=== PATIENT | female | born 1965 | race Caucasian/White ===

== ENCOUNTER 2019-04-06 12:01 | Emergency (ER) | payer MEDICARE ==
[2019-04-06] MEDS ORDERED: ASPIRIN 81 MG TABLET, CHEWABLE PO ONE (12:25)
--- NOTE | 2019-04-06 12:27 | ER Document Report ---
ED Medical Screen (RME) - General Chief Complaint: Shortness Of Breath Stated Complaint: CHEST PAIN Time Seen by Provider: 04/06/19 12:21 Mode of Arrival: Ambulatory Information source: Patient Notes: This 54-year-old female with history of COPD pneumonia Crohn's gastric bypass presents emergency department with shortness of breath for the past 2 weeks. Reports worsening in the last couple days. Reports she starting to talk in her sleep which is what happened when she was very low on oxygen in the past. Reports she has been intubated last year due to pneumonia. Reports she is also been revised by EMS due to to the lack of oxygen. O2 sat 90%. Patient does not use home oxygen. Also complains of chest tightness. I have greeted and performed a rapid initial assessment of this patient. A comprehensive ED assessment and evaluation of the patient, analysis of test results and completion of the medical decision making process will be conducted by additional ED providers. Dictation of this chart was performed using voice recognition software; therefore, there may be some unintended grammatical errors. - Related Data Allergies/Adverse Reactions: Penicillins Allergy (Verified 04/06/19 12:22) Physical Exam - Vital signs Vitals: Temp Pulse Resp BP Pulse Ox 98.1 F 86 20 126/87 H 90 L 04/06/19 12:18 04/06/19 12:18 04/06/19 12:18 04/06/19 12:18 04/06/19 12:18 Course - Vital Signs Vital signs: Temp Pulse Resp BP Pulse Ox 98.1 F 86 20 126/87 H 90 L 04/06/19 12:18 04/06/19 12:18 04/06/19 12:18 04/06/19 12:18 04/06/19 12:18
--- NOTE | 2019-04-06 13:03 | RADIOLOGY REPORT (SQ) ---
EXAM DESCRIPTION: CHEST 2 VIEWS COMPLETED DATE/TIME: 04/06/2019 12:53 pm REASON FOR STUDY: HX COPD SOB HX PNEUMONIA COMPARISON: None. EXAM PARAMETERS: NUMBER OF VIEWS: two views TECHNIQUE: Digital Frontal and Lateral radiographic views of the chest acquired. RADIATION DOSE: NA LIMITATIONS: none FINDINGS: LUNGS AND PLEURA: Emphysematous change with hyperinflation and flattening of the hemidiaph ragm. No focal consolidation, pleural effusion or pneumothorax. MEDIASTINUM AND HILAR STRUCTURES: No masses or contour abnormalities. HEART AND VASCULAR STRUCTURES: Normal heart size. Aortic atherosclerosis. BONES: No acute findings. HARDWARE: Prior cholecystectomy. Cervical fusion hardware. OTHER: No other significant finding. IMPRESSION: Emphysematous change without focal consolidation or other evidence of acute cardiopulmon jairo process. TECHNICAL DOCUMENTATION: JOB ID: [id number] [employer]- All Rights Reserved Reading location - IP/workstation name: [email or web address]
[2019-04-06 14:31] LABS: ABSOLUTE BASOPHILS # (AUTO) 0.1 10^3/uL (0.0-0.2); ABSOLUTE EOSINOPHILS # (AUTO) 0.1 10^3/uL (0.0-0.6); ABSOLUTE LYMPHOCYTES (AUTO) 2.8 10^3/uL (0.5-4.7); ABSOLUTE MONOCYTES (AUTO) 0.8 10^3/uL (0.1-1.4); BASOPHILS % (AUTO) 0.6 % (0-2); EOSINOPHILS % (AUTO) 1.3 % (0-6); HEMATOCRIT 46.8 % (36.0-47.0); HEMOGLOBIN 15.8 g/dL (12.0-15.5); LYMPHOCYTES % (AUTO) 29.1 % (13-45); MEAN CORPUSCULAR HEMOGLOBIN 30.7 pg (27.0-33.4); MEAN CORPUSCULAR HGB CONC 33.9 g/dL (32.0-36.0); MEAN CORPUSCULAR VOLUME 91 fl (80-97); MONOCYTES % (AUTO) 7.9 % (3-13); PLATELET COUNT 195 10^3/uL (150-450); RED BLOOD COUNT 5.16 10^6/uL (3.72-5.28); RED CELL DISTRIBUTION WIDTH 14.1 % (11.5-14.0); SEGMENTED NEUTROPHILS % (AUTO) 61.1 % (42-78); TOTAL CELLS COUNTED % (AUTO) 100 %; WHITE BLOOD COUNT 9.8 10^3/uL (4.0-10.5)
[2019-04-06 14:43] LABS: ARTERIAL BLOOD BASE EXCESS 1.5 mmol/L; ARTERIAL BLOOD H2CO3 1.22 mmol/L (1.05-1.35); ARTERIAL BLOOD HCO3 25.9 mmol/L (20-24); ARTERIAL BLOOD O2 SATURATION 91.3 % (94-98); ARTERIAL BLOOD PCO2 40.4 mmHg (35-45); ARTERIAL BLOOD PH 7.43 (7.35-7.45); ARTERIAL BLOOD PO2 59.3 mmHg (80-100); ARTERIAL BLOOD TOTAL CO2 27.2 mmol/L (21-25)
[2019-04-06 14:45] LABS: ARTERIAL BLOOD FIO2 ROOM AIR
--- NOTE | 2019-04-06 14:58 | ER Document Report ---
ED General - General Chief Complaint: Shortness Of Breath Stated Complaint: CHEST PAIN Time Seen by Provider: 04/06/19 12:21 Primary Care Provider: EILEEN NICK MD [ACTIVE STAFF] - Follow up in 3-5 days Mode of Arrival: Ambulatory Information source: Patient - HPI Notes: Patient presents with multiple complaints. She states she has been short of breath. It is worse with exertion and better with rest. She states that she is also had a dry cough. But no fever. She states that her roommate told her that she was talking to people that were not there. She states that when she moves around she also has an exacerbation of her chronic abdominal pain. Patient states that she is a former smoker. There is no radiation of her symptoms. They have been moderate. She states she has a history of COPD. She also states she has a history of Crohn's disease. - Related Data Allergies/Adverse Reactions: Penicillins Allergy (Verified 04/06/19 12:22) Past Medical History - General Information source: Patient - Social History Smoking Status: Current Every Day Smoker Frequency of alcohol use: None Drug Abuse: None Family History: Reviewed & Not Pertinent Patient has suicidal ideation: No Patient has homicidal ideation: No Pulmonary Medical History: Reports: Hx COPD, Hx Pneumonia Past Surgical History: Reports: Hx Abdominal Surgery - gastric by-pass Review of Systems - Review of Systems Constitutional: Malaise, Weakness Cardiovascular: Chest pain, Palpitations Respiratory: Cough, Short of breath Gastrointestinal: Abdominal pain, Nausea -: Yes All other systems reviewed and negative Physical Exam - Vital signs Vitals: Temp Pulse Resp BP Pulse Ox 98.1 F 86 20 126/87 H 90 L 04/06/19 12:18 04/06/19 12:18 04/06/19 12:18 04/06/19 12:18 04/06/19 12:18 Interpretation: Normal, Other - Although patient's oxygen saturation in triage w as 90% on room air I have not seen her the hypoxic yet. The patient has been on room air here for over an hour and is 97 to 98%. - General General appearance: Appears well, Alert - HEENT Head: Normocephalic, Atraumatic Eyes: Normal Pupils: PERRL - Respiratory Respiratory status: No respiratory distress Chest status: Nontender Breath sounds: Decreased air movement Chest palpation: Normal - Cardiovascular Rhythm: Regular Heart sounds: Normal auscultation Murmur: No - Abdominal Inspection: Normal Distension: No distension Bowel sounds: Normal Tenderness: Nontender Organomegaly: No organomegaly - Back Back: Normal, Nontender - Extremities General upper extremity: Normal inspection, Nontender, Normal color, Normal ROM, Normal temperature General lower extremity: Normal inspection, Nontender, Normal color, Normal ROM, Normal temperature, Normal weight bearing. No: Tyron's sign - Neurological Neuro grossly intact: Yes Cognition: Normal Orientation: AAOx4 Geraldine Coma Scale Eye Opening: Spontaneous Geraldine Coma Scale Verbal: Oriented Geraldine Coma Scale Motor: Obeys Commands [place] Coma Scale Total: 15 Speech: Normal Motor strength normal: LUE, RUE, LLE, RLE Sensory: Normal - Psychological Associated symptoms: Normal affect, Normal mood - Skin Skin Temperature: Warm Skin Moisture: Dry Skin Color: Normal Course - Re-evaluation Re-evalutation: 04/06/19 15:18 Patient reassessed just now. She has no significant complaints. Vital signs are unremarkable. She is saturating 96% on room air. She is in no respiratory distress. Work-up is essentially unremarkable. - Vital Signs Vital signs: Temp Pulse Resp BP Pulse Ox 98.1 F 86 20 126/87 H 97 04/06/19 12:18 04/06/19 12:18 04/06/19 12:18 04/06/19 12:18 04/06/19 12:25 - Laboratory Result Diagrams: 04/06/19 14:18 04/06/19 14:18 Laboratory results interpreted by me: 04/06/19 04/06/19 04/06/19 14:18 14:18 14:34 Hgb 15.8 H RDW 14.1 H ABG pO2 59.3 L ABG HCO3 25.9 H ABG Total CO2 27.2 H ABG O2 Saturation 91.3 L Creatinine 0.45 L - Diagnostic Test Radiology reviewed: Image reviewed, Reports reviewed - EKG Interpretation by Me EKG shows normal: Sinus rhythm Rate: Normal - 67 Rhythm: NSR [place]/QRS: No: Right axis deviation, Left axis deviation Discharge - Discharge Clinical Impression: COPD exacerbation Condition: Stable Disposition: HOME, SELF-CARE Instructions: Chronic Obstructive Lung Disease ([facility]) Additional Instructions: Please call your primary care doctor as soon as possible to arrange follow-up Prescriptions: Cefdinir 300 mg PO BID 7 Days #14 capsule Referrals: EILEEN NICK MD [ACTIVE STAFF] - Follow up in 3-5 days
[2019-04-06 15:04] LABS: CREATINE KINASE MB 0.69 ng/mL (<4.55)
[2019-04-06 15:05] LABS: TROPONIN I < 0.012 ng/mL
[2019-04-06 15:17] LABS: ALBUMIN 4.2 g/dL (3.5-5.0); ALKALINE PHOSPHATASE 61 U/L (38-126); ANION GAP 8 (5-19); ASPARTATE AMINO TRANSFERASE 33 U/L (14-36); BILIRUBIN,DIRECT 0.2 mg/dL (0.0-0.4); BILIRUBIN,TOTAL 0.5 mg/dL (0.2-1.3); BLOOD UREA NITROGEN 10 mg/dL (7-20); CALCIUM 9.6 mg/dL (8.4-10.2); CARBON DIOXIDE 27 mmol/L (22-30); CHLORIDE 103 mmol/L (98-107); CREATINE KINASE 40 U/L (30-135); GLUCOSE 94 mg/dL (75-110); TOTAL PROTEIN 7.2 g/dL (6.3-8.2)
[2019-04-06 16:35] VITALS: BP 110/75
--- NOTE | 2019-04-07 09:06 | EKG REPORT ---
SEVERITY:- BORDERLINE ECG - SINUS RHYTHM BORDERLINE T ABNORMALITIES, ANT-LAT LEADS : Confirmed by: Tim Coburn 07-Apr-2019 09:05:42
== END 2019-04-06 14:00 | disposition home or self-care (01) ==
LOC: EDBD → ER 12:01
DX: J44.1 Chronic obstructive pulmonary disease with (acute) exacerbation (principal); R06.02 Shortness of breath; R07.9 Chest pain, unspecified; R05 Cough; R10.9 Unspecified abdominal pain; G89.29 Other chronic pain; K50.90 Crohn's disease, unspecified, without complications; F17.200 Nicotine dependence, unspecified, uncomplicated
CPT/HCPCS: 36415; 71046; 80053; 82550; 82553; 82803; 84484; 85025; 93005; 93010; 99285

== ENCOUNTER 2019-04-16 16:22 | Inpatient (IN) | payer MEDICARE ==
--- NOTE | 2019-04-16 16:44 | ER Document Report ---
ED Medical Screen (RME) - General Chief Complaint: Altered Mental Status Stated Complaint: ALTERED MENTAL STATUS Time Seen by Provider: 04/16/19 16:39 Mode of Arrival: Wheelchair Information source: Patient Notes: 54-year-old female presents to ED for complaint of altered mental status with a okay set of 84- has 85 when she first walked in.. She COPD when she she also has Crohn's disease GI COPD. Her ex- who lives with her is with her and states she has done this multiple times in the past and when she gets oxygen on she clears up. She had very slurred speech and was not making complete sense we put her on 2 L of oxygen her O2 sat has come up to 95 and she is speaking more clearly. She states she feels much better now that she is on the O2. She is not on O2 at home. She has a history of Crohn's has a botched bypass and with minimal intestines but no colostomy bag. She states she had a colonoscopy last week and the week before and they were not able to get the call colonoscopy camera through either time. She states she has endoscopy scheduled for Thursday. I have greeted and performed a rapid initial assessment of this patient. A comprehensive ED assessment and evaluation of the patient, analysis of test results and completion of medical decision making process will be conducted by an additional ED providers. - Related Data Allergies/Adverse Reactions: Penicillins Allergy (Verified 04/06/19 12:22) Past Medical History Pulmonary Medical History: Reports: Hx COPD, Hx Pneumonia Past Surgical History: Reports: Hx Abdominal Surgery - gastric by-pass Physical Exam - Vital signs Vitals: Temp Pulse Resp BP Pulse Ox 98.7 F 96 16 124/83 85 L 04/16/19 16:29 04/16/19 16:29 04/16/19 16:29 04/16/19 16:29 04/16/19 16:29 Course - Vital Signs Vital signs: Temp Pulse Resp BP Pulse Ox 98.7 F 96 16 124/83 85 L 04/16/19 16:29 04/16/19 16:29 04/16/19 16:29 04/16/19 16:29 04/16/19 16:29
--- NOTE | 2019-04-16 18:02 | RADIOLOGY REPORT (SQ) ---
EXAM DESCRIPTION: CHEST 2 VIEWS COMPLETED DATE/TIME: 04/16/2019 5:26 pm REASON FOR STUDY: copd difficulty breathing COMPARISON: Chest x-ray 04/06/2019 EXAM PARAMETERS: NUMBER OF VIEWS: two views TECHNIQUE: Digital Frontal and Lateral radiographic views of the chest acquired. RADIATION DOSE: NA LIMITATIONS: none FINDINGS: LUNGS AND PLEURA: There is blunting of the bilateral costophrenic angles suggestive of sma ll pleural effusions. No consolidation or pneumothorax. Hyperlucent lungs are suggestive of emphyse ma. MEDIASTINUM AND HILAR STRUCTURES: No masses or contour abnormalities. HEART AND VASCULAR STRUCTURES: Heart normal size. No evidence for failure. BONES: No acute findings. HARDWARE: None in the chest. Orthopedic hardware at the lower cervical spine. IMPRESSION: Small bilateral pleural effusions. Emphysema. TECHNICAL DOCUMENTATION: JOB ID: [id number] 2010 [employer]- All Rights Reserved Reading location - IP/workstation name: [email or web address]
--- NOTE | 2019-04-16 18:16 | ER Document Report ---
ED Dizziness/Weakness - General Chief Complaint: Breathing Difficulty Stated Complaint: ALTERED MENTAL STATUS Time Seen by Provider: 04/16/19 16:39 Mode of Arrival: Wheelchair Notes: 54-year-old female with history of Crohn's disease, gastric bypass, COPD presents to the emergency department with chief complaint of altered mental status and shortness of breath. Per the triage note patient arrived with an SPO2 of 84 to 85%. Collateral information from her ex- per triage note states that she has done this multiple times in the past and when she receives oxygen her mental status improves. Patient states that she woke up and her family members were looking over her and she was on the floor and does not re member what happened. She was confused. Patient states that she is feeling better after receiving oxygen and she is mentating more clearly. Of note, the nurse saw her her previous visit and states that she does appear to be more obtunded. No fevers or chills, no new illness, no shortness of breath or chest pain, no palpitations. No other complaints TRAVEL OUTSIDE OF THE [place] IN LAST 30 DAYS: No - Related Data Allergies/Adverse Reactions: Penicillins Allergy (Verified 04/06/19 12:22) Past Medical History - General Information source: Patient - Social History Smoking Status: Current Every Day Smoker Family History: Reviewed & Not Pertinent Patient has suicidal ideation: No Patient has homicidal ideation: No Pulmonary Medical History: Reports: Hx COPD, Hx Pneumonia Past Surgical History: Reports: Hx Abdominal Surgery - gastric by-pass Review of Systems - Review of Systems Constitutional: See HPI EENT: No symptoms reported Cardiovascular: See HPI Respiratory: See HPI Gastrointestinal: See HPI Genitourinary: See HPI Female Genitourinary: No symptoms reported Musculoskeletal: No symptoms reported Skin: No symptoms reported Hematologic/Lymphatic: No symptoms reported Neurological/Psychological: See HPI Physical Exam - Vital signs Vitals: Temp Pulse Resp BP Pulse Ox 98.7 F 96 16 124/83 85 L 04/16/19 16:29 04/16/19 16:29 04/16/19 16:29 04/16/19 16:29 04/16/19 16:29 - Notes Notes: PHYSICAL EXAMINATION: Reviewed vital signs and charting by RN GENERAL: Alert, interacts well. No acute distress. HEAD: Normocephalic, atraumatic. EYES: Pupils equal and round. Extraocular movements intact. ENT: Oral mucosa moist, tongue midline. NECK: Full range of motion. Trachea midline. LUNGS: Clear to auscultation bilaterally, no wheezes, rales, or rhonchi. No respiratory distress. HEART: Regular rate and rhythm. No murmur ABDOMEN: soft, non-tender. No distention. Bowel sounds present EXTREMITIES: Moves all 4 extremities spontaneously. No edema, No cyanosis. NEURO: A &O X 3, normal speech, PERRL, EOMI, SILT, follows commands in all 4 extremities, no gross abnormalities of cranial nerves, no focal neuro deficits, no pronator drift, [id number] testing normal, distribution field technician strength 5/5 bilateral, 5/5 strength in both proximal and distal upper and lower extremities PSYCH: Normal affect, normal mood. SKIN: Warm, dry, normal turgor. No rashes or lesions noted. Course - Re-evaluation Re-evalutation: 04/16/19 19:56 Patient presented somnolent and borderline obtunded. Nurse Fauzia saw her her most recent visit and states that her mental status is significantly worse today. Work-up overall unremarkable, labs grossly within normal limits other than ABG done which did show a PCO2 of 65 and a PO2 of 51.8. Chest x-ray showed small bilateral pleural effusions. EKG showed sinus rhythm with a rate of 79. Patient would frequently doze off while speaking midsentence so after discussing with my attending physician the decision was made to initiate BiPAP and called to admit the patient. I contacted Dr. Jaime, hospitalist, who is in the middle of a code right now so I will attempt to call him back. 04/16/19 20:08 04/16/19 20:[address] Jaime, hospitalist who is accepting the patient for full admission to [facility]. - Vital Signs Vital signs: Temp Pulse Resp BP Pulse Ox 98.7 F 96 18 107/76 94 04/16/19 16:29 04/16/19 16:29 04/16/19 18:01 04/16/19 18:00 04/16/19 18:01 - Laboratory Result Diagrams: 04/16/19 18:35 04/16/19 17:22 Laboratory results interpreted by me: 04/16/19 04/16/19 17:22 19:01 Carbonic Acid 1.90 H ABG pH 7.32 L ABG pCO2 63.0 H ABG pO2 51.8 L ABG HCO3 31.7 H ABG Total CO2 33.7 H ABG O2 Saturation 82.9 L Creatinine 0.43 L AST 42 H Discharge - Discharge Clinical Impression: Hypoxia, Hypercarbia Altered mental status Qualifiers: Altered mental status type: somnolence Qualified Code(s): R40.0 - Somnolence Condition: Stable Disposition: ADMITTED INPATIENT Admitting Provider: Addison (Hospitalist) Unit Admitted: [facility]
[2019-04-16 18:25] LABS: ALBUMIN 4.3 g/dL (3.5-5.0); ALKALINE PHOSPHATASE 76 U/L (38-126); ANION GAP 10 (5-19); ASPARTATE AMINO TRANSFERASE 42 U/L (14-36); BILIRUBIN,DIRECT 0.3 mg/dL (0.0-0.4); BILIRUBIN,TOTAL 0.5 mg/dL (0.2-1.3); BLOOD UREA NITROGEN 11 mg/dL (7-20); CALCIUM 9.4 mg/dL (8.4-10.2); CARBON DIOXIDE 30 mmol/L (22-30); CHLORIDE 99 mmol/L (98-107); CREATINE KINASE 55 U/L (30-135); GLUCOSE 85 mg/dL (75-110); POTASSIUM 4.4 mmol/L (3.6-5.0); TOTAL PROTEIN 7.9 g/dL (6.3-8.2)
[2019-04-16 18:31] LABS: ALCOHOL < 10 mg/dL (NONE DETECTED)
[2019-04-16 18:38] LABS: TROPONIN I < 0.012 ng/mL
[2019-04-16 18:51] LABS: ABSOLUTE EOSINOPHILS # (AUTO) 0.2 10^3/uL (0.0-0.6); ABSOLUTE LYMPHOCYTES (AUTO) 3.4 10^3/uL (0.5-4.7); ABSOLUTE MONOCYTES (AUTO) 0.9 10^3/uL (0.1-1.4); ABSOLUTE NEUT (AUTO) 5.9 10^3/uL (1.7-8.2); BASOPHILS % (AUTO) 0.5 % (0-2); EOSINOPHILS % (AUTO) 1.5 % (0-6); HEMATOCRIT 41.5 % (36.0-47.0); HEMOGLOBIN 14.1 g/dL (12.0-15.5); LYMPHOCYTES % (AUTO) 32.6 % (13-45); MEAN CORPUSCULAR HEMOGLOBIN 30.5 pg (27.0-33.4); MEAN CORPUSCULAR HGB CONC 33.9 g/dL (32.0-36.0); MEAN CORPUSCULAR VOLUME 90 fl (80-97); MONOCYTES % (AUTO) 8.5 % (3-13); PLATELET COUNT 198 10^3/uL (150-450); RED BLOOD COUNT 4.61 10^6/uL (3.72-5.28); RED CELL DISTRIBUTION WIDTH 13.5 % (11.5-14.0); SEGMENTED NEUTROPHILS % (AUTO) 56.9 % (42-78); TOTAL CELLS COUNTED % (AUTO) 100 %; WHITE BLOOD COUNT 10.4 10^3/uL (4.0-10.5)
[2019-04-16 18:57] LABS: INTERNATIONAL RATION (INR) 1.07
[2019-04-16 18:58] LABS: PARTIAL THROMBOPLASTIN TIME 29.4 SEC (23.5-35.8)
[2019-04-16 19:11] LABS: ARTERIAL BLOOD BASE EXCESS 3.7 mmol/L; ARTERIAL BLOOD HCO3 31.7 mmol/L (20-24); ARTERIAL BLOOD O2 SATURATION 82.9 % (94-98); ARTERIAL BLOOD PH 7.32 (7.35-7.45); ARTERIAL BLOOD PO2 51.8 mmHg (80-100); ARTERIAL BLOOD TOTAL CO2 33.7 mmol/L (21-25)
[2019-04-16 19:12] LABS: ARTERIAL BLOOD FIO2 ROOM AIR
--- NOTE | 2019-04-16 19:18 | EKG REPORT ---
SEVERITY:- NORMAL ECG - SINUS RHYTHM : Confirmed by: Ladi Stern MD 16-Apr-2019 19:17:13
[2019-04-16 21:07] LABS: APPEARANCE,URINE SLIGHTLY-CLOUDY; BILIRUBIN,URINE NEGATIVE (NEGATIVE); CALCIUM OXALATE CRYSTALS,URINE FEW /HPF; GLUCOSE, URINE NEGATIVE (NEGATIVE); KETONES,URINE TRACE mg/dL (NEGATIVE); LEUKOCYTE ESTERASE,URINE NEGATIVE (NEGATIVE); NITRITE,URINE NEGATIVE (NEGATIVE); PROTEIN,URINE NEGATIVE (NEGATIVE); URINE SPECIFIC GRAVITY 1.026
[2019-04-16 21:10] LABS: COLOR,URINE DARK YELLOW
[2019-04-16 21:22] LABS: URINE AMPHETAMINES SCREEN NEGATIVE; URINE BARBITURATES SCREEN NEGATIVE; URINE BENZODIAZEPINES SCREEN UNCONFIRMED POSITIVE; URINE COCAINE SCREEN NEGATIVE; URINE MARIJUANA (THC) SCREEN NEGATIVE; URINE METHADONE SCREEN NEGATIVE; URINE PHENCYCLIDINE SCREEN NEGATIVE
--- NOTE | 2019-04-16 21:26 | PDOC H&P ---
History of Present Illness Admission Date/PCP: 04/16/19 20:45 No local PCP Patient complains of: Altered mental status History of Present Illness: BERTA DUMAS is a 54 year old female who presented to the emergency room with an acute altered mental status. Patient was brought to the emergency room by her ex- because she became confused, somewhat combative and very drowsy while they were playing pool at a local pool cho. Her ex- explained that in the past she has improved when she receives oxygen in such situations in the past thus prompting him to bring her to the emergency room. The patient verifies his assertion and further admits that she was told her COPD was severe and that she should be on chronic oxygen therapy at home and should use CPAP at night, both of which were prescribed for her by her acute care surgeon in [place]. She admits that she has been in denial about her diagnosis and has refused to use home oxygen or CPAP. She admits that she is on chronic pain management and takes multiple controlled substances as part of her therapy. She denies any acc ompanying or associated signs and symptoms and she has not identified any additional aggravating or ameliorating factors for her altered mental status. In the emergency room the patient was found to be obtunded but arousable to loud verbal and mildly painful stimuli. An arterial blood gas was obtained which showed a PCO2 of 65 a PO2 of 50 and an oxygen saturation of 88%. Patient was subsequently placed on BiPAP and admitted for further evaluation and treatment. Past Medical History Cardiac Medical History: Denies: Coronary Artery Disease, Hypertension Pulmonary Medical History: Reports: Chronic Obstructive Pulmonary Disease (COPD), Pneumonia EENT Medical History: Denies: Cataracts, Ears - Hearing aids Neurological Medical History: Denies: Hemorrhagic CVA, Ischemic CVA, Seizures Endocrine Medical History: Reports: Obesity Denies: Diabetes Mellitus Type 1, Diabetes Mellitus Type 2, Hyperthyroidism, Hypothyroidism Renal/ Medical History: Denies: Chronic Kidney Disease, Nephrolithiasis Malignancy Medical History: Reports: None GI Medical History: Reports: Crohn's Disease, Other - Multiple abdominal wall hernias, status post gastric bypass surgery Denies: Cirrhosis, Hepatitis, Ulcerative Colitis Musculoskeltal Medical History: Denies: Arthritis, Gout Skin Medical History: Denies: Eczema, Psoriasis Psychiatric Medical History: Reports: Tobacco Dependency Denies: Alcohol Dependency, Substance Abuse Traumatic Medical History: Reports: None Hematology: Denies: Anemia, Bleeding Tendencies Infectious Medical History: Reports: None Past Surgical History Past Surgical History: Reports: Cholecystectomy, Gastric Bypass Surgery, Herniorrhaphy - Multiple ventral hernia repairs, Orthopedic Surgery - Cervical spine surgery (discectomies), Other - Colonoscopy, bowel perforation repair Social History Information Source: Patient, Relative Lives with: Alone Smoking Status: Former Smoker Electronic Cigarette use?: No Frequency of Alcohol Use: None Hx Recreational Drug Use: No Drugs: None Hx Prescription Drug Abuse: No Past Social History Note: On chronic pain management with current contract at [facility]. - Advance Directive Resuscitation Status: Full Code Surrogate healthcare decision maker:: Fab Dumas Family History Family History: CAD - Mother and brother, COPD - Father, DM - Father Parental Family History Reviewed: Yes Children Family History Reviewed: No Sibling(s) Family History Reviewed.: Yes Medication/Allergy Home Medications: Cefdinir 300 mg PO BID 7 Days #14 capsule 04/06/19 Allergies/Adverse Reactions: Penicillins Allergy (Verified 04/06/19 12:22) Review of Systems Constitutional: ABSENT: chills, fever(s) Eyes: ABSENT: visual disturbances, other - Eye pain Ears: ABSENT: hearing changes, other - Ear pain Nose, Mouth, and Throat: ABSENT: mouth pain, sore throat Cardiovascular: ABSENT: chest pain, palpitations Respiratory: ABSENT: cough, dyspnea Gastrointestinal: ABSENT: abdominal pain, constipation, diarrhea, nausea, vomiting Genitourinary: ABSENT: dysuria, hematuria Musculoskeletal: PRESENT: other - Chronic pain syndrome. ABSENT: joint swelling, muscle weakness Integumentary: ABSENT: pruritus, rash Neurological: PRESENT: as per HPI, confusion, other - Somnolence. ABSENT: convulsions, focal weakness, memory loss, syncope Psychiatric: ABSENT: anxiety, depression Endocrine: ABSENT: cold intolerance, heat intolerance Hematologic/Lymphatic: ABSENT: easy bleeding, easy bruising Allergic/Immunologic: ABSENT: seasonal rhinorrhea Physical Exam Vital Signs: Temp Pulse Resp BP Pulse Ox 98.7 F 96 18 107/76 94 04/16/19 16:29 04/16/19 16:29 04/16/19 18:01 04/16/19 18:00 04/16/19 18:01 Intake & Output 04/14/19 04/15/19 04/16/19 23:59 23:59 23:59 Weight 53.07 kg General appearance: PRESENT: no acute distress, cooperative Head exam: PRESENT: atraumatic, normocephalic Eye exam: PRESENT: conjunctiva pink. ABSENT: conjunctival injection, scleral icterus Ear exam: PRESENT: normal external ear exam. ABSENT: bleeding, drainage Mouth exam: PRESENT: dry mucosa, neck supple Neck exam: ABSENT: thyromegaly, tracheal deviation Respiratory exam: PRESENT: decreased breath sounds - Minimally decreased breath sounds noted throughout all grady consistent with mild to moderate COPD, prolonged expiratory phas - Mildly prolonged expiratory phase throughout all grady, symmetrical, unlabored, wheezes - Mild expiratory wheezes throughout all grady Cardiovascular exam: PRESENT: RRR. ABSENT: clicks, gallop, rubs Pulses: PRESENT: normal radial pulses, normal dorsalis pedis pul Vascular exam: PRESENT: normal capillary refill. ABSENT: pallor GI/Abdominal exam: PRESENT: normal bowel sounds, soft, tenderness - Tender to palpation over entire abdomen especially in areas of obvious ventral hernias Rectal exam: PRESENT: deferred Extremities exam: ABSENT: joint swelling, pedal edema Musculoskeletal exam: ABSENT: deformity, dislocation Neurological exam: PRESENT: alert, oriented to person, oriented to place, oriented to time, oriented to situation, CN II-XII grossly intact. ABSENT: motor sensory deficit Psychiatric exam: PRESENT: appropriate affect, normal mood Skin exam: PRESENT: dry, intact, warm. ABSENT: jaundice, rash, urticaria Results Laboratory Results: 04/16/19 18:35 04/16/19 17:22 04/16/19 04/16/19 04/16/19 17:22 17:22 17:22 WBC Cancelled RBC Cancelled Hgb Cancelled Hct Cancelled MCV Cancelled MCH Cancelled MCHC Cancelled RDW Cancelled Plt Count Cancelled Seg Neutrophils % Cancelled Carbonic Acid HCO3/H2CO3 Ratio ABG pH ABG pCO2 ABG pO2 ABG HCO3 ABG O2 Saturation ABG Base Excess FiO2 Sodium 138.5 Potassium 4.4 Chloride 99 Carbon Dioxide 30 Anion Gap 10 BUN 11 Creatinine 0.43 L Est GFR ( Amer) > 60 Glucose 85 Calcium 9.4 Magnesium 2.3 Total Bilirubin 0.5 AST 42 H Alkaline Phosphatase 76 Ammonia 25.5 Total Protein 7.9 Albumin 4.3 Urine Color Urine Appearance Urine pH Ur Specific [place] Urine Protein Urine Glucose (UA) Urine Ketones Urine Blood Urine Nitrite Ur Leukocyte Esterase Urine WBC (Auto) Urine RBC (Auto) 04/16/19 04/16/19 04/16/19 18:35 19:01 20:40 WBC 10.4 RBC 4.61 Hgb 14.1 Hct 41.5 MCV 90 MCH 30.5 MCHC 33.9 RDW 13.5 Plt Count 198 Seg Neutrophils % 56.9 Carbonic Acid 1.90 H HCO3/H2CO3 Ratio 16:1 ABG pH 7.32 L ABG pCO2 63.0 H ABG pO2 51.8 L ABG HCO3 31.7 H ABG O2 Saturation 82.9 L ABG Base Excess 3.7 FiO2 ROOM AIR Sodium Potassium Chloride Carbon Dioxide Anion Gap BUN Creatinine Est GFR ( Amer) Glucose Calcium Magnesium Total Bilirubin AST Alkaline Phosphatase Ammonia Total Protein Albumin Urine Color DARK YELLOW Urine Appearance SLIGHTLY-CLOUDY Urine pH 5.0 Ur Specific [place] 1.026 Urine Protein NEGATIVE Urine Glucose (UA) NEGATIVE Urine Ketones TRACE H Urine Blood NEGATIVE Urine Nitrite NEGATIVE Ur Leukocyte Esterase NEGATIVE Urine WBC (Auto) 1 Urine RBC (Auto) 2 04/16/19 04/16/19 17:22 17:22 Creatine Kinase 55 CK-MB (CK-2) 1.20 Troponin I < 0.012 Impressions: Chest X-Ray 04/16/19 16:45 IMPRESSION: Small bilateral pleural effusions. Emphysema. Assessment and Plan - Diagnosis (1) Acute respiratory failure with hypoxia and hypercapnia Is this a current diagnosis for this admission?: Yes (2) Acute delirium Is this a current diagnosis for this admission?: Yes (3) COPD (chronic obstructive pulmonary disease) Qualifiers: COPD type: unspecified COPD Qualified Code(s): J44.9 - Chronic obstructive pulmonary disease, unspecified Is this a current diagnosis for this admission?: Yes (4) Crohn's disease in remission Is this a current diagnosis for this admission?: Yes (5) Chronic pain syndrome Is this a current diagnosis for this admission?: Yes (6) Opioid dependence in controlled environment Is this a current diagnosis for this admission?: Yes - Plan Summary Summary: Patient is admitted to the IMCU unit and will be monitored closely throughout her hospital stay. She will be treated with BiPAP adjusted to provide adequate oxygenation and to eliminate her hypercapnia. ABGs will be obtained as needed. She will be treated with a standard COPD pulmonary toilet utilizing Xopenex, Atrovent and Pulmicort nebulizers. Her mental/neurologic status will be reassessed frequently with neuro checks. A trial dose of Narcan 0.4 mg IV x1 will be considered if patient does not show improvement. She will be continued on her usual oral medications as appropriate when she regains full responsiveness and mental clarity. - Time Time Spent with patient: 25-34 minutes Medications reviewed and adjusted accordingly: Yes Anticipated discharge: Home - Inpatient Certification Based on my medical assessment, after consideration of the patient's comorbidities, presenting symptoms, or acuity I expect that the services needed warrant INPATIENT care.: Yes I certify that my determination is in accordance with my understanding of Medicare's requirements for reasonable and necessary INPATIENT services [42 CFR 412.3e].: Yes Medical Necessity: Need Close Monitoring Due to Risk of Patient Decompensation, Need For Continuous Telemetry Monitoring, Need for Nebulizer Therapy and Monitoring of Response, Need for Neurological Checks, Need for Pain Control, Risk of Complication if Not Cared For in Hospital, Other - Need for noninvasive airway pressure support and monitoring of respiratory failure
[2019-04-16] MEDS ORDERED: RINGERS SOLUTION,LACTATED 1,000 ML IV PRN (22:05)
[2019-04-16] MEDS ORDERED: GLUCAGON,HUMAN RECOMB 1 MG INJ SUBCUT PRN (22:05)
[2019-04-16] MEDS ORDERED: DEXTROSE 40% GEL 15 GM TUBE PO PRN ×2 (22:05)
[2019-04-16] MEDS ORDERED: DEXTROSE 50%-WATER 25 GM/50 ML DISP.SYRIN IV PRN ×2 (22:05)
[2019-04-16] MEDS ORDERED: FAMOTIDINE INJ/PF 20 MG/2 ML SDV IV SCH (22:15)
--- NOTE | 2019-04-16 23:43 | RADIOLOGY REPORT (SQ) ---
EXAM DESCRIPTION: CT HEAD WITHOUT IV CONTRAST COMPLETED DATE/TME: 04/16/2019 00:00 EXAM DESCRIPTION: CT of the head without contrast CLINICAL HISTORY: Altered mental status found on floor COMPARISON: None available TECHNIQUE: Axial CT of the head obtained from the skull apex to the skull base without contrast. FINDINGS: No acute intracranial hemorrhage identified. No mass, mass effect, shift of the midline, abnormal extra-axial fluid collection or CT evidence of acute ischemic change identified. The ventricular system is unremarkable. No acute abnormalities of the supratentorial white matter, basal ganglia, cerebellum, or brainstem. The visualized paranasal sinuses and the mastoids are clear. No skull fracture identified. Visualized orbits and globes are unremarkable. DLP:990.56 mGy-cm IMPRESSION: 1. No acute intracranial abnormality identified. This exam was performed according to our departmental dose-optimization program, which includes automated exposure control, adjustment of the mA and/or kV according to patient size and/or use of iterative reconstruction technique.
--- NOTE | 2019-04-16 23:52 | RADIOLOGY REPORT (SQ) ---
EXAM DESCRIPTION: CT CERVICAL SPINE WITHOUT IV CONTRAST COMPLETED DATE/TME: 04/16/2019 00:00 CLINICAL HISTORY: Altered mental status found on floor COMPARISON: None available TECHNIQUE: Axial CT of the cervical spine obtained without contrast. FINDINGS: Anterior fixation C5-C7 without definite hardware abnormality. The atlantoaxial, atlantodental, and occipitoatlantal intervals are preserved. No fracture identified. Vertebral body height preserved. Prevertebral soft tissues are unremarkable. Intervertebral disc height at C3 to/3 through C4/5 relatively well-preserved. Mild facet arthropathy. Visualized skull base is intact. No fracture of the visualized facial bones. Visualized mastoid air cells and paranasal sinuses are well aerated. Visualized thyroid is unremarkable. No cervical lymphadenopathy. No pneumothorax in the visualized lung apices. IMPRESSION: 1. No acute fracture or subluxation of the cervical spine. 2. Degenerative change of the cervical spine with anterior fusion at C5-C7 This exam was performed according to our departmental dose-optimization program, which includes automated exposure control, adjustment of the mA and/or kV according to patient size and/or use of iterative reconstruction technique.
[2019-04-17] MEDS ORDERED: MAG HYDROX/AL HYDROX/SIMETH SUSP 30 ML UDCUP PO PRN (00:13)
[2019-04-17] MEDS ORDERED: MAGNESIUM HYDROXIDE SUSP 30 ML UDCUP PO PRN (00:13)
[2019-04-17] MEDS: LEVALBUTEROL HCL NEB 1.25 MG/3 ML AMPUL NEB SCH ×3 (00:33→15:51)
[2019-04-17 00:57] LABS: ANION GAP 6 (5-19); BLOOD UREA NITROGEN 10 mg/dL (7-20); CALCIUM 9.1 mg/dL (8.4-10.2); CARBON DIOXIDE 28 mmol/L (22-30); CHLORIDE 102 mmol/L (98-107); CREATINE KINASE 37 U/L (30-135); GLUCOSE 91 mg/dL (75-110); POTASSIUM 4.1 mmol/L (3.6-5.0)
[2019-04-17] MEDS ORDERED: CYANOCOBALAMIN (VITAMIN B-12) INJ 1000 MCG/1 ML VIAL IM ONE ×2 (01:00→06:00)
[2019-04-17 01:15] LABS: CREATINE KINASE MB 0.99 ng/mL (<4.55)
[2019-04-17 01:18] LABS: TROPONIN I < 0.012 ng/mL
[2019-04-17 01:21] LABS: FREE T3 3.56 pg/mL (2.77-5.27); FREE T4 (FREE THYROXINE) 1.23 ng/dL (0.78-2.19)
[2019-04-17 01:35] LABS: THYROID STIMULATING HORMONE 1.06 uIU/mL (0.47-4.68)
[2019-04-17] MEDS: OXYCODONE HCL IR 5 MG TABLET PO PRN ×3 (04:32→16:59)
[2019-04-17 05:56] LABS: HEMATOCRIT 40.6 % (36.0-47.0); HEMOGLOBIN 13.7 g/dL (12.0-15.5); MEAN CORPUSCULAR HEMOGLOBIN 30.5 pg (27.0-33.4); MEAN CORPUSCULAR HGB CONC 33.8 g/dL (32.0-36.0); MEAN CORPUSCULAR VOLUME 90 fl (80-97); PLATELET COUNT 205 10^3/uL (150-450); RED CELL DISTRIBUTION WIDTH 13.7 % (11.5-14.0); WHITE BLOOD COUNT 12.4 10^3/uL (4.0-10.5)
[2019-04-17 06:31] LABS: CREATINE KINASE MB 0.87 ng/mL (<4.55)
[2019-04-17] MEDS: HEPARIN SOD (PORCINE) 5,000 UNIT/ML 1 ML VIAL SUBCUT SCH ×2 (06:31→13:39)
[2019-04-17] MEDS: PANTOPRAZOLE SODIUM 40 MG TABLET.DR PO SCH (06:32)
[2019-04-17 06:39] LABS: TROPONIN I < 0.012 ng/mL
[2019-04-17] MEDS: ONDANSETRON HCL INJ/PF 4 MG/2 ML SDV IV PRN ×3 (07:40→16:09)
[2019-04-17] MEDS: IPRATROPIUM BROMIDE 0.02% NEB 0.5 MG/2.5 ML AMPUL NEB SCH ×2 (08:24→15:51)
[2019-04-17] MEDS: BUDESONIDE NEB 0.5 MG/2 ML AMPUL NEB SCH ×2 (08:24→20:13)
--- NOTE | 2019-04-17 08:28 | PDOC PROGRESS REPORT ---
Subjective Progress Note for:: 04/17/19 Subjective:: 04/17/2019-no complaints this a.m. sitting up in the bed no signs of acute distress Reason For Visit: ACUTE RESPIRATORY FAILURE WITH HYPOXIA/HYPERCAPNIA Physical Exam Vital Signs: Temp Pulse Resp BP Pulse Ox 98.4 F 94 12 90/69 L 95 04/17/19 03:59 04/17/19 03:59 04/17/19 03:59 04/17/19 03:59 04/17/19 03:59 Intake & Output 04/16/19 04/17/19 04/18/19 06:59 06:59 06:59 Intake Total 440 Balance 440 Weight 58.2 kg General appearance: PRESENT: no acute distress, well-developed, well-nourished Neck exam: ABSENT: carotid bruit, JVD, lymphadenopathy, thyromegaly Respiratory exam: PRESENT: clear to auscultation wally, decreased breath sounds, symmetrical, unlabored Cardiovascular exam: PRESENT: RRR. ABSENT: diastolic murmur, rubs, systolic murmur Pulses: PRESENT: normal dorsalis pedis pul Vascular exam: PRESENT: normal capillary refill GI/Abdominal exam: PRESENT: normal bowel sounds, soft. ABSENT: distended, guarding, mass, organolmegaly, rebound, tenderness Extremities exam: PRESENT: full ROM. ABSENT: calf tenderness, clubbing, pedal edema Neurological exam: PRESENT: alert, awake, oriented to person, oriented to place, oriented to time, oriented to situation, CN II-XII grossly intact. ABSENT: motor sensory deficit Psychiatric exam: PRESENT: appropriate affect, normal mood. ABSENT: homicidal ideation, suicidal ideation Skin exam: PRESENT: dry, intact, warm. ABSENT: cyanosis, rash Results Laboratory Results: 04/17/19 05:42 04/16/19 23:50 04/16/19 04/16/19 04/16/19 17:22 17:22 17:22 WBC Cancelled RBC Cancelled Hgb Cancelled Hct Cancelled MCV Cancelled MCH Cancelled MCHC Cancelled RDW Cancelled Plt Count Cancelled Seg Neutrophils % Cancelled Carbonic Acid HCO3/H2CO3 Ratio ABG pH ABG pCO2 ABG pO2 ABG HCO3 ABG O2 Saturation ABG Base Excess FiO2 Sodium 138.5 Potassium 4.4 Chloride 99 Carbon Dioxide 30 Anion Gap 10 BUN 11 Creatinine 0.43 L Est GFR ( Amer) > 60 Glucose 85 Calcium 9.4 Magnesium 2.3 Total Bilirubin 0.5 AST 42 H Alkaline Phosphatase 76 Ammonia 25.5 Total Protein 7.9 Albumin 4.3 TSH Free T4 Free T3 pg/mL Urine Color Urine Appearance Urine pH Ur Specific [place] Urine Protein Urine Glucose (UA) Urine Ketones Urine Blood Urine Nitrite Ur Leukocyte Esterase Urine WBC (Auto) Urine RBC (Auto) 04/16/19 04/16/19 04/16/19 18:35 19:01 20:40 WBC 10.4 RBC 4.61 Hgb 14.1 Hct 41.5 MCV 90 MCH 30.5 MCHC 33.9 RDW 13.5 Plt Count 198 Seg Neutrophils % 56.9 Carbonic Acid 1.90 H HCO3/H2CO3 Ratio 16:1 ABG pH 7.32 L ABG pCO2 63.0 H ABG pO2 51.8 L ABG HCO3 31.7 H ABG O2 Saturation 82.9 L ABG Base Excess 3.7 FiO2 ROOM AIR Sodium Potassium Chloride Carbon Dioxide Anion Gap BUN Creatinine Est GFR ( Amer) Glucose Calcium Magnesium Total Bilirubin AST Alkaline Phosphatase Ammonia Total Protein Albumin TSH Free T4 Free T3 pg/mL Urine Color DARK YELLOW Urine Appearance SLIGHTLY-CLOUDY Urine pH 5.0 Ur Specific [place] 1.026 Urine Protein NEGATIVE Urine Glucose (UA) NEGATIVE Urine Ketones TRACE H Urine Blood NEGATIVE Urine Nitrite NEGATIVE Ur Leukocyte Esterase NEGATIVE Urine WBC (Auto) 1 Urine RBC (Auto) 2 04/16/19 04/16/19 04/17/19 23:50 23:50 05:42 WBC RBC Hgb Hct MCV MCH MCHC RDW Plt Count Seg Neutrophils % Carbonic Acid HCO3/H2CO3 Ratio ABG pH ABG pCO2 ABG pO2 ABG HCO3 ABG O2 Saturation ABG Base Excess FiO2 Sodium 135.5 L Potassium 4.1 Chloride 102 Carbon Dioxide 28 Anion Gap 6 BUN 10 Creatinine 0.36 L Est GFR ( Amer) > 60 Glucose 91 Calcium 9.1 Magnesium 2.1 Total Bilirubin AST Alkaline Phosphatase Ammonia Total Protein Albumin TSH 1.06 Free T4 1.23 Free T3 pg/mL 3.56 Urine Color Urine Appearance Urine pH Ur Specific [place] Urine Protein Urine Glucose (UA) Urine Ketones Urine Blood Urine Nitrite Ur Leukocyte Esterase Urine WBC (Auto) Urine RBC (Auto) 04/17/19 05:42 WBC 12.4 H RBC 4.50 Hgb 13.7 Hct 40.6 MCV 90 MCH 30.5 MCHC 33.8 RDW 13.7 Plt Count 205 Seg Neutrophils % Carbonic Acid HCO3/H2CO3 Ratio ABG pH ABG pCO2 ABG pO2 ABG HCO3 ABG O2 Saturation ABG Base Excess FiO2 Sodium Potassium Chloride Carbon Dioxide Anion Gap BUN Creatinine Est GFR ( Amer) Glucose Calcium Magnesium Total Bilirubin AST Alkaline Phosphatase Ammonia Total Protein Albumin TSH Free T4 Free T3 pg/mL Urine Color Urine Appearance Urine pH Ur Specific [place] Urine Protein Urine Glucose (UA) Urine Ketones Urine Blood Urine Nitrite Ur Leukocyte Esterase Urine WBC (Auto) Urine RBC (Auto) 04/16/19 04/16/19 04/16/19 17:22 17:22 23:50 Creatine Kinase 55 37 CK-MB (CK-2) 1.20 Troponin I < 0.012 04/16/19 04/17/19 04/17/19 23:50 05:42 05:42 Creatine Kinase 36 CK-MB (CK-2) 0.99 0.87 Troponin I < 0.012 < 0.012 Impressions: Cervical Spine CT 04/16/19 00:00 IMPRESSION: 1. No acute fracture or subluxation of the cervical spine. 2. Degenerative change of the cervical spine with anterior fusion at C5-C7 This exam was performed according to our departmental dose-optimization program, which includes automated exposure control, adjustment of the mA and/or kV according to patient size and/or use of iterative reconstruction technique. Head CT 04/16/19 00:00 IMPRESSION: 1. No acute intracranial abnormality identified. This exam was performed according to our departmental dose-optimization program, which includes automated exposure control, adjustment of the mA and/or kV according to patient size and/or use of iterative reconstruction technique. Chest X-Ray 04/16/19 16:45 IMPRESSION: Small bilateral pleural effusions. Emphysema. Assessment and Plan - Plan Summary Summary: Patient is admitted to the IMCU unit and will be monitored closely throughout her hospital stay. She will be treated with BiPAP adjusted to provide adequate oxygenation and to eliminate her hypercapnia. ABGs will be obtained as needed. She will be treated with a standard COPD pulmonary toilet utilizing Xopenex, Atrovent and Pulmicort nebulizers. Her mental/neurologic status will be reasses sed frequently with neuro checks. A trial dose of Narcan 0.4 mg IV x1 will be considered if patient does not show improvement. She will be continued on her usual oral medications as appropriate when she regains full responsiveness and mental clarity. 04/17/2019- acute respiratory failure with hypoxia and hypercapnia-improved at this time. Patient did wear BiPAP overnight we will continue BiPAP while asleep. Patient sitting up in bed at this time wearing nasal cannula able speak in full sent ences lungs are diminished throughout no adventitious breath sounds. Continue bronchodilators steroids and other supportive measures. Acute delirium-most likely secondary to hypercapnia. Patient's mentality is with in her normal range this morning. COPD exacerbation-improved continue bronchodilators steroids and other modalities. Crohn's disease in remission-stable continue to follow Chronic pain syndrome-stable continue to follow Opioid dependence in a controlled environment-stable - Time Time Spent with patient: 15-24 minutes - Inpatient Certification Based on my medical assessment, after consideration of the patient's comorbidities, presenting symptoms, or acuity I expect that the services needed warrant INPATIENT care.: Yes I certify that my determination is in accordance with my understanding of Medicare's requirements for reasonable and necessary INPATIENT services [42 CFR 412.3e].: Yes Medical Necessity: Other - Respiratory support
[2019-04-17] MEDS: DOCUSATE SODIUM 100 MG CAPSULE PO SCH ×2 (11:05→17:00)
[2019-04-17] MEDS: MELOXICAM 7.5 MG TABLET PO SCH (11:05)
[2019-04-17] MEDS: NICOTINE 14 MG/24 HR PATCH.TD24 TD SCH (11:45)
[2019-04-17 13:31] LABS: CREATINE KINASE MB 0.61 ng/mL (<4.55); TROPONIN I < 0.012 ng/mL
[2019-04-17] MEDS ORDERED: OXYCODONE HCL IR 5 MG TABLET PO PRN (17:45)
[2019-04-17] MEDS: LEVALBUTEROL HCL NEB 0.63 MG/3 ML AMPUL NEB PRN (20:13)
[2019-04-17] MEDS: ALPRAZOLAM 0.5 MG TABLET PO PRN (22:36)
[2019-04-18] MEDS: LEVALBUTEROL HCL NEB 1.25 MG/3 ML AMPUL NEB SCH ×4 (00:01→23:54)
[2019-04-18] MEDS: IPRATROPIUM BROMIDE 0.02% NEB 0.5 MG/2.5 ML AMPUL NEB SCH ×4 (00:01→23:54)
[2019-04-18] MEDS: HEPARIN SOD (PORCINE) 5,000 UNIT/ML 1 ML VIAL SUBCUT SCH ×4 (05:56→22:34)
[2019-04-18] MEDS: ALPRAZOLAM 0.5 MG TABLET PO SCH ×2 (05:59→22:35)
[2019-04-18] MEDS: OXYCODONE HCL IR 5 MG TABLET PO PRN ×4 (05:59→19:52)
[2019-04-18] MEDS: PANTOPRAZOLE SODIUM 40 MG TABLET.DR PO SCH (06:00)
[2019-04-18 07:21] LABS: HEMATOCRIT 39.3 % (36.0-47.0); HEMOGLOBIN 13.4 g/dL (12.0-15.5); MEAN CORPUSCULAR HEMOGLOBIN 30.7 pg (27.0-33.4); MEAN CORPUSCULAR VOLUME 90 fl (80-97); PLATELET COUNT 165 10^3/uL (150-450); RED BLOOD COUNT 4.35 10^6/uL (3.72-5.28); RED CELL DISTRIBUTION WIDTH 13.6 % (11.5-14.0)
[2019-04-18 07:55] LABS: BLOOD UREA NITROGEN 11 mg/dL (7-20); CALCIUM 8.7 mg/dL (8.4-10.2); GLUCOSE 101 mg/dL (75-110); POTASSIUM 4.3 mmol/L (3.6-5.0)
[2019-04-18 08:01] LABS: CARBON DIOXIDE 35 mmol/L (22-30); CHLORIDE 97 mmol/L (98-107)
[2019-04-18 08:07] LABS: ANION GAP 4 (5-19)
[2019-04-18] MEDS: ONDANSETRON HCL INJ/PF 4 MG/2 ML SDV IV PRN ×3 (08:15→17:43)
[2019-04-18] MEDS: DESVENLAFAXINE PO SCH (08:15)
--- NOTE | 2019-04-18 08:31 | PDOC PROGRESS REPORT ---
Subjective Progress Note for:: 04/18/19 Subjective:: 04/17/2019-no complaints this a.m. sitting up in the bed no signs of acute distress 04/18/2019-inability to sleep Reason For Visit: ACUTE RESPIRATORY FAILURE WITH HYPOXIA/HYPERCAPNIA Physical Exam Vital Signs: Temp Pulse Resp BP Pulse Ox 98.2 F 86 10 L 99/57 L 91 L 04/18/19 00:38 04/18/19 00:38 04/18/19 00:38 04/18/19 00:38 04/18/19 00:38 Intake & Output 04/17/19 04/18/19 04/19/19 06:59 06:59 06:59 Intake Total 440 1205 Balance 440 1205 Weight 58.2 kg 59.8 kg General appearance: PRESENT: no acute distress, well-developed, well-nourished Neck exam: ABSENT: carotid bruit, JVD, lymphadenopathy, thyromegaly Respiratory exam: PRESENT: clear to auscultation wally. ABSENT: rales, rhonchi, wheezes Cardiovascular exam: PRESENT: RRR. ABSENT: diastolic murmur, rubs, systolic murmur Pulses: PRESENT: normal dorsalis pedis pul Vascular exam: PRESENT: normal capillary refill GI/Abdominal exam: PRESENT: normal bowel sounds, soft. ABSENT: distended, guarding, mass, organolmegaly, rebound, tenderness Extremities exam: PRESENT: full ROM. ABSENT: calf tenderness, clubbing, pedal edema Neurological exam: PRESENT: alert, awake, oriented to person, oriented to place, oriented to time, oriented to situation, CN II-XII grossly intact. ABSENT: motor sensory deficit Psychiatric exam: PRESENT: appropriate affect, normal mood. ABSENT: homicidal ideation, suicidal ideation Skin exam: PRESENT: dry, intact, warm. ABSENT: cyanosis, rash Results Laboratory Results: 04/18/19 06:59 04/18/19 06:59 04/18/19 04/18/19 06:59 06:59 WBC 7.0 RBC 4.35 Hgb 13.4 Hct 39.3 MCV 90 MCH 30.7 MCHC 34.0 RDW 13.6 Plt Count 165 Sodium 135.9 L Potassium 4.3 Chloride 97 L Carbon Dioxide 35 H Anion Gap 4 L BUN 11 Creatinine 0.34 L Est GFR ( Amer) > 60 Glucose 101 Calcium 8.7 Magnesium 2.0 04/16/19 04/16/19 04/16/19 17:22 17:22 23:50 Creatine Kinase 55 37 CK-MB (CK-2) 1.20 Troponin I < 0.012 04/16/19 04/17/19 04/17/19 23:50 05:42 05:42 Creatine Kinase 36 CK-MB (CK-2) 0.99 0.87 Troponin I < 0.012 < 0.012 04/17/19 04/17/19 12:25 12:25 Creatine Kinase 46 CK-MB (CK-2) 0.61 Troponin I < 0.012 Impressions: Cervical Spine CT 04/16/19 00:00 IMPRESSION: 1. No acute fracture or subluxation of the cervical spine. 2. Degenerative change of the cervical spine with anterior fusion at C5-C7 This exam was performed according to our departmental dose-optimization program, which includes automated exposure control, adjustment of the mA and/or kV according to patient size and/or use of iterative reconstruction technique. Head CT 04/16/19 00:00 IMPRESSION: 1. No acute intracranial abnormality identified. This exam was performed according to our departmental dose-optimization program, which includes automated exposure control, adjustment of the mA and/or kV according to patient size and/or use of iterative reconstruction technique. Chest X-Ray 04/16/19 16:45 IMPRESSION: Small bilateral pleural effusions. Emphysema. Assessment and Plan - Plan Summary Summary: Patient is admitted to the IMCU unit and will be monitored closely throughout her hospital stay. She will be treated with BiPAP adjusted to provide adequate oxygenation and to eliminate her hypercapnia. ABGs will be obtained as needed. She will be treated with a standard COPD pulmonary toilet utilizing Xopenex, Atrovent and Pulmicort nebulizers. Her mental/neurologic status will be reassessed frequently with neuro checks. A trial dose of Narcan 0.4 mg IV x1 will be considered if patient does not show improvement. She will be continued on her usual oral medications as appropriate when she regains full respon siveness and mental clarity. 04/17/2019- acute respiratory failure with hypoxia and hypercapnia-improved at this time. Patient did wear BiPAP overnight we will continue BiPAP while asleep. Patient sitting up in bed at this time wearing nasal cannula able speak in full sentences lungs are diminished throughout no adventitious breath sounds. Continue bronchodilators steroids and other supportive measures. Acute delirium-most likely secondary to hypercapnia. Patient's mentality is with in her normal range this morning. COPD exacerbation-improved continue bronchodilators steroids and other modalities. Crohn's disease in remission-stable continue to follow Chronic pain syndrome-stable continue to follow Opioid dependence in a controlled environment-stable 04/18/2019 -acute respiratory failure with hypoxia and hypercapnia-continue show improvement. Patient continues to wear BiPAP at night. Patient sitting up in bed at this time with nasal cannula. Continue supportive measures. Acute delirium-was most likely secondary to hypercapnia resolved at this time continue to follow COPD exacerbation-continue bronchodilator steroids and other supportive measures Crohn's disease-stable continue to follow Chronic pain syndrome-stable continue to follow Opiate dependence in a controlled environment stable Sleep apnea-patient states overnight she is having problems sleeping this is been going on for quite a while. Patient states that she awakens multiple times overnight. This could be sleep apnea will have patient obtain an outpatient sleep study. - Time Time Spent with patient: 15-24 minutes - Inpatient Certification Based on my medical assessment, after consideration of the patient's comorbidities, presenting symptoms, or acuity I expect that the services needed warrant INPATIENT care.: Yes I certify that my determination is in accordance with my understanding of Medicare's requirements for reasonable and necessary INPATIENT services [42 CFR 412.3e].: Yes Medical Necessity: Other - Respiratory support
[2019-04-18] MEDS: BUDESONIDE NEB 0.5 MG/2 ML AMPUL NEB SCH ×2 (08:40→19:58)
[2019-04-18] MEDS: ALPRAZOLAM 0.5 MG TABLET PO PRN (10:30)
[2019-04-18] MEDS: DOCUSATE SODIUM 100 MG CAPSULE PO SCH ×2 (10:30→17:33)
[2019-04-18] MEDS: NICOTINE 14 MG/24 HR PATCH.TD24 TD SCH (10:30)
[2019-04-18] MEDS: MELOXICAM 7.5 MG TABLET PO SCH (10:30)
[2019-04-18] MEDS: HYDROMORPHONE HCL INJ/PF 2 MG/ML AMPULE IV PRN ×3 (14:12→22:34)
[2019-04-18] MEDS: NORMAL SALINE 1000 ML 1,000 ML IV PRN (17:43)
[2019-04-18] MEDS ORDERED: INFLUENZA QUAD (6MOS+) 2019-20 VAC 0.5 ML SYR IM ONE (18:00)
[2019-04-18] MEDS: LEVALBUTEROL HCL NEB 0.63 MG/3 ML AMPUL NEB PRN (19:58)
[2019-04-19] MEDS: OXYCODONE HCL IR 5 MG TABLET PO PRN ×4 (00:12→15:02)
[2019-04-19] MEDS: HYDROMORPHONE HCL INJ/PF 2 MG/ML AMPULE IV PRN ×4 (03:28→14:29)
[2019-04-19] MEDS: NORMAL SALINE 1000 ML 1,000 ML IV PRN ×3 (05:29→07:52)
[2019-04-19 06:12] LABS: HEMATOCRIT 37.9 % (36.0-47.0); HEMOGLOBIN 12.7 g/dL (12.0-15.5); MEAN CORPUSCULAR HEMOGLOBIN 30.4 pg (27.0-33.4); MEAN CORPUSCULAR HGB CONC 33.4 g/dL (32.0-36.0); MEAN CORPUSCULAR VOLUME 91 fl (80-97); PLATELET COUNT 162 10^3/uL (150-450); RED BLOOD COUNT 4.16 10^6/uL (3.72-5.28); RED CELL DISTRIBUTION WIDTH 13.6 % (11.5-14.0); WHITE BLOOD COUNT 7.6 10^3/uL (4.0-10.5)
[2019-04-19 06:26] LABS: BLOOD UREA NITROGEN 10 mg/dL (7-20); CALCIUM 8.2 mg/dL (8.4-10.2); CHLORIDE 102 mmol/L (98-107); GLUCOSE 93 mg/dL (75-110); POTASSIUM 4.3 mmol/L (3.6-5.0)
[2019-04-19 06:32] LABS: CARBON DIOXIDE 33 mmol/L (22-30)
[2019-04-19] MEDS: HEPARIN SOD (PORCINE) 5,000 UNIT/ML 1 ML VIAL SUBCUT SCH ×2 (06:36→13:25)
[2019-04-19] MEDS: PANTOPRAZOLE SODIUM 40 MG TABLET.DR PO SCH (06:36)
[2019-04-19 06:49] LABS: ANION GAP 3 (5-19)
[2019-04-19] MEDS: ONDANSETRON HCL INJ/PF 4 MG/2 ML SDV IV PRN (07:52)
[2019-04-19] MEDS: DESVENLAFAXINE PO SCH (07:52)
[2019-04-19] MEDS: LEVALBUTEROL HCL NEB 1.25 MG/3 ML AMPUL NEB SCH (08:09)
[2019-04-19] MEDS: IPRATROPIUM BROMIDE 0.02% NEB 0.5 MG/2.5 ML AMPUL NEB SCH (08:09)
[2019-04-19] MEDS: BUDESONIDE NEB 0.5 MG/2 ML AMPUL NEB SCH (08:09)
[2019-04-19] MEDS: ALPRAZOLAM 0.5 MG TABLET PO PRN (09:44)
[2019-04-19] MEDS: NICOTINE 14 MG/24 HR PATCH.TD24 TD SCH (09:44)
[2019-04-19] MEDS: MELOXICAM 7.5 MG TABLET PO SCH (09:44)
[2019-04-19] MEDS: DOCUSATE SODIUM 100 MG CAPSULE PO SCH (09:44)
[2019-04-19 15:12] VITALS: BP 85/65
--- NOTE | 2019-04-21 09:52 | PDOC DISCHARGE SUMMARY ---
Impression - Admit/DC Date/PCP Admission Date/Primary Care Provider: 04/16/19 20:45 Discharge Date: 04/19/19 - Discharge Diagnosis (1) Acute respiratory failure with hypoxia and hypercapnia Is this a current diagnosis for this admission?: Yes (2) Acute delirium Is this a current diagnosis for this admission?: Yes (3) COPD (chronic obstructive pulmonary disease) Is this a current diagnosis for this admission?: Yes (4) Chronic pain syndrome Is this a current diagnosis for this admission?: Yes (5) Crohn's disease in remission Is this a current diagnosis for this admission?: Yes (6) Opioid dependence in controlled environment Is this a current diagnosis for this admission?: Yes - Additional Information Resuscitation Status: Full Code Discharge Diet: As Tolerated Discharge Activity: Activity As Tolerated Referrals: LINK CHRISTY NP [NURSE PRACTITIONER] - 04/25/19 2:30 pm NICOLÁS CERDA MD [ACTIVE STAFF] - 04/28/19 1:30 pm (left a message to call us with appointment date) Home Medications: Albuterol Sulfate [Proair HFA Inhalation Aerosol 8.5 gm MDI] 2 puff IH Q6HP PRN 04/17/19 Alprazolam [Xanax] 0.5 mg PO DAILYP PRN 04/17/19 Alprazolam [Xanax] 2 mg PO QHS 04/17/19 Cholestyramine (with Sugar) [Cholestyramine Packet] 4 gm PO DAILY 04/17/19 Cyclobenzaprine HCl [Flexeril 10 mg Tablet] 10 mg PO Q8HP PRN 04/17/19 Desvenlafaxine [Desvenlafaxine ER] 100 mg PO DAILY 04/17/19 Fluconazole [Diflucan] 150 mg PO DAILYP PRN 04/17/19 Fluticasone/Salmeterol [Advair 250-50 Diskus 14 Dose/Diskus] 1 puff IH Q12 04/17/19 Furosemide [Lasix 40 mg Tablet] 40 mg PO DAILY 04/17/19 Gabapentin [Neurontin 100 mg Capsule] 100 mg PO Q8HP PRN 04/17/19 Methocarbamol [Robaxin 750 mg Tablet] 750 mg PO Q8HP PRN 04/17/19 Oxycodone HCl [Oxycodone HCl 10 MG Tablet] 10 mg PO Q4HP PRN 04/17/19 Pantoprazole Sodium 40 mg PO ACBRKFST 04/17/19 Promethazine HCl [Phenergan 25 mg Tablet] 25 mg PO Q8HP PRN 04/17/19 Tiotropium Pala [Spiriva Handihaler 5 Cap/Kit (18 Mcg/Cap)] 1 puff IH DAILY 04/17/19 History of Present Illiness History of Present Illness: Patient is admitted to the IMCU unit and will be monitored closely throughout her hospital stay. She will be treated with BiPAP adjusted to provide adequate oxygenation and to eliminate her hypercapnia. ABGs will be obtained as needed. She will be treated with a standard COPD pulmonary toilet utilizing Xopenex, Atrovent and Pulmicort nebulizers. Her mental/neurologic status will be reassessed frequently with neuro checks. A trial dose of Narcan 0.4 mg IV x1 will be considered if patient does not show improvement. She will be continued on her usual oral medications as appropriate when she regains full responsiveness and mental clarity. Hospital Course Hospital Course: 04/17/2019- acute respiratory failure with hypoxia and hypercapnia-improved at this time. Patient did wear BiPAP overnight we will continue BiPAP while asleep. Patient sitting up in bed at this time wearing nasal cannula able speak in full sentences lungs are diminished throughout no adventitious breath sounds. Continue bronchodilators steroids and other supportive measures. Acute delirium-most likely secondary to hypercapnia. Patient's mentality is with in her normal range this morning. COPD exacerbation-improved continue bronchodilators steroids and other modalities. Crohn's disease in remission-stable continue to follow Chronic pain syndrome-stable continue to follow Opioid dependence in a controlled environment-stable 04/18/2019 -acute respiratory failure with hypoxia and hypercapnia-continue show improvemen t. Patient continues to wear BiPAP at night. Patient sitting up in bed at this time with nasal cannula. Continue supportive measures. Acute delirium-was most likely secondary to hypercapnia resolved at this time continue to follow COPD exacerbation-continue bronchodilator steroids and other supportive measures Crohn's disease-stable continue to follow Chronic pain syndrome-stable continue to follow Opiate dependence in a controlled environment stable Sleep apnea-patient states overnight she is having problems sleeping this is been going on for quite a while. Patient states that she awakens multiple times overnight. This could be sleep apnea will have patient obtain an outpatient sleep study. 04/19/2019 1. Acute respiratory failure with hypoxia and hypercapnia- Significant impr ovement, still requires oxygen. Was discharged home on oxygen. Supplies provided and follow up with PCP scheduled. 2. Acute delirium-was most likely secondary to hypercapnia resolved at this time continue to follow 3. COPD exacerbation-Was started on bronchodilator , bipap and supplemental o2. was discharged on LABA, LAMA and ICSs. Schedulled to follow up with Dr Cerda as out patient. 4. Crohn's disease-In remission. Outpatient pcp and gastroenterology follow up. 5. Chronic pain syndrome-Was restarted on opiods. Sees pain specialist as out patient. Follow with pain specialist. 6. Sleep apnea. Noctural bibap. Follow up appointment was made with Dr Cerda for nocturnal polysomnography and possible home BiPap/CPAP. Physical Exam Vital Signs: Temp Pulse Resp BP Pulse Ox 98.0 F 63 16 85/65 L 91 L 04/19/19 15:11 04/19/19 15:11 04/19/19 15:11 04/19/19 15:11 04/19/19 15:11 Intake & Output 04/20/19 04/21/19 04/22/19 06:59 06:59 06:59 Intake Total 505 Balance 505 General appearance: PRESENT: no acute distress, well-developed, well-nourished Mouth exam: PRESENT: moist, tongue midline Neck exam: ABSENT: carotid bruit, JVD, lymphadenopathy, thyromegaly Respiratory exam: PRESENT: clear to auscultation wally. ABSENT: rales, rhonchi, wheezes Cardiovascular exam: PRESENT: RRR. ABSENT: diastolic murmur, rubs, systolic murmur Pulses: PRESENT: normal dorsalis pedis pul GI/Abdominal exam: PRESENT: normal bowel sounds, soft. ABSENT: distended, guarding, mass, organolmegaly, rebound, tenderness Extremities exam: PRESENT: full ROM. ABSENT: calf tenderness, clubbing, pedal edema Neurological exam: PRESENT: alert, awake, oriented to person, oriented to place, oriented to time, oriented to situation, CN II-XII grossly intact. ABSENT: motor sensory deficit Results Laboratory Results: WBC 7.6 10^3/uL (4.0-10.5) 04/19/19 05:47 RBC 4.16 10^6/uL (3.72-5.28) 04/19/19 05:47 Hgb 12.7 g/dL (12.0-15.5) 04/19/19 05:47 Hct 37.9 % (36.0-47.0) 04/19/19 05:47 MCV 91 fl (80-97) 04/19/19 05:47 MCH 30.4 pg (27.0-33.4) 04/19/19 05:47 MCHC 33.4 g/dL (32.0-36.0) 04/19/19 05:47 RDW 13.6 % (11.5-14.0) 04/19/19 05:47 Plt Count 162 10^3/uL (150-450) 04/19/19 05:47 Lymph % (Auto) 32.6 % (13-45) 04/16/19 18:35 [place] % (Auto) 8.5 % (3-13) 04/16/19 18:35 Eos % (Auto) 1.5 % (0-6) 04/16/19 18:35 Baso % (Auto) 0.5 % (0-2) 04/16/19 18:35 Absolute Neuts (auto) 5.9 10^3/uL (1.7-8.2) 04/16/19 18:35 Absolute Lymphs (auto) 3.4 10^3/uL (0.5-4.7) 04/16/19 18:35 Absolute Monos (auto) 0.9 10^3/uL (0.1-1.4) 04/16/19 18:35 Absolute Eos (auto) 0.2 10^3/uL (0.0-0.6) 04/16/19 18:35 Absolute Basos (auto) 0.0 10^3/uL (0.0-0.2) 04/16/19 18:35 Seg Neutrophils % 56.9 % (42-78) 04/16/19 18:35 Platelet Estimate Cancelled 04/16/19 17:22 PT 14.0 SEC (11.4-15.4) 04/16/19 18:35 INR 1.07 04/16/19 18:35 INR (Anticoag Therapy) Cancelled 04/16/19 17:22 APTT 29.4 SEC (23.5-35.8) 04/16/19 18:35 Carbonic Acid 1.90 mmol/L (1.05-1.35) H 04/16/19 19:01 HCO3/H2CO3 Ratio 16:1 04/16/19 19:01 ABG pH 7.32 (7.35-7.45) L 04/16/19 19:01 ABG pCO2 63.0 mmHg (35-45) H 04/16/19 19:01 ABG pO2 51.8 mmHg (80-100) L 04/16/19 19:01 ABG HCO3 31.7 mmol/L (20-24) H 04/16/19 19:01 ABG Total CO2 33.7 mmol/L (21-25) H 04/16/19 19:01 ABG O2 Saturation 82.9 % (94-98) L 04/16/19 19:01 ABG Base Excess 3.7 mmol/L 04/16/19 19:01 FiO2 ROOM AIR 04/16/19 19:01 Sodium 138.2 mmol/L (137-145) 04/19/19 05:47 Potassium 4.3 mmol/L (3.6-5.0) 04/19/19 05:47 Chloride 102 mmol/L (98-107) 04/19/19 05:47 Carbon Dioxide 33 mmol/L (22-30) H 04/19/19 05:47 Anion Gap 3 (5-19) L 04/19/19 05:47 BUN 10 mg/dL (7-20) 04/19/19 05:47 Creatinine 0.36 mg/dL (0.52-1.25) L 04/19/19 05:47 Est GFR ( Amer) > 60 (>60) 04/19/19 05:47 Est GFR (MDRD) Non-Af > 60 (>60) 04/19/19 05:47 Glucose 93 mg/dL (75-110) 04/19/19 05:47 POC Glucose 96 mg/dL (70-110) 04/16/19 23:15 Calcium 8.2 mg/dL (8.4-10.2) L 04/19/19 05:47 Magnesium 2.0 mg/dL (1.6-2.3) 04/19/19 05:47 Total Bilirubin 0.5 mg/dL (0.2-1.3) 04/16/19 17:22 Direct Bilirubin 0.3 mg/dL (0.0-0.4) 04/16/19 17:22 Neonat Total Bilirubin Not Reportable 04/16/19 17:22 Neonat Direct Bilirubin Not Reportable 04/16/19 17:22 Neonat Indirect Bili Not Reportable 04/16/19 17:22 AST 42 U/L (14-36) H 04/16/19 17:22 ALT 19 U/L (<35) 04/16/19 17:22 Alkaline Phosphatase 76 U/L (38-126) 04/16/19 17:22 Ammonia 25.5 umol/L (9-33) 04/16/19 17:22 Creatine Kinase 46 U/L (30-135) 04/17/19 12:25 CK-MB (CK-2) 0.61 ng/mL (<4.55) 04/17/19 12:25 Troponin I < 0.012 ng/mL 04/17/19 12:25 Total Protein 7.9 g/dL (6.3-8.2) 04/16/19 17:22 Albumin 4.3 g/dL (3.5-5.0) 04/16/19 17:22 TSH 1.06 uIU/mL (0.47-4.68) 04/16/19 23:50 Free T4 1.23 ng/dL (0.78-2.19) 04/16/19 23:50 Free T3 pg/mL 3.56 pg/mL (2.77-5.27) 04/16/19 23:50 Urine Color DARK YELLOW 04/16/19 20:40 Urine Appearance SLIGHTLY-CLOUDY 04/16/19 20:40 Urine pH 5.0 (5.0-9.0) 04/16/19 20:40 Ur Specific [place] 1.026 04/16/19 20:40 Urine Protein NEGATIVE mg/dL (NEGATIVE) 04/16/19 20:40 Urine Glucose (UA) NEGATIVE mg/dL (NEGATIVE) 04/16/19 20:40 Urine Ketones TRACE mg/dL (NEGATIVE) H 04/16/19 20:40 Urine Blood NEGATIVE (NEGATIVE) 04/16/19 20:40 Urine Nitrite NEGATIVE (NEGATIVE) 04/16/19 20:40 Urine Bilirubin NEGATIVE (NEGATIVE) 04/16/19 20:40 Urine Urobilinogen 2.0 mg/dL (<2.0) H 04/16/19 20:40 Ur Leukocyte Esterase NEGATIVE (NEGATIVE) 04/16/19 20:40 Urine WBC (Auto) 1 /HPF 04/16/19 20:40 Urine RBC (Auto) 2 /HPF 04/16/19 20:40 U Hyaline Cast (Auto) 1 /LPF 04/16/19 20:40 Calcium Oxalate Cr Auto FEW /HPF 04/16/19 20:40 Urine Mucus (Auto) RARE /LPF 04/16/19 20:40 Urine Ascorbic Acid 40 (NEGATIVE) H 04/16/19 20:40 Urine Opiates Screen UNCONFIRMED POSITIVE 04/16/19 20:40 Urine Methadone Screen NEGATIVE 04/16/19 20:40 Ur Barbiturates Screen NEGATIVE 04/16/19 20:40 Ur Phencyclidine Scrn NEGATIVE 04/16/19 20:40 Ur Amphetamines Screen NEGATIVE 04/16/19 20:40 U Benzodiazepines Scrn UNCONFIRMED POSITIVE 04/16/19 20:40 Urine Cocaine Screen NEGATIVE 04/16/19 20:40 U Marijuana (THC) Screen NEGATIVE 04/16/19 20:40 Serum Alcohol < 10 mg/dL (NONE DETECTED) 04/16/19 17:22 Slides for Path Review Cancelled 04/16/19 17:22 04/16/19 04/16/19 04/17/19 17:22 23:50 05:42 CK-MB (CK-2) 1.20 0.99 0.87 Troponin I < 0.012 < 0.012 < 0.012 04/17/19 12:25 CK-MB (CK-2) 0.61 Troponin I < 0.012 Impressions: Cervical Spine CT 04/16/19 00:00 IMPRESSION: 1. No acute fracture or subluxation of the cervical spine. 2. Degenerative change of the cervical spine with anterior fusion at C5-C7 This exam was performed according to our departmental dose-optimization program, which includes automated exposure control, adjustment of the mA and/or kV according to patient size and/or use of iterative reconstruction technique. Head CT 04/16/19 00:00 IMPRESSION: 1. No acute intracranial abnormality identified. This exam was performed according to our departmental dose-optimization program, which includes automated exposure control, adjustment of the mA and/or kV according to patient size and/or use of iterative reconstruction technique. Chest X-Ray 04/16/19 16:45 IMPRESSION: Small bilateral pleural effusions. Emphysema. Stroke Is this a Stroke Patient?: No Acute Heart Failure - Is this a Heart Failure Patient?: No
== END 2019-04-19 15:25 | disposition home or self-care (01) | DRG 189 ==
LOC: ER 16:22 → EH 20:45 → 3W 22:55
PROVIDERS: ADMIT Emergency Medicine; ATTEND Emergency Medicine
PROC: 5A09457 Assistance with Respiratory Ventilation, 24-96 Consecutive Hours, Continuous Positive Airway Pressure (ICD-10-PCS; principal; 2019-04-16)
PROC: 3E02340 Introduction of Influenza Vaccine into Muscle, Percutaneous Approach (ICD-10-PCS; 2019-04-19)
DX: J96.01 Acute respiratory failure with hypoxia (principal); K50.10 Crohn's disease of large intestine without complications; J44.1 Chronic obstructive pulmonary disease with (acute) exacerbation; J96.02 Acute respiratory failure with hypercapnia; G89.4 Chronic pain syndrome; E66.9 Obesity, unspecified; R47.81 Slurred speech; R41.0 Disorientation, unspecified; Z60.2 Problems related to living alone; Z79.891 Long term (current) use of opiate analgesic; Z23 Encounter for immunization; Z79.899 Other long term (current) drug therapy; Z91.19 Patient's noncompliance with other medical treatment and regimen; Z90.49 Acquired absence of other specified parts of digestive tract; Z88.0 Allergy status to penicillin; Z98.84 Bariatric surgery status; Z87.891 Personal history of nicotine dependence
CPT/HCPCS: 36415; 70450; 71046; 72125; 80048; 80053; 80307; 81001; 82140; 82550; 82553; 82803; 82962; 83735; 84439; 84443; 84481; 84484; 85025; 85027; 85610; 85730; 90686; 93005; 93010; 94640; 94660; 99285; J1170; J1644; J2405; J3420; J3490; J7030; J7614; S0028

== ENCOUNTER → 2019-05-03 | Outpatient (CLI) | payer MEDICARE ==
[2019-05-03 15:50] LABS: ABSOLUTE EOSINOPHILS # (AUTO) 0.1 10^3/uL (0.0-0.6); ABSOLUTE LYMPHOCYTES (AUTO) 2.9 10^3/uL (0.5-4.7); ABSOLUTE MONOCYTES (AUTO) 0.7 10^3/uL (0.1-1.4); ABSOLUTE NEUT (AUTO) 7.9 10^3/uL (1.7-8.2); BASOPHILS % (AUTO) 0.2 % (0-2); EOSINOPHILS % (AUTO) 0.8 % (0-6); HEMATOCRIT 47.7 % (36.0-47.0); HEMOGLOBIN 15.8 g/dL (12.0-15.5); LYMPHOCYTES % (AUTO) 25.2 % (13-45); MEAN CORPUSCULAR HEMOGLOBIN 30.1 pg (27.0-33.4); MEAN CORPUSCULAR HGB CONC 33.2 g/dL (32.0-36.0); MEAN CORPUSCULAR VOLUME 91 fl (80-97); MONOCYTES % (AUTO) 6.3 % (3-13); PLATELET COUNT 213 10^3/uL (150-450); RED BLOOD COUNT 5.27 10^6/uL (3.72-5.28); RED CELL DISTRIBUTION WIDTH 13.9 % (11.5-14.0); SEGMENTED NEUTROPHILS % (AUTO) 67.5 % (42-78); TOTAL CELLS COUNTED % (AUTO) 100 %; WHITE BLOOD COUNT 11.7 10^3/uL (4.0-10.5)
--- NOTE | 2019-05-03 16:55 | RADIOLOGY REPORT (SQ) ---
EXAM DESCRIPTION: L SPINE W/FLEX/EXT COMPLETED DATE/TIME: 05/03/2019 3:16 pm REASON FOR STUDY: M43.16 SPONDYLOLISTHESIS, LUMBAR REGION M43.16 SPONDYLOLISTHESIS, LUMBAR REGION COMPARISON: None. NUMBER OF VIEWS: 6 views TECHNIQUE: AP, lateral, and oblique views were obtained. Additional lateral views were obtained in flexion and extension. LIMITATIONS: None. FINDINGS: MINERALIZATION: Normal. SEGMENTATION: Normal. No transitional anatomy. ALIGNMENT: Mild rotatory levoscoliosis. FLEXION/EXTENSION: No instability. VERTEBRAE: Maintained height. No fracture or worrisome bone lesion. DISCS: Disc spaces are narrowed from L3-S1. Small marginal osteophytes are seen. POSTERIOR ELEMENTS: Hypertrophic facet changes from L3-S1. HARDWARE: None in the spine. OTHER: No other significant finding. IMPRESSION: Mild scoliosis. Degenerative disc disease, spondylosis, and facet arthropathy. No instability on flexion/ extension. TECHNICAL DOCUMENTATION: JOB ID: [id number] [employer]- All Rights Reserved Reading location - IP/workstation name: [email or web address]
== END ==
LOC: LAB 14:55
PROVIDERS: ATTEND Pain Medicine Pain Medicine
DX: M43.16 Spondylolisthesis, lumbar region (principal); M51.37 Other intervertebral disc degeneration, lumbosacral region; J30.89 Other allergic rhinitis
CPT/HCPCS: 36415; 72114; 85025; 86003

== ENCOUNTER → 2019-05-23 | Outpatient (CLI) | payer MEDICARE ==
--- NOTE | 2019-05-23 13:37 | RADIOLOGY REPORT (SQ) ---
EXAM DESCRIPTION: CT CHEST WITHOUT COMPLETED DATE/TIME: 05/23/2019 10:04 am REASON FOR STUDY: J44.9 CHRONIC OBSTRUCTIVE PULMONARY DISEASE, UNSPECIFIED J44.9 CHRONIC OBSTRUCTIV E PULMONARY DISEASE, UNSPECIFIED COMPARISON: 04/16/2019 TECHNIQUE: CT scan performed of the chest without intravenous contrast. Images reviewed with lung, soft tissue and bone windows. Reconstructed coronal and sagittal MPR images reviewed. All images st ored on PACS. All CT scanners at this facility use dose modulation, iterative reconstruction, and/or weight based d osing when appropriate to reduce radiation dose to as low as reasonably achievable (ALARA). [facility]: Dose Right [facility]: CareDose [facility]: Dose Right [facility]: Teradose 4D [facility]: [employer] RADIATION DOSE: CT Rad equipment meets quality standard of care and radiation dose reduction techniq ues were employed. CTDIvol: 3.0 mGy. DLP: 132 mGy-cm. mGy. LIMITATIONS: No technical limitations. FINDINGS: LUNGS AND PLEURA: Emphysematous change with centrilobular paraseptal emphysema. Hyperinfl ation. No pleural effusion, pneumothorax or focal consolidation. No discrete nodules or masses. HILAR AND MEDIASTINAL STRUCTURES: No identified masses or abnormal nodes. No obvious aneurysm. HEART AND VASCULAR STRUCTURES: No aneurysm. No pericardial effusion. UPPER ABDOMEN: Evidence of prior gastric bypass. Prior cholecystectomy. No acute findings. THYROID AND OTHER SOFT TISSUES: No masses. No adenopathy. BONES: No significant finding. HARDWARE: Partially visualized cervical fusion hardware. OTHER: No other significant findings. IMPRESSION: Emphysematous change without evidence of acute cardiopulmonary process. TECHNICAL DOCUMENTATION: JOB ID: [id number] Quality ID # [id number]: Final reports with documentation of one or more dose reduction techniques (e.g., Au tomated exposure control, adjustment of the mA and/or kV according to patient size, use of iterative reconstruction technique) 2010 [employer]- All Rights Reserved Reading location - IP/workstation name: [email or web address]
== END ==
LOC: RAD 09:51
PROVIDERS: ATTEND Registered Nurse
DX: J43.2 Centrilobular emphysema (principal)
CPT/HCPCS: 71250

== ENCOUNTER 2019-06-04 14:05 | Observation (INO) | payer MEDICARE ==
[2019-06-04] MEDS ORDERED: METHYLPREDNISOLONE INJ 125 MG/2 ML SDV IV ONE (14:23)
[2019-06-04] MEDS ORDERED: IPRATROPIUM/ALBUTEROL 0.5-2.5 MG/3 ML AMPUL NEB ONE (14:23)
[2019-06-04] MEDS ORDERED: MAGNESIUM SULFATE/D5W 1 GM/100 ML RTUPB IV ONE ×2 (14:23)
--- NOTE | 2019-06-04 14:27 | ER Document Report ---
ED Medical Screen (RME) - General Chief Complaint: Altered Mental Status Stated Complaint: BREATHING PROBLEMS,DIZZINESS Time Seen by Provider: 06/04/19 14:14 Primary Care Provider: BRAXTON LYLES FNP-C [Primary Care Provider] - Follow up as needed TRAVEL OUTSIDE OF THE [place] IN LAST 30 DAYS: No - HPI Notes: 06/04/19 14:24 Patient is a 54-year-old female with history of oxygen dependent COPD and chronic pain who presents with ex with concern of worsening breathing and altered mental status since 8pm last night. Ex- states that the altered mental status is primarily noted when she is speaking (i.e. 'not making sense') and not able to ambulate as she normally would. He states that this does happen when her oxygen gets low. She has been altered before and was admitted for COPD exacerbation altered mental status recently. No fever, chest pain, abdominal pain, nausea/vomiting. I have treated and performed a rapid initial assessment of this patient. A c omprehensive ED assessment and evaluation of the patient, analysis of test results and completion of medical decision making process will be conducted by additional ED providers. PHYSICAL EXAMINATION: GENERAL: Well-appearing, well-nourished and in no acute distress. Eyes: PERRLA, EOMI bilaterally Lungs: Diminished bilaterally with some expiratory wheezes noted. No retractions. Speaking in 2-3 word sentences. Affect: Poor eye contact, flat affect Neuro: Alert and oriented to person place, but not time. She believes it is 1919. She also states that the next holiday coming up is . GCS 15, cranial nerves otherwise grossly intact. - Related Data Allergies/Adverse Reactions: Penicillins Allergy (Verified 04/06/19 12:22) Home Medications: advair. spiriva. abuterol. questran. protonix. oxycodone. oxybutin. xanax Past Medical History - Social History Chew tobacco use (# tins/day): No Frequency of alcohol use: None Drug Abuse: None - Past Medical History Cardiac Medical History: Denies: Hx Coronary Artery Disease, Hx Hypertension Pulmonary Medical History: Reports: Hx COPD, Hx Pneumonia Neurological Medical History: Denies: Hx Seizures Endocrine Medical History: Denies: Hx Diabetes Mellitus Type 1, Hx Diabetes Mellitus Type 2, Hx Hyperthyroidism, Hx Hypothyroidism GI Medical History: Reports: Hx Crohn's Disease. Denies: Hx Cirrhosis, Hx Hepatitis, Hx Ulcerative Colitis Musculoskeltal Medical History: Denies Hx Arthritis, Denies Hx Gout Skin Medical History: Denies Hx Eczema, Denies Hx Psoriasis Infectious Medical History: Denies: Hx Hepatitis Past Surgical History: Reports: Hx Abdominal Surgery - gastric by-pass, Hx Cholecystectomy, Hx Gastric Bypass Surgery, Hx Herniorrhaphy - Multiple ventral hernia repairs, Hx Orthopedic Surgery - Cervical spine surgery (discectomies), Other - Colonoscopy, bowel perforation repair Physical Exam - Vital signs Vitals: Temp Pulse Resp BP Pulse Ox 97.8 F 83 16 133/81 H 87 L 06/04/19 14:13 06/04/19 14:13 06/04/19 14:13 06/04/19 14:13 06/04/19 14:13 Course - Vital Signs Vital signs: Temp Pulse Resp BP Pulse Ox 97.8 F 83 16 133/81 H 87 L 06/04/19 14:13 06/04/19 14:13 06/04/19 14:13 06/04/19 14:13 06/04/19 14:13 Doctor's Discharge - Discharge Referrals: BRAXTON LYLES FNP-C [Primary Care Provider] - Follow up as needed
[2019-06-04 15:31] LABS: VENOUS BLOOD BASE EXCESS 5.6 mmol/L; VENOUS BLOOD HCO3 34.1 mmol/L (20-32); VENOUS BLOOD PH 7.32 (7.30-7.42)
[2019-06-04 15:35] LABS: ABSOLUTE EOSINOPHILS # (AUTO) 0.1 10^3/uL (0.0-0.6); ABSOLUTE LYMPHOCYTES (AUTO) 2.3 10^3/uL (0.5-4.7); ABSOLUTE MONOCYTES (AUTO) 0.8 10^3/uL (0.1-1.4); ABSOLUTE NEUT (AUTO) 2.9 10^3/uL (1.7-8.2); BASOPHILS % (AUTO) 0.8 % (0-2); HEMATOCRIT 42.6 % (36.0-47.0); HEMOGLOBIN 14.3 g/dL (12.0-15.5); LYMPHOCYTES % (AUTO) 37.7 % (13-45); MEAN CORPUSCULAR HEMOGLOBIN 30.4 pg (27.0-33.4); MEAN CORPUSCULAR HGB CONC 33.7 g/dL (32.0-36.0); MEAN CORPUSCULAR VOLUME 90 fl (80-97); MONOCYTES % (AUTO) 12.6 % (3-13); PLATELET COUNT 182 10^3/uL (150-450); RED BLOOD COUNT 4.71 10^6/uL (3.72-5.28); RED CELL DISTRIBUTION WIDTH 13.8 % (11.5-14.0); SEGMENTED NEUTROPHILS % (AUTO) 46.9 % (42-78); TOTAL CELLS COUNTED % (AUTO) 100 %; WHITE BLOOD COUNT 6.2 10^3/uL (4.0-10.5)
[2019-06-04 15:36] LABS: VENOUS BLOOD PCO2 67.2 mmHg (35-63)
--- NOTE | 2019-06-04 15:38 | ER Document Report ---
ED General - General Chief Complaint: Altered Mental Status Stated Complaint: BREATHING PROBLEMS,DIZZINESS Time Seen by Provider: 06/04/19 14:14 Information source: Patient Notes: 54-year-old woman presents to the emergency department with a complaint of weakness, shortness of breath, cough and altered level of consciousness. Apparently her boyfriend, brought her to the emergency department due to altered level of consciousness. He notes that the patient had a similar episode in the past and admitted to the hospital in [place]. She is a smoker and is taking muscle relaxants and opiate pain medication. TRAVEL OUTSIDE OF THE [place] IN LAST 30 DAYS: No - Related Data Allergies/Adverse Reactions: Penicillins Allergy (Verified 04/06/19 12:22) Home Medications: advair. spiriva. abuterol. questran. protonix. oxycodone. oxybutin. xanax Past Medical History - General Information source: Emergency Med Personnel - Social History Smoking Status: Current Every Day Smoker Chew tobacco use (# tins/day): No Frequency of alcohol use: None Drug Abuse: None Family History: CAD - Mother and brother, COPD - Father, DM - Father Patient has suicidal ideation: No Patient has homicidal ideation: No - Past Medical History Cardiac Medical History: Denies: Hx Coronary Artery Disease, Hx Hypertension Pulmonary Medical History: Reports: Hx COPD, Hx Pneumonia Neurological Medical History: Denies: Hx Seizures Endocrine Medical History: Denies: Hx Diabetes Mellitus Type 1, Hx Diabetes Mellitus Type 2, Hx Hyperthyroidism, Hx Hypothyroidism GI Medical History: Reports: Hx Crohn's Disease. Denies: Hx Cirrhosis, Hx Hepatitis, Hx Ulcerative Colitis Musculoskeletal Medical History: Denies Hx Arthritis, Denies Hx Gout Skin Medical History: Denies Hx Eczema, Denies Hx Psoriasis Infectious Medical History: Denies: Hx Hepatitis Past Surgical History: Reports: Hx Abdominal Surgery - gastric by-pass, Hx Cholecystectomy, Hx Gastric Bypass Surgery, Hx Herniorrhaphy - Multiple ventral hernia repairs, Hx Orthopedic Surgery - Cervical spine surgery (discectomies), Other - Colonoscopy, bowel perforation repair Review of Systems - Review of Systems -: Yes ROS unobtainable due to patient's medical condition - Drowsy, unreliable history. Physical Exam - Vital signs Vitals: Pulse Resp BP Pulse Ox 72 11 L 135/68 H 93 06/04/19 14:06 06/04/19 14:06 06/04/19 14:06 06/04/19 14:06 - Notes Notes: Reviewed vital signs and nursing note as charted by RN. CONSTITUTIONAL: Drowsy, sleepy and mumbling at times incoherent HEAD: Normocephalic; atraumatic; No swelling EYES: PERRL; Conjunctivae clear, no drainage; EOMI ENT: Normal, pharynx without erythema or lesions, airway patent, mucous membranes pink and moist NECK: Supple, no cervical lymphadenopathy, no masses CARD: Regular rate and rhythm; no murmurs, no rubs, no gallops, capillary refill < 2 seconds, symmetric pulses RESP: Poor air movement, coarse breath sounds with wheezing, few upper airway rhonchi. ABD/GI: Normal bowel sounds; non-distended; soft, non-tender, no rebound, no guarding, no palpable organomegaly EXT: Normal ROM in all joints; non-tender to palpation; no effusions, no edema SKIN: Normal dry, warm, intact. NEURO: No facial asymmetry; Moves all extremities equally; Motor and sensory function intact, no focal findings. Course - Re-evaluation Re-evalutation: 06/04/19 18:11 Patient was noted to be hypercapnic on ABG, continues to be somnolent to the exam, BiPAP was started. I am admitting the patient to the hospital with hypercapnic respiratory failure. The hospitalist is contacted, and the patient will be admitted to the hospital for further evaluation and treatment. - Vital Signs Vital signs: Temp Pulse Resp BP Pulse Ox 98.2 F 83 16 98/56 L 97 06/05/19 11:45 06/05/19 11:45 06/05/19 11:45 06/05/19 11:45 06/05/19 11:45 - Laboratory Result Diagrams: 06/05/19 04:45 06/05/19 04:45 Laboratory results interpreted by me: 06/04/19 06/04/19 06/04/19 15:14 15:14 15:14 Carbonic Acid ABG pCO2 ABG pO2 ABG HCO3 ABG Total CO2 ABG O2 Saturation VBG pCO2 67.2 H* VBG HCO3 34.1 H Carbon Dioxide 31 H Salicylates < 1.0 L Acetaminophen < 10 L 06/04/19 16:10 Carbonic Acid 1.69 H ABG pCO2 56.3 H ABG pO2 118.8 H ABG HCO3 31.8 H ABG Total CO2 33.5 H ABG O2 Saturation 98.1 H VBG pCO2 VBG HCO3 Carbon Dioxide Salicylates Acetaminophen 06/04/19 18:15 I have reviewed laboratory data and used this information for the treatment decisions regarding the patient. - Diagnostic Test Radiology reviewed: Image reviewed, Reports reviewed - CT scan head: No acute intracranial process Chest x-ray: Eczematous changes, no infiltrate, no acute process. Critical Care Note - Critical Care Note Total time excluding time spent on procedures (mins): 60 - Critical care time spent obtaining history from patient or surrogate, discussions with consultants, development of treatment plan with patient or surrogate, evaluation of patient's response to treatment, examination of patient, ordering and performing treatments and interventions, ordering and review of laboratory studies, re- evaluation of patient's condition, ordering and review of radiographic studies and review of old charts Discharge - Discharge Clinical Impression: Hypercapnic respiratory failure Qualifiers: Chronicity: acute Qualified Code(s): J96.02 - Acute respiratory failure with hypercapnia Condition: Stable Disposition: ADMITTED INPATIENT Admitting Provider: Sushil (Hospitalist) Unit Admitted: [facility]
--- NOTE | 2019-06-04 15:43 | RADIOLOGY REPORT (SQ) ---
EXAM DESCRIPTION: CHEST SINGLE VIEW COMPLETED DATE/TIME: 06/04/2019 3:30 pm REASON FOR STUDY: SOB COMPARISON: 04/16/2019 EXAM PARAMETERS: NUMBER OF VIEWS: One view. TECHNIQUE: Single frontal radiographic view of the chest acquired. RADIATION DOSE: NA LIMITATIONS: None. FINDINGS: LUNGS AND PLEURA: Emphysema. No opacities, masses or pneumothorax. No pleural effusion. MEDIASTINUM AND HILAR STRUCTURES: No masses. Contour normal. HEART AND VASCULAR STRUCTURES: Heart normal in size. Normal vasculature. BONES: No acute findings. HARDWARE: None in the chest. OTHER: No other significant finding. IMPRESSION: Emphysema without acute abnormality of the lungs. TECHNICAL DOCUMENTATION: JOB ID: [id number] [employer]- All Rights Reserved Reading location - IP/workstation name: [email or web address]
[2019-06-04 15:48] LABS: ALBUMIN 3.9 g/dL (3.5-5.0); ALKALINE PHOSPHATASE 57 U/L (38-126); ANION GAP 8 (5-19); ASPARTATE AMINO TRANSFERASE 34 U/L (14-36); BILIRUBIN,DIRECT 0.2 mg/dL (0.0-0.4); BILIRUBIN,TOTAL 0.4 mg/dL (0.2-1.3); BLOOD UREA NITROGEN 12 mg/dL (7-20); CALCIUM 9.3 mg/dL (8.4-10.2); CARBON DIOXIDE 31 mmol/L (22-30); CHLORIDE 100 mmol/L (98-107); GLUCOSE 91 mg/dL (75-110); POTASSIUM 4.1 mmol/L (3.6-5.0); TOTAL PROTEIN 6.7 g/dL (6.3-8.2)
[2019-06-04 16:19] LABS: ARTERIAL BLOOD H2CO3 1.69 mmol/L (1.05-1.35); ARTERIAL BLOOD HCO3 31.8 mmol/L (20-24); ARTERIAL BLOOD O2 SATURATION 98.1 % (94-98); ARTERIAL BLOOD PCO2 56.3 mmHg (35-45); ARTERIAL BLOOD PH 7.37 (7.35-7.45); ARTERIAL BLOOD PO2 118.8 mmHg (80-100); ARTERIAL BLOOD TOTAL CO2 33.5 mmol/L (21-25)
[2019-06-04 16:20] LABS: ARTERIAL BLOOD FIO2 28%
--- NOTE | 2019-06-04 16:55 | RADIOLOGY REPORT (SQ) ---
EXAM DESCRIPTION: CT HEAD WITHOUT COMPLETED DATE/TIME: 06/04/2019 4:30 pm REASON FOR STUDY: AMS COMPARISON: 04/16/2019 TECHNIQUE: Axial images acquired through the brain without intravenous contrast. Images reviewed wi th bone, brain and subdural windows. Additional sagittal and coronal reconstructions were generated. Images stored on PACS. All CT scanners at this facility use dose modulation, iterative reconstruction, and/or weight based d osing when appropriate to reduce radiation dose to as low as reasonably achievable (ALARA). [facility]: Dose Right [facility]: CareDose [facility]: Dose Right [facility]: Teradose 4D [facility]: Smart Technologies RADIATION DOSE: CT Rad equipment meets quality standard of care and radiation dose reduction techniq ues were employed. CTDIvol: 53.2 mGy. DLP: 1044 mGy-cm. mGy. LIMITATIONS: None. FINDINGS: VENTRICLES: Normal size and contour. CEREBRUM: No masses. No hemorrhage. No midline shift. No evidence for acute infarction. Normal gra y/white matter differentiation. No areas of low density in the white matter. CEREBELLUM: No masses. No hemorrhage. No alteration of density. No evidence for acute infarction. EXTRAAXIAL SPACES: No fluid collections. No masses. ORBITS AND GLOBE: No intra- or extraconal masses. Normal contour of globe without masses. CALVARIUM: No fracture. PARANASAL SINUSES: No fluid or mucosal thickening. SOFT TISSUES: No mass or hematoma. OTHER: No other significant finding. IMPRESSION: No acute intracranial pathology. EVIDENCE OF ACUTE STROKE: NO. COMMENT: Quality ID # [id number]: Final reports with documentation of one or more dose reduction techniques (e.g., Automated exposure control, adjustment of the mA and/or kV according to patient size, use of iterative reconstruction technique) TECHNICAL DOCUMENTATION: JOB ID: [id number] [employer]- All Rights Reserved Reading location - IP/workstation name: [email or web address]
--- NOTE | 2019-06-04 17:16 | EKG REPORT ---
SEVERITY:- BORDERLINE ECG - SINUS RHYTHM BORDERLINE R WAVE PROGRESSION, ANTERIOR LEADS BORDERLINE PROLONGED QT INTERVAL : Confirmed by: Hunter Wilson MD 04-Jun-2019 17:16:26
[2019-06-04 18:22] LABS: ACETAMINOPHEN < 10 ug/mL (10-30); ALCOHOL < 10 mg/dL (NONE DETECTED); SALICYLATE < 1.0 mg/dL (2.0-20.0)
[2019-06-04] MEDS ORDERED: ACETAMINOPHEN 325 MG TABLET PO PRN (18:36)
[2019-06-04] MEDS ORDERED: ALBUTEROL SULFATE 0.083% NEB 2.5 MG/3 ML AMPUL NEB PRN (18:36)
[2019-06-04] MEDS ORDERED: ONDANSETRON HCL INJ/PF 4 MG/2 ML SDV IV PRN (18:42)
[2019-06-04] MEDS ORDERED: PROMETHAZINE HCL INJ 25 MG/1 ML VIAL IV PRN (18:42)
[2019-06-04] MEDS ORDERED: MAG HYDROX/AL HYDROX/SIMETH SUSP 30 ML UDCUP PO PRN (18:42)
[2019-06-04] MEDS ORDERED: MAGNESIUM HYDROXIDE SUSP 30 ML UDCUP PO PRN (18:42)
--- NOTE | 2019-06-04 18:59 | PDOC H&P ---
History of Present Illness Admission Date/PCP: OSMAN SÁNCHEZ Patient complains of: confusion History of Present Illness: BERTA DUMAS is a 54 year old female with a past medical history significant for hypertension, COPD, home O2 dependence, Crohn's disease, tobacco dependence with continuous use, and opiate dependent pain who presented to the emergency department today due to 24 hours of increased confusion, lethargy, and shortness of breath. The patient's roommate states that she has been acting funny for 1- 1/2 to 2 days. He denies known substance abuse, alcohol use, or excessive use of her pain medications, however, does state that he "does not keep track of her." He does report that the patient had a similar admission a few months ago ultimately determined to be related to pain medications in conjunction with a COPD exacerbation. Evaluation in the emergency department revealed hypotension, hypoxia on room air, unremarkable CBC chemistry. ABG demonstrated compensated respiratory acidosis. Head CT and chest x-ray are benign. EKG demonstrated sinus rhythm. The patient was provided nebulizer treatments and placed on BiPAP support with improved alertness. She is now arousable, oriented to self, place, situation, briefly conversational prior to falling back to sleep. She was referred to the hospitalist service for admission and management of the above-stated complaints and findings. Past Medical History Cardiac Medical History: Denies: Coronary Artery Disease, Hypertension Pulmonary Medical History: Reports: Chronic Obstructive Pulmonary Disease (COPD), Pneumonia, Respiratory Failure EENT Medical History: Reports: None Neurological Medical History: Denies: Ischemic CVA, Seizures Endocrine Medical History: Denies: Diabetes Mellitus Type 1, Diabetes Mellitus Type 2, Hyperthyroidism, Hypothyroidism Renal/ Medical History: Reports: None GI Medical History: Reports: Crohn's Disease Denies: Cirrhosis, Hepatitis, Ulcerative Colitis Musculoskeltal Medical History: Denies: Arthritis, Gout Skin Medical History: Denies: Eczema, Psoriasis Psychiatric Medical History: Reports: Tobacco Dependency Traumatic Medical History: Reports: None Hematology: Denies: Anemia, Bleeding Tendencies Infectious Medical History: Reports: None Past Surgical History Past Surgical History: Reports: Cholecystectomy, Gastric Bypass Surgery, Hernio rrhaphy - Multiple ventral hernia repairs, Orthopedic Surgery - Cervical spine surgery (discectomies), Other - Colonoscopy, bowel perforation repair Social History Information Source: Patient, Friend Lives with: Friend Smoking Status: Current Every Day Smoker Cigarettes Packs Per Day: 1 Electronic Cigarette use?: No Frequency of Alcohol Use: None Hx Recreational Drug Use: No Drugs: None Hx Prescription Drug Abuse: No - Advance Directive Resuscitation Status: Full Code Family History Family History: CAD - Mother and brother, COPD - Father, DM - Father Family History: Limited 2/2 mental status Parental Family History Reviewed: Yes Children Family History Reviewed: Unknown Sibling(s) Family History Reviewed.: Unknown Medication/Allergy Home Medications: Albuterol Sulfate [Proair HFA Inhalation Aerosol 8.5 gm MDI] 2 puff IH Q6HP PRN 04/17/19 Alprazolam [Xanax] 0.5 mg PO DAILYP PRN 04/17/19 Alprazolam [Xanax] 2 mg PO QHS 04/17/19 Cholestyramine (with Sugar) [Cholestyramine Packet] 4 gm PO DAILY 04/17/19 Cyclobenzaprine HCl [Flexeril 10 mg Tablet] 10 mg PO Q8HP PRN 04/17/19 Desvenlafaxine [Desvenlafaxine ER] 100 mg PO DAILY 04/17/19 Fluconazole [Diflucan] 150 mg PO DAILYP PRN 04/17/19 Fluticasone/Salmeterol [Advair 250-50 Diskus 14 Dose/Diskus] 1 puff IH Q12 04/17/19 Furosemide [Lasix 40 mg Tablet] 40 mg PO DAILY 04/17/19 Gabapentin [Neurontin 100 mg Capsule] 100 mg PO Q8HP PRN 04/17/19 Methocarbamol [Robaxin 750 mg Tablet] 750 mg PO Q8HP PRN 04/17/19 Oxycodone HCl [Oxycodone HCl 10 MG Tablet] 10 mg PO Q4HP PRN 04/17/19 Pantoprazole Sodium 40 mg PO ACBRKFST 04/17/19 Promethazine HCl [Phenergan 25 mg Tablet] 25 mg PO Q8HP PRN 04/17/19 Tiotropium [place] [Spiriva Handihaler 5 Cap/Kit (18 Mcg/Cap)] 1 puff IH DAILY 04/17/19 Allergies/Adverse Reactions: Penicillins Allergy (Verified 04/06/19 12:22) Review of Systems Constitutional: PRESENT: fever(s). ABSENT: chills, headache(s), weight gain, weight loss Eyes: ABSENT: visual disturbances Ears: ABSENT: hearing changes Cardiovascular: ABSENT: chest pain, dyspnea on exertion, edema, orthropnea, palp itations Respiratory: PRESENT: cough, dyspnea, sputum. ABSENT: hemoptysis Gastrointestinal: PRESENT: diarrhea. ABSENT: abdominal pain, constipation, hematemesis, hematochezia, nausea, vomiting Genitourinary: ABSENT: dysuria, hematuria Musculoskeletal: ABSENT: joint swelling Integumentary: ABSENT: rash, wounds Neurological: ABSENT: abnormal gait, abnormal speech, confusion, dizziness, focal weakness, syncope Psychiatric: ABSENT: anxiety, depression, homidical ideation, suicidal ideation Endocrine: ABSENT: cold intolerance, heat intolerance, polydipsia, polyuria Hematologic/Lymphatic: ABSENT: easy bleeding, easy bruising Physical Exam Vital Signs: Temp Pulse Resp BP Pulse Ox 98.6 F 83 12 125/79 94 06/04/19 17:00 06/04/19 14:13 06/04/19 17:00 06/04/19 17:00 06/04/19 17:00 Intake & Output 06/03/19 06/04/19 06/05/19 06:59 06:59 06:59 Weight 58.967 kg General appearance: PRESENT: no acute distress, disheveled, thin, well- developed, other - Appearing older than stated age Head exam: PRESENT: atraumatic, normocephalic Eye exam: PRESENT: conjunctiva pink, EOMI, PERRLA. ABSENT: scleral icterus Ear exam: PRESENT: normal external ear exam Mouth exam: PRESENT: moist, tongue midline Teeth exam: PRESENT: edentulous Respiratory exam: PRESENT: clear to auscultation wally, prolonged expiratory phas, symmetrical, unlabored, other - BiPAP support. ABSENT: rales, rhonchi, wheezes Cardiovascular exam: PRESENT: RRR, +S1, +S2. ABSENT: diastolic murmur, rubs, systolic murmur Vascular exam: PRESENT: normal capillary refill GI/Abdominal exam: PRESENT: normal bowel sounds, soft. ABSENT: distended, guarding, mass, organolmegaly, rebound, tenderness Rectal exam: PRESENT: deferred Extremities exam: PRESENT: full ROM. ABSENT: calf tenderness, clubbing, pedal edema Neurological exam: PRESENT: oriented to person, oriented to place, oriented to situation, CN II-XII grossly intact, other - Lethargic; wakes briefly to answer questions.. ABSENT: motor sensory deficit Skin exam: PRESENT: dry, intact, warm. ABSENT: cyanosis, rash Results Laboratory Results: 06/04/19 15:14 06/04/19 15:14 06/04/19 06/04/19 06/04/19 15:14 15:14 15:14 WBC 6.2 RBC 4.71 Hgb 14.3 Hct 42.6 MCV 90 MCH 30.4 MCHC 33.7 RDW 13.8 Plt Count 182 Seg Neutrophils % 46.9 Carbonic Acid HCO3/H2CO3 Ratio ABG pH ABG pCO2 ABG pO2 ABG HCO3 ABG O2 Saturation ABG Base Excess VBG pH 7.32 VBG pCO2 67.2 H* VBG HCO3 34.1 H VBG Base Excess 5.6 FiO2 Sodium 139.2 Potassium 4.1 Chloride 100 Carbon Dioxide 31 H Anion Gap 8 BUN 12 Creatinine 0.55 Est GFR ( Amer) > 60 Glucose 91 Calcium 9.3 Total Bilirubin 0.4 AST 34 Alkaline Phosphatase 57 Total Protein 6.7 Albumin 3.9 06/04/19 16:10 WBC RBC Hgb Hct MCV MCH MCHC RDW Plt Count Seg Neutrophils % Carbonic Acid 1.69 H HCO3/H2CO3 Ratio 18:1 ABG pH 7.37 ABG pCO2 56.3 H ABG pO2 118.8 H ABG HCO3 31.8 H ABG O2 Saturation 98.1 H ABG Base Excess 5.0 VBG pH VBG pCO2 VBG HCO3 VBG Base Excess FiO2 28% Sodium Potassium Chloride Carbon Dioxide Anion Gap BUN Creatinine Est GFR ( Amer) Glucose Calcium Total Bilirubin AST Alkaline Phosphatase Total Protein Albumin 06/04/19 15:14 Troponin I < 0.012 Impressions: Chest X-Ray 06/04/19 14:21 IMPRESSION: Emphysema without acute abnormality of the lungs. Assessment and Plan - Diagnosis (1) Acute respiratory failure with hypoxia and hypercapnia Is this a current diagnosis for this admission?: Yes Plan: The patient presented with decreased mental status and hypoxia on room air. ABG demonstrates compensated respiratory acidosis. She is admitted to [facility] on continuous cardiac telemetry. Supplemental oxygen and BiPAP as needed maintain saturations. Scheduled and as needed nebulizer treatments. Currently holding narcotics and benzodiazepines (2) Altered mental status Qualifiers: Altered mental status type: somnolence Qualified Code(s): R40.0 - Somnolence Is this a current diagnosis for this admission?: Yes Plan: Altered factorial secondary to initial hypoxia on presentation to the emergency department; likely secondary to benzodiazepine and narcotic medications. UDS is pending. Alcohol, aspirin, and Tylenol levels are negative. Supportive care. Fall precautions. Discharge planning is consulted. (3) COPD (chronic obstructive pulmonary disease) Qualifiers: COPD type: emphysema Emphysema type: centrilobular Qualified Code(s): J43.2 - Centrilobular emphysema Is this a current diagnosis for this admission?: Yes Plan: Chronic; stable. The patient has compensated respiratory acidosis. Lung sounds are clear. Do not believe the patient is an acute COPD exacerbation at this time. We will provide supplemental oxygen as needed. As needed nebulizer treatments. No indications for steroids or antibiotic therapy at this time. (4) Opiate dependence, continuous Is this a current diagnosis for this admission?: Yes Plan: The [place] substance database was reviewed. The patient was prescribed oxycodone 15 mg #125 on May 27; this appears to be her standard monthly prescription. She was also prescribed alprazolam 1 mg #60 on 1110; this appears to be her stated monthly prescription. Per the patient's roommate; the patient was admitted 3 months ago this month for similar altered mental status and acute respiratory failure; providers at that time were concerned that the patient may have been over utilizing her medications. EtOH, acetaminophen, and aspirin levels are negative. UDS is pending. Olding oxycodone Supportive care. (5) Benzodiazepine dependence Is this a current diagnosis for this admission?: Yes Plan: As above. Holding Xanax (6) Tobacco dependence Is this a current diagnosis for this admission?: Yes Plan: Patient admits to smoking greater than 1 pack daily. We will need to educate once more alert. Nicotine replacement therapy provided.
[2019-06-04 19:43] LABS: URINE AMPHETAMINES SCREEN NEGATIVE; URINE BARBITURATES SCREEN NEGATIVE; URINE BENZODIAZEPINES SCREEN UNCONFIRMED POSITIVE; URINE COCAINE SCREEN NEGATIVE; URINE MARIJUANA (THC) SCREEN NEGATIVE; URINE METHADONE SCREEN NEGATIVE; URINE PHENCYCLIDINE SCREEN NEGATIVE
[2019-06-04] MEDS: NORMAL SALINE 1000 ML 1,000 ML IV PRN (20:51)
[2019-06-04] MEDS: FAMOTIDINE 20 MG TABLET PO SCH (21:26)
[2019-06-04] MEDS: HEPARIN SOD (PORCINE) 5,000 UNIT/ML 1 ML VIAL SUBCUT SCH (21:26)
[2019-06-05] MEDS: IPRATROPIUM/ALBUTEROL 0.5-2.5 MG/3 ML AMPUL NEB SCH ×2 (00:30→08:54)
[2019-06-05 05:10] LABS: HEMATOCRIT 42.3 % (36.0-47.0); HEMOGLOBIN 14.5 g/dL (12.0-15.5); MEAN CORPUSCULAR HEMOGLOBIN 30.7 pg (27.0-33.4); MEAN CORPUSCULAR HGB CONC 34.2 g/dL (32.0-36.0); MEAN CORPUSCULAR VOLUME 90 fl (80-97); PLATELET COUNT 181 10^3/uL (150-450); RED BLOOD COUNT 4.72 10^6/uL (3.72-5.28); RED CELL DISTRIBUTION WIDTH 13.5 % (11.5-14.0); WHITE BLOOD COUNT 3.7 10^3/uL (4.0-10.5)
[2019-06-05 05:26] LABS: ANION GAP 6 (5-19); BLOOD UREA NITROGEN 13 mg/dL (7-20); CALCIUM 8.9 mg/dL (8.4-10.2); CARBON DIOXIDE 26 mmol/L (22-30); CHLORIDE 106 mmol/L (98-107); GLUCOSE 130 mg/dL (75-110); POTASSIUM 4.1 mmol/L (3.6-5.0)
[2019-06-05] MEDS ORDERED: OXYCODONE-ACETAMINOPHEN 5-325 MG TABLET ONE (06:04)
[2019-06-05] MEDS ORDERED: OXYCODONE-ACETAMINOPHEN 5-325 MG TABLET PO ONE (06:15)
[2019-06-05] MEDS: HEPARIN SOD (PORCINE) 5,000 UNIT/ML 1 ML VIAL SUBCUT SCH (06:53)
[2019-06-05] MEDS: NORMAL SALINE 1000 ML 1,000 ML IV PRN (07:45)
[2019-06-05] MEDS: FAMOTIDINE 20 MG TABLET PO SCH (09:59)
[2019-06-05] MEDS ORDERED: DOCUSATE SODIUM 100 MG CAPSULE PO SCH (10:00)
[2019-06-05] MEDS ORDERED: NICOTINE 21 MG/24 HR PATCH.TD24 TD SCH (10:00)
[2019-06-05 11:48] VITALS: BP 98/56
--- NOTE | 2019-06-07 21:13 | PDOC DISCHARGE SUMMARY ---
Impression - Admit/DC Date/PCP Admission Date/Primary Care Provider: 06/04/19 18:48 OSMAN SÁNCHEZ Discharge Date: 06/05/19 - Discharge Diagnosis (1) Acute respiratory failure with hypoxia and hypercapnia Is this a current diagnosis for this admission?: Yes (2) Altered mental status Is this a current diagnosis for this admission?: Yes (3) COPD (chronic obstructive pulmonary disease) Is this a current diagnosis for this admission?: Yes (4) Opiate dependence, continuous Is this a current diagnosis for this admission?: Yes (5) Benzodiazepine dependence Is this a current diagnosis for this admission?: Yes (6) Tobacco dependence Is this a current diagnosis for this admission?: Yes - Additional Information Resuscitation Status: Full Code Discharge Diet: Regular Discharge Activity: Activity As Tolerated, Balance Activity w/Rest Referrals: BRAXTON LYLES FNP-C [Primary Care Provider] - 06/13/19 2:15 pm Prescriptions: Nicotine [Nicoderm 21 mg/24 Hr Transderm Patch] 1 each TD DAILY #30 patch.td24 Home Medications: Acetaminophen [Tylenol 325 mg Tablet] 650 mg PO Q4HP PRN tablet 06/05/19 Nicotine [Nicoderm 21 mg/24 Hr Transderm Patch] 1 each TD DAILY #30 patch.td24 06/05/19 History of Present Illiness History of Present Illness: BERTA DUMAS is a 54 year old female with a past medical history significant for hypertension, COPD, home O2 dependence, Crohn's disease, tobacco dependence with continuous use, and opiate dependent pain who presented to the emergency department today due to 24 hours of increased confusion, lethargy, and shortness of breath. The patient's roommate states that she has been acting funny for 1- 1/2 to 2 days. He denies known substance abuse, alcohol use, or excessive use of her pain medications, however, does state that he "does not keep track of her." He does report that the patient had a similar admission a few months ago ultimately determined to be related to pain medications in conjunction with a COPD exacerbation. Evaluation in the emergency department revealed hypotension, hypoxia on room air, unremarkable CBC chemistry. ABG demonstrated compensated respiratory acidosis. Head CT and chest x-ray are benign. EKG demonstrated sinus rhythm. The patient was provided nebulizer treatments and placed on BiPAP support with improved alertness. She is now arousable, oriented to self, place, situation, briefly conversational prior to falling back to sleep. She was referred to the hospitalist service for admission and management of the above-stated complaints and findings. Hospital Course Hospital Course: The patient was admitted to [facility] on continuous cardiac telemetry. She was provided supplemental oxygen and BiPAP support. Chest x-ray was clear, ABG demonstrated compensated respiratory acidosis with hypoxia. She is afebrile and without. She was noted to have clear lung sounds. Patient's mentation improved overnight and by the following morning he was alert and oriented x4 and is maintaining her oxygen saturations while ambulatory on room air. Do not believe the patient was in acute COPD exacerbation at this time. Rather, her acute respiratory failure likely related to her combined Oxycodone and Xanax medications. Informed patient that I was concerned that her home medication regiment was no longer safe for her. I discussed how her worsening COPD status may require a reduction in the dose of her pain medications and strongly advised her to follow-up with her painter and body work at the earliest available appointment. Patient was discharged home in stable condition. She was advised to take her medications as prescribed. She was strongly encouraged to stop smoking. She is encouraged to return to the emergency department as needed for concerning symptoms. Physical Exam Vital Signs: Temp Pulse Resp BP Pulse Ox 98.2 F 83 16 98/56 L 97 06/05/19 11:45 06/05/19 11:45 06/05/19 11:45 06/05/19 11:45 06/05/19 11:45 Intake & Output 06/06/19 06/07/19 06/08/19 06:59 06:59 06:59 Intake Total 360 Balance 360 General appearance: PRESENT: no acute distress, well-developed, well-nourished Head exam: PRESENT: atraumatic, normocephalic Eye exam: PRESENT: conjunctiva pink, EOMI, PERRLA. ABSENT: scleral icterus Ear exam: PRESENT: normal external ear exam Mouth exam: PRESENT: moist, tongue midline Teeth exam: PRESENT: poor dentation Respiratory exam: PRESENT: clear to auscultation wally, symmetrical, unlabored. ABSENT: rales, rhonchi, wheezes Cardiovascular exam: PRESENT: RRR. ABSENT: diastolic murmur, rubs, systolic murmur Pulses: PRESENT: normal dorsalis pedis pul Vascular exam: PRESENT: normal capillary refill GI/Abdominal exam: PRESENT: normal bowel sounds, soft. ABSENT: distended, guarding, mass, organolmegaly, rebound, tenderness Rectal exam: PRESENT: deferred Extremities exam: PRESENT: full ROM. ABSENT: calf tenderness, clubbing, pedal edema Musculoskeletal exam: PRESENT: ambulatory Neurological exam: PRESENT: alert, awake, oriented to person, oriented to place, oriented to time, oriented to situation, CN II-XII grossly intact. ABSENT: motor sensory deficit Psychiatric exam: PRESENT: appropriate affect, normal mood. ABSENT: homicidal ideation, suicidal ideation Skin exam: PRESENT: dry, intact, warm. ABSENT: cyanosis, rash Results Laboratory Results: WBC 3.7 10^3/uL (4.0-10.5) L 06/05/19 04:45 RBC 4.72 10^6/uL (3.72-5.28) 06/05/19 04:45 Hgb 14.5 g/dL (12.0-15.5) 06/05/19 04:45 Hct 42.3 % (36.0-47.0) 06/05/19 04:45 MCV 90 fl (80-97) 06/05/19 04:45 MCH 30.7 pg (27.0-33.4) 06/05/19 04:45 MCHC 34.2 g/dL (32.0-36.0) 06/05/19 04:45 RDW 13.5 % (11.5-14.0) 06/05/19 04:45 Plt Count 181 10^3/uL (150-450) 06/05/19 04:45 Lymph % (Auto) 37.7 % (13-45) 06/04/19 15:14 [place] % (Auto) 12.6 % (3-13) 06/04/19 15:14 Eos % (Auto) 2.0 % (0-6) 06/04/19 15:14 Baso % (Auto) 0.8 % (0-2) 06/04/19 15:14 Absolute Neuts (auto) 2.9 10^3/uL (1.7-8.2) 06/04/19 15:14 Absolute Lymphs (auto) 2.3 10^3/uL (0.5-4.7) 06/04/19 15:14 Absolute Monos (auto) 0.8 10^3/uL (0.1-1.4) 06/04/19 15:14 Absolute Eos (auto) 0.1 10^3/uL (0.0-0.6) 06/04/19 15:14 Absolute Basos (auto) 0.0 10^3/uL (0.0-0.2) 06/04/19 15:14 Seg Neutrophils % 46.9 % (42-78) 06/04/19 15:14 Carbonic Acid 1.69 mmol/L (1.05-1.35) H 06/04/19 16:10 HCO3/H2CO3 Ratio 18:1 06/04/19 16:10 ABG pH 7.37 (7.35-7.45) 06/04/19 16:10 ABG pCO2 56.3 mmHg (35-45) H 06/04/19 16:10 ABG pO2 118.8 mmHg (80-100) H 06/04/19 16:10 ABG HCO3 31.8 mmol/L (20-24) H 06/04/19 16:10 ABG Total CO2 33.5 mmol/L (21-25) H 06/04/19 16:10 ABG O2 Saturation 98.1 % (94-98) H 06/04/19 16:10 ABG Base Excess 5.0 mmol/L 06/04/19 16:10 VBG pH 7.32 (7.30-7.42) 06/04/19 15:14 VBG pCO2 67.2 mmHg (35-63) H* 06/04/19 15:14 VBG HCO3 34.1 mmol/L (20-32) H 06/04/19 15:14 VBG Base Excess 5.6 mmol/L 06/04/19 15:14 FiO2 28% 06/04/19 16:10 Sodium 138.2 mmol/L (137-145) 06/05/19 04:45 Potassium 4.1 mmol/L (3.6-5.0) 06/05/19 04:45 Chloride 106 mmol/L (98-107) 06/05/19 04:45 Carbon Dioxide 26 mmol/L (22-30) 06/05/19 04:45 Anion Gap 6 (5-19) 06/05/19 04:45 BUN 13 mg/dL (7-20) 06/05/19 04:45 Creatinine 0.40 mg/dL (0.52-1.25) L 06/05/19 04:45 Est GFR ( Amer) > 60 (>60) 06/05/19 04:45 Est GFR (MDRD) Non-Af > 60 (>60) 06/05/19 04:45 Glucose 130 mg/dL (75-110) H 06/05/19 04:45 POC Glucose 93 mg/dL (70-110) 06/04/19 14:14 Lactic Acid (Sepsis) 1.0 mmol/L (0.7-2.1) 06/04/19 15:14 Calcium 8.9 mg/dL (8.4-10.2) 06/05/19 04:45 Total Bilirubin 0.4 mg/dL (0.2-1.3) 06/04/19 15:14 Direct Bilirubin 0.2 mg/dL (0.0-0.4) 06/04/19 15:14 Neonat Total Bilirubin Not Reportable 06/04/19 15:14 Neonat Direct Bilirubin Not Reportable 06/04/19 15:14 Neonat Indirect Bili Not Reportable 06/04/19 15:14 AST 34 U/L (14-36) 06/04/19 15:14 ALT 17 U/L (<35) 06/04/19 15:14 Alkaline Phosphatase 57 U/L (38-126) 06/04/19 15:14 Troponin I < 0.012 ng/mL 06/04/19 15:14 Total Protein 6.7 g/dL (6.3-8.2) 06/04/19 15:14 Albumin 3.9 g/dL (3.5-5.0) 06/04/19 15:14 Salicylates < 1.0 mg/dL (2.0-20.0) L 06/04/19 15:14 Urine Opiates Screen UNCONFIRMED POSITIVE 06/04/19 19:20 Urine Methadone Screen NEGATIVE 06/04/19 19:20 Acetaminophen < 10 ug/mL (10-30) L 06/04/19 15:14 Ur Barbiturates Screen NEGATIVE 06/04/19 19:20 Ur Phencyclidine Scrn NEGATIVE 06/04/19 19:20 Ur Amphetamines Screen NEGATIVE 06/04/19 19:20 U Benzodiazepines Scrn UNCONFIRMED POSITIVE 06/04/19 19:20 Urine Cocaine Screen NEGATIVE 06/04/19 19:20 U Marijuana (THC) Screen NEGATIVE 06/04/19 19:20 Serum Alcohol < 10 mg/dL (NONE DETECTED) 06/04/19 15:14 06/04/19 15:14 Troponin I < 0.012 Impressions: Head CT 06/04/19 00:00 IMPRESSION: No acute intracranial pathology. EVIDENCE OF ACUTE STROKE: NO. Chest X-Ray 06/04/19 14:21 IMPRESSION: Emphysema without acute abnormality of the lungs. Plan Plan of Treatment: The patient is discharged home in stable condition. She is advised to follow-up with her primary care provider within 1 week. She is instructed to follow-up with her primary management provider as scheduled; strongly recommended decreasing the patient Xanax and oxycodone dosing as she has had multiple admissions for acute respiratory failure and altered mental status. His medications are likely contributing to her chronic respiratory failure and resulting in acute respiratory failure. Remaining medications as prescribed. She is strongly advised to stop smoking. She is encouraged to return to the emergency department as needed for concerning symptoms. Time Spent: Less than 30 Minutes Stroke Is this a Stroke Patient?: No Acute Heart Failure - Is this a Heart Failure Patient?: No
== END 2019-06-05 12:03 | disposition home or self-care (01) ==
LOC: ER 14:05 → EH 18:48 → 3S 21:00
PROVIDERS: ADMIT Internal Medicine; ATTEND Internal Medicine
DX: J96.02 Acute respiratory failure with hypercapnia (principal); J96.01 Acute respiratory failure with hypoxia; R40.0 Somnolence; J43.2 Centrilobular emphysema; F11.20 Opioid dependence, uncomplicated; F13.20 Sedative, hypnotic or anxiolytic dependence, uncomplicated; F17.210 Nicotine dependence, cigarettes, uncomplicated; I95.9 Hypotension, unspecified; R50.9 Fever, unspecified; R19.7 Diarrhea, unspecified; G89.29 Other chronic pain; K50.90 Crohn's disease, unspecified, without complications; Z99.81 Dependence on supplemental oxygen; Z82.49 Family history of ischemic heart disease and other diseases of the circulatory system; Z79.899 Other long term (current) drug therapy; Z79.51 Long term (current) use of inhaled steroids; Z98.84 Bariatric surgery status; Z90.49 Acquired absence of other specified parts of digestive tract; Z98.890 Other specified postprocedural states
CPT/HCPCS: 93005; 94640 ×2; 99291; 96375; 96365; 96366; 36415 ×2; 87040; 82962; 80307 ×4; 82803 ×2; 85025; 85027; 80048; 80053; 84484; 83605; 71045; 70450; 93010; 36600; 94660 ×2; G0378 ×3; A9270 ×7; J1644; J2930; J3475; J2550; J7030 ×2; J7620

== ENCOUNTER 2019-06-09 12:29 | Emergency (ER) | payer MEDICARE ==
[2019-06-09 12:34] VITALS: BP 113/64
[2019-06-09] MEDS ORDERED: DIPH/PERTUSS(ACELL)/TETANUS VAC/PF 0.5 ML SYR (>=10YO) IM ONE (13:08)
--- NOTE | 2019-06-09 13:11 | ER Document Report ---
HPI - HPI Patient complains to provider of: laceration to lower leg Time Seen by Provider: 06/09/19 13:03 Onset: Yesterday Onset/Duration: Better Quality of pain: Throbbing Severity: Moderate Pain Level: 2 Context: 54-year-old female presented to ED for reevaluation of a laceration to her right lower leg. She states she and her cleaned it up to go with peroxide and soap last night and then put Steri-Strips on it. There is no redness swelling or drainage from the site. It looks to be healing. She states her tetanus is out of date. She is alert oriented respirations regular nonlabored speaking in full sentences. Associated Symptoms: None Exacerbated by: Denies Relieved by: Denies Similar symptoms previously: Yes Recently seen / treated by doctor: No - ROS ROS below otherwise negative: Yes - CONSTITUTIONAL Constitutional: REPORTS: Fever - EENT EENT: DENIES: Sore Throat, Ear Pain, Nasal Drainage-Clear, Nasal Drainage- Purulent, Congestion, Eye problems - NEURO Neurology: DENIES: Headache, Weakness, Vision blurred, Dizzinesss / Vertigo - CARDIOVASCULAR Cardiovascular: DENIES: Chest pain - RESPIRATORY Respiratory: DENIES: Trouble Breathing, Coughing - GASTROINTESTINAL Gastrointestinal: DENIES: Abdominal Pain, Nausea, Patient vomiting, Diarrhea, Constipation, Black / Bloody Stools - URINARY Urinary: DENIES: Dysuria, Urgency, Frequency - REPRODUCTIVE Reproductive: DENIES: :, Postmenopausal, Abnormal bleeding / discharge - MUSCULOSKELETAL Musculoskeletal: REPORTS: Extremity pain - 3 cm laceration left lower leg Notes: Laceration had already been cleaned and Steri-Stripped by family member. The wound is well approximated no redness no drainage no signs of infection she does need tetanus immunization and she will receive that now. - DERM Skin Color: Normal Skin Problems: Laceration Past Medical History - General Information source: Patient - Social History Smoking Status: Former Smoker - 2 months ago Frequency of alcohol use: Rare Drug Abuse: None Lives with: Friend Family History: CAD - Mother and brother, COPD - Father, DM - Father Patient has suicidal ideation: No Patient has homicidal ideation: No - Past Medical History Cardiac Medical History: Reports: None Pulmonary Medical History: Reports: Hx COPD, Hx Pneumonia, Hx Respiratory Failure EENT Medical History: Reports: None Neurological Medical History: Reports: None Endocrine Medical History: Reports: None Renal/ Medical History: Reports: None Malignancy Medical History: Reports: None GI Medical History: Reports: Hx Crohn's Disease, Hx Colonoscopy, Hx Endoscopy Musculoskeletal Medical History: Reports None Skin Medical History: Reports None Psychiatric Medical History: Reports: None Traumatic Medical History: Reports: None Infectious Medical History: Reports: None Past Surgical History: Reports: Hx Abdominal Surgery - gastric by-pass, Hx Bowel Surgery, Hx Cholecystectomy, Hx Gastric Bypass Surgery, Hx Herniorrhaphy - Multiple ventral hernia repairs, Hx Orthopedic Surgery - Cervical spine surgery (discectomies) - Immunizations Immunizations up to date: Yes Hx Diphtheria, Pertussis, Tetanus Vaccination: Yes - 06/09/2019 Vertical Provider Document - CONSTITUTIONAL Agree With Documented VS: Yes Exam Limitations: No Limitations General Appearance: WD/WN, No Apparent Distress - INFECTION CONTROL TRAVEL OUTSIDE OF THE [place] IN LAST 30 DAYS: No - HEENT HEENT: Atraumatic, Normal ENT Exam, Normocephalic, PERRLA - NECK Neck: Normal Inspection, Supple, Thyroid Normal - RESPIRATORY Respiratory: Breath Sounds Normal, No Respiratory Distress, Chest Non-Tender - CARDIOVASCULAR Cardiovascular: Regular Rate, Regular Rhythm, No Murmur - GI/ABDOMEN Gastrointestinal: Abdomen Soft, Abdomen Non-Tender, Abdomen Tender, No Organomegaly, Normal Bowel Sounds - BACK Back: Normal Inspection - MUSCULOSKELETAL/EXTREMETIES Musculoskeletal/Extremeties: MARY, FROM, Tender - 3 cm laceration to the right lower left leg has already been Steri-Stripped before I saw her. We will give her her tetanus - NEURO Level of Consciousness: Awake, Alert, Appropriate Deep Tendon Reflexes: 2+ - DERM Integumentary: Laceration - 3 cm laceration to the right lateral lower leg Course - Vital Signs Vital signs: Temp Pulse Resp BP Pulse Ox 97.9 F 72 113/64 90 L 06/09/19 12:33 06/09/19 12:33 06/09/19 12:33 06/09/19 12:33 Discharge - Discharge Clinical Impression: Laceration of leg, right Qualifiers: Encounter type: initial encounter Qualified Code(s): S81.811A - Laceration without foreign body, right lower leg, initial encounter Condition: Stable Disposition: HOME, SELF-CARE Additional Instructions: NON-SUTURED LACERATION: Your laceration did not require suturing. Some lacerations cannot be sutured because of increased infection risk, while others simply don't need stitches because they are shallow or very short. Your laceration cannot be sutured due to the length of time between the laceration and your visit. This Steri-Strips your family member put on are healing the wound well please follow the instructions below Your injury should be protected while it heals. Usually complete healing takes 10 to 14 days. Keep the dressing clean and dry, and change it every day. If you notice increasing pain, redness, swelling, drainage, or tender lumps in the armpit or groin above the injury, infection may be present. You should call the doctor at once. Care of Steri-Strip Closure Your cut has been closed up with a special surgical tape. For this type of cut, it can replace stitches. You must protect the wound just as you would with stitches, however. For the first few days, keep the wound area completely dry. This also means you should avoid activity which makes you sweat. Do not move the area if motion stretches or wrinkles the strips. Don't allow the area to be bumped -- if bleeding occurs, the blood can make the strips loosen. The strips are somewhat waterproof. After a few days, the physician may allow you to shower. Be sure to ask if it's OK. Do not remove the tape until it peels off by itself. At that time, the wound should be healed. SOAP CLEANSING: Gently wash the wound daily using a mild soap (like Ivory, Phisoderm, Neutrogena). Use warm water, rubbing gently until all debris, ooze, and crusting have been washed from the wound. Allow to dry briefly (about 10 minutes) after cleaning. Repeat this cleansing at least three times a day for the first two days and then once or twice a day. TETANUS IMMUNIZATION GIVEN: You have been given an immunization against tetanus. Please record this in your records. In general, a booster is needed only once every 10 years. The tetanus shot protects against tetanus or "lockjaw," which is a complication of certain wound infections (the tetanus shot cannot protect against the actual infection). The immunization site may become warm and red due to local reaction. If this occurs, apply warm compresses and take aspirin or ibuprofen to reduce inflammation and discomfort. Return for evaluation if the reaction becomes severe. FOLLOW-UP CARE: Please return in __3___ days for an infection check and dressing change. If you have been referred to another physician for follow-up care, call that physicians office for an appointment as you were instructed. If you experience a significant change in your laceration, or if you are concerned there may be an infection (swelling, redness, drainage, increasing tenderness, red streaks, tender lumps in the armpit or groin above the laceration, or fever), return to the Emergency Department immediately re-evaluation. Referrals: BRAXTON LYLES, [employer] [ALLIED HEALTH PROFESSIONAL] - Follow up as needed
== END 2019-06-09 13:36 | disposition home or self-care (01) ==
LOC: ER 12:29
DX: Z23 Encounter for immunization (principal); S81.811A Laceration without foreign body, right lower leg, initial encounter; R50.9 Fever, unspecified; X58.XXXA Exposure to other specified factors, initial encounter; Z87.891 Personal history of nicotine dependence; J44.9 Chronic obstructive pulmonary disease, unspecified
CPT/HCPCS: 90471; 90715; 99282

== ENCOUNTER 2019-07-24 17:37 | Emergency (ER) | payer MEDICARE ==
--- NOTE | 2019-07-24 17:43 | ER Document Report ---
ED Medical Screen (RME) - General Stated Complaint: RAN OUT OF OXYGEN/DIZZY/CONFUSED Time Seen by Provider: 07/24/19 17:41 Mode of Arrival: Wheelchair Information source: Patient Notes: Patient is a 54-year-old female brought in by her daughter with concerns for possible stroke. I was called out to the front desk officer to rapidly evaluate the patient. Patient's daughter states that she has been not feeling well since th is morning, states that she has gone to check on her several times in the most recent time she went to check on her the patient had slurred speech and was very altered. Patient did also run out of her oxygen at some point today. Daughter is concerned she may be having a stroke. Patient appears to be very sleepy but is responsive to verbal stimuli, she is answering some questions but mildly conf used. Unable to get a good neuro exam due to patient's lack of ability to follow all commands and cooperate. Stroke alert was initiated, patient sent for's rapid CT scan. Charge nurse also made aware so patient can be immediately placed in a room. I have greeted and performed a rapid initial assessment of this patient. A comprehensive ED assessment and evaluation of the patient, analysis of test results and completion of the medical decision making process will be conducted by additional ED providers. I have specifically instructed the patient or family members with the patient to immediately return to any nursing staff should anything change in the patient's condition or with their chief complaint. TRAVEL OUTSIDE OF THE [place] IN LAST 30 DAYS: No - Related Data Allergies/Adverse Reactions: Penicillins Allergy (Verified 06/09/19 13:06) VOMITING Past Medical History - Past Medical History Cardiac Medical History: Denies: Hx Coronary Artery Disease, Hx Hypertension Pulmonary Medical History: Reports: Hx COPD, Hx Pneumonia, Hx Respiratory Failure Neurological Medical History: Denies: Hx Seizures Endocrine Medical History: Denies: Hx Diabetes Mellitus Type 1, Hx Diabetes Mellitus Type 2, Hx Hyperthyroidism, Hx Hypothyroidism GI Medical History: Reports: Hx Crohn's Disease, Hx Colonoscopy, Hx Endoscopy. Denies: Hx Cirrhosis, Hx Hepatitis, Hx Ulcerative Colitis Musculoskeltal Medical History: Denies Hx Arthritis, Denies Hx Gout Skin Medical History: Denies Hx Eczema, Denies Hx Psoriasis Psychiatric Medical History: Denies: Hx Depression Infectious Medical History: Denies: Hx Hepatitis Past Surgical History: Reports: Hx Abdominal Surgery - gastric by-pass, Hx Bowel Surgery, Hx Cholecystectomy, Hx Gastric Bypass Surgery, Hx Herniorrhaphy - Multiple ventral hernia repairs, Hx Orthopedic Surgery - Cervical spine surgery (discectomies), Other - Colonoscopy, bowel perforation repair - Immunizations Immunizations up to date: Yes Hx Diphtheria, Pertussis, Tetanus Vaccination: Yes - 06/09/2019
--- NOTE | 2019-07-24 18:16 | RADIOLOGY REPORT (SQ) ---
EXAM DESCRIPTION: CT HEAD WITHOUT COMPLETED DATE/TIME: 07/24/2019 4:54 pm REASON FOR STUDY: ams COMPARISON: 06/04/2019. TECHNIQUE: Axial images acquired through the brain without intravenous contrast. Images reviewed wi th bone, brain and subdural windows. Images stored on PACS. All CT scanners at this facility use dose modulation, iterative reconstruction, and/or weight based d osing when appropriate to reduce radiation dose to as low as reasonably achievable (ALARA). [facility]: Dose Right [facility]: CareDose [facility]: Dose Right [facility]: Teradose 4D [facility]: Smart Deep Domain RADIATION DOSE: CT Rad equipment meets quality standard of care and radiation dose reduction techniq ues were employed. CTDIvol: 53.2 mGy. DLP: 991 mGy-cm. mGy. LIMITATIONS: None. FINDINGS: VENTRICLES: Normal size and contour. CEREBRUM: No masses. No hemorrhage. No midline shift. No evidence for acute infarction. Normal gra y/white matter differentiation. No areas of low density in the white matter. CEREBELLUM: No masses. No hemorrhage. No alteration of density. No evidence for acute infarction. EXTRAAXIAL SPACES: No fluid collections. No masses. ORBITS AND GLOBE: No intra- or extraconal masses. Normal contour of globe without masses. CALVARIUM: No fracture. PARANASAL SINUSES: No fluid or mucosal thickening. SOFT TISSUES: No mass or hematoma. OTHER: No other significant finding. IMPRESSION: No acute intracranial hemorrhage, mass, or evidence of acute territorial infarct. EVIDENCE OF ACUTE STROKE: NO. COMMENT: Quality ID # [id number]: Final reports with documentation of one or more dose reduction techniques (e.g., Automated exposure control, adjustment of the mA and/or kV according to patient size, use of iterative reconstruction technique) TECHNICAL DOCUMENTATION: JOB ID: [id number] [employer]- All Rights Reserved Reading location - IP/workstation name: [email or web address]
--- NOTE | 2019-07-24 18:17 | RADIOLOGY REPORT (SQ) ---
EXAM DESCRIPTION: CHEST SINGLE VIEW COMPLETED DATE/TIME: 07/24/2019 4:56 pm REASON FOR STUDY: ams, concern for stroke COMPARISON: 06/04/2019 EXAM PARAMETERS: NUMBER OF VIEWS: One view. TECHNIQUE: Single frontal radiographic view of the chest acquired. RADIATION DOSE: NA LIMITATIONS: None. FINDINGS: LUNGS AND PLEURA: The lungs are hyperinflated. No opacities, masses or pneumothorax. No p leural effusion. MEDIASTINUM AND HILAR STRUCTURES: No masses. Contour normal. HEART AND VASCULAR STRUCTURES: Heart normal in size. Normal vasculature. BONES: No acute findings. HARDWARE: None in the chest. OTHER: No other significant finding. IMPRESSION: No significant interval change. No acute cardiopulmonary disease. TECHNICAL DOCUMENTATION: JOB ID: [id number] [employer]- All Rights Reserved Reading location - IP/workstation name: [email or web address]
[2019-07-24 18:43] LABS: VENOUS BLOOD BASE EXCESS 3.3 mmol/L; VENOUS BLOOD HCO3 32.5 mmol/L (20-32); VENOUS BLOOD PH 7.28 (7.30-7.42)
[2019-07-24 18:45] LABS: VENOUS BLOOD PCO2 71.1 mmHg (35-63)
[2019-07-24 18:48] LABS: ALBUMIN 3.6 g/dL (3.5-5.0); ALKALINE PHOSPHATASE 54 U/L (38-126); ANION GAP 6 (5-19); ASPARTATE AMINO TRANSFERASE 29 U/L (14-36); BILIRUBIN,DIRECT 0.2 mg/dL (0.0-0.4); BILIRUBIN,TOTAL 0.4 mg/dL (0.2-1.3); BLOOD UREA NITROGEN 15 mg/dL (7-20); CALCIUM 9.1 mg/dL (8.4-10.2); CARBON DIOXIDE 30 mmol/L (22-30); CHLORIDE 102 mmol/L (98-107); CREATINE KINASE 52 U/L (30-135); GLUCOSE 91 mg/dL (75-110); TOTAL PROTEIN 6.2 g/dL (6.3-8.2)
[2019-07-24] MEDS ORDERED: NORMAL SALINE 1000 ML 1,000 ML IV ONE (18:50)
[2019-07-24 19:00] LABS: CREATINE KINASE MB 1.06 ng/mL (<4.55); TROPONIN I < 0.012 ng/mL
[2019-07-24 19:07] LABS: ABSOLUTE EOSINOPHILS # (AUTO) 0.1 10^3/uL (0.0-0.6); ABSOLUTE LYMPHOCYTES (AUTO) 2.4 10^3/uL (0.5-4.7); ABSOLUTE MONOCYTES (AUTO) 1.1 10^3/uL (0.1-1.4); BASOPHILS % (AUTO) 0.3 % (0-2); EOSINOPHILS % (AUTO) 1.1 % (0-6); HEMATOCRIT 41.5 % (36.0-47.0); MEAN CORPUSCULAR HEMOGLOBIN 30.6 pg (27.0-33.4); MEAN CORPUSCULAR HGB CONC 33.6 g/dL (32.0-36.0); MEAN CORPUSCULAR VOLUME 91 fl (80-97); MONOCYTES % (AUTO) 8.6 % (3-13); PLATELET COUNT 173 10^3/uL (150-450); RED BLOOD COUNT 4.57 10^6/uL (3.72-5.28); RED CELL DISTRIBUTION WIDTH 14.4 % (11.5-14.0); TOTAL CELLS COUNTED % (AUTO) 100 %; WHITE BLOOD COUNT 12.8 10^3/uL (4.0-10.5)
--- NOTE | 2019-07-24 19:42 | EKG REPORT ---
SEVERITY:- NORMAL ECG - SINUS RHYTHM : Confirmed by: Tim Coburn 24-Jul-2019 19:41:41
[2019-07-24 19:56] LABS: INTERNATIONAL RATION (INR) 0.97
[2019-07-24 19:57] LABS: PARTIAL THROMBOPLASTIN TIME 22.5 SEC (23.5-35.8)
[2019-07-24 20:05] LABS: PROTHROMBIN TIME 12.9 SEC (11.4-15.4)
--- NOTE | 2019-07-24 20:18 | ER Document Report ---
Entered by SYED GREEN SCRIBE 07/24/19 1848 Acting as scribe for:VANI AMADO IV, MD ED General - General Chief Complaint: Altered Mental Status Stated Complaint: RAN OUT OF OXYGEN/DIZZY/CONFUSED Time Seen by Provider: 07/24/19 17:41 Primary Care Provider: MARIA M THORNTON PA-C [COMMUNITY BASED STAFF] - Follow up tomorrow Mode of Arrival: Wheelchair Information source: Patient Notes: This 54 year old female patient presents to the emergency department today with complaints of "feeling confused". Patient appears quite older than stated age and continues to smoke. The patient has had multiple visits to the ED with a similar presentation and she was found to typically always be hypoxic without her home oxygen when that occurs. Patient states that earlier today her CPAP broke so she has been without oxygen. TRAVEL OUTSIDE OF THE [place] IN LAST 30 DAYS: No - Related Data Allergies/Adverse Reactions: Penicillins Allergy (Verified 06/09/19 13:06) VOMITING Past Medical History - General Information source: Patient - Social History Smoking Status: Current Every Day Smoker Cigarette use (# per day): Yes Frequency of alcohol use: None Drug Abuse: None Lives with: Family Family History: Reviewed & Not Pertinent, CAD - Mother and brother, COPD - Father, DM - Father Pulmonary Medical History: Reports: Hx COPD, Hx Pneumonia, Hx Respiratory Failure GI Medical History: Reports: Hx Crohn's Disease, Hx Colonoscopy, Hx Endoscopy Past Surgical History: Reports: Hx Abdominal Surgery - gastric by-pass, Hx Bowel Surgery, Hx Cholecystectomy, Hx Gastric Bypass Surgery, Hx Herniorrhaphy - Multiple ventral hernia repairs, Hx Orthopedic Surgery - Cervical spine surgery (discectomies), Other - Colonoscopy, bowel perforation repair - Immunizations Immunizations up to date: Yes Hx Diphtheria, Pertussis, Tetanus Vaccination: Yes - 06/09/2019 Review of Systems - Review of Systems Constitutional: No symptoms reported EENT: No symptoms reported Cardiovascular: No symptoms reported Respiratory: See HPI, Short of breath Gastrointestinal: No symptoms reported Genitourinary: No symptoms reported Female Genitourinary: No symptoms reported Musculoskeletal: No symptoms reported Skin: No symptoms reported Hematologic/Lymphatic: No symptoms reported Neurological/Psychological: See HPI, Confusion -: Yes All other systems reviewed and negative Physical Exam - Vital signs Vitals: Temp Pulse Resp BP Pulse Ox 98.6 F 108 H 18 103/65 90 L 07/24/19 17:43 07/24/19 17:43 07/24/19 17:43 07/24/19 17:43 07/24/19 17:43 - General General appearance: Alert, Other - appears much older than stated age In distress: None - HEENT Head: Normocephalic, [place]'s eyes Eyes: Normal Pupils: Pinpoint - bilaterally - Respiratory Respiratory status: Respiratory distress - mild - Cardiovascular Rhythm: Tachycardia - into the low 100s Heart sounds: Normal auscultation Murmur: No - Abdominal Inspection: Normal Distension: No distension - Extremities General upper extremity: Normal inspection. No: Edema General lower extremity: Normal inspection. No: Edema - Neurological Neuro grossly intact: Yes Cognition: Normal - Psychological Associated symptoms: Normal affect, Normal mood - Skin Skin Temperature: Warm Skin Moisture: Dry Skin Color: Normal Course - Re-evaluation Re-evalutation: 07/24/19 20:37 Patient is alert and oriented x4 and is in no acute distress. She is showing no signs of altered mental status or confusion. Results of ED MSE were explained to patient. When patient was asked if she had any questions about her visit to the ER today and if everything was explained to her and manner in which she understood she answered in the affirmative. Patient states that she has oxygen at home. Emergency signs and symptoms, reasons to return to the emergency department discussed with patient. Medical decision making and plan: It seems as though the patient's transient altered mental status may have been secondary to the fact that she ran out of oxygen that was in her portable tank. Given that the patient is alert and oriented x4, answers questions appropriately, appears to be in no acute distr ess, shows no signs of confusion, I do not think that she has hypercapnia or CO2 narcosis that is clinically significant. Again patient states that she does have more oxygen at home and she has been counseled about emergency signs and symptoms, and reasons to call the emergency department return to the ED if needed. 07/24/19 20:48 Patient states that she believes her CO2 level was elevated at home this morning and was contributing to her confusion. At this time the patient's exam and again is not consistent with hypercarbia or CO2 narcosis. This MD offered to have an ABG done to get a more accurate reflection of the patient's oxygenation ventilation status and whether she is in a hypercarbic state. Pt flatly refused to have an ABG done. Pt encouraged to return to ED at any time if she has return of symptoms. - Vital Signs Vital signs: Temp Pulse Resp BP Pulse Ox 99.2 F 108 H 12 96/70 L 87 L 07/24/19 19:56 07/24/19 17:43 07/24/19 19:50 07/24/19 19:50 07/24/19 19:50 - Laboratory Result Diagrams: 07/24/19 18:50 07/24/19 18:20 Laboratory results interpreted by me: 07/24/19 07/24/19 07/24/19 18:20 18:27 18:50 WBC 12.8 H RDW 14.4 H Absolute Neuts (auto) 9.0 H APTT VBG pH 7.28 L VBG pCO2 71.1 H* VBG HCO3 32.5 H Creatinine 0.51 L Total Protein 6.2 L 07/24/19 19:35 WBC RDW Absolute Neuts (auto) APTT 22.5 L VBG pH VBG pCO2 VBG HCO3 Creatinine Total Protein - EKG Interpretation by Me Additional EKG results interpreted by me: 07/24/19 19:14 EKG obtained on 07/24/2019 at 1808 hrs. was interpreted by this MD. Findings: Normal sinus rhythm, rate 94, normal axis, P waves preceding QRS complexes, QRS complexes appear narrow, there are no obvious patterns of ST segment elevation or depression to suggest acute myocardial ischemia or infarction. Impression normal sinus rhythm with nonspecific ST segments. Discharge - Discharge Clinical Impression: Transient alteration of awareness Condition: Good Disposition: HOME, SELF-CARE Additional Instructions: Return to the Emergency Department without delay if any worse. HOME CARE INSTRUCTIONS & INFORMATION: Thank you for choosing us for your medical needs. We hope you're satisfied with the care you received. After you leave, you must properly care for your problem and, at the same time, observe its progress. Any condition can change. Some illnesses can change rapidly over hours or days. If your condition worsens, return to the Emergency Department or see your physician promptly. ABOUT YOUR X-RAYS AND EKG'S: If you had an EKG or X-rays taken, they have been read by the Emergency Physician. The X-rays and EKG's will also be read by a Radiologist or Director Case within 24 hours. If discrepancies are noted, you will be notified by telephone. Please be certain the ED has a correct telephone number & address where you can be reached. Also, realize that some fractures or abnormalities do not show up on initial X-rays. If your symptoms continue, see your physician. ABOUT YOUR LABORATORY TEST: If you had laboratory tests, the results have been reviewed by the Emergency Physician. Some test results (for example cultures) may not be available for several days. You will be contacted if any test result shows you need additional treatment. Please be certain the ED has a correct telephone number and address where you can be reached. ABOUT YOUR MEDICATIONS: You will receive instructions on how to take your medicine on the prescription label you receive. Additional information may be provided by the Pharmacy. If you have questions afterwards, call the ED for clarification or further instructions. Some prescribed medications may cause drowsiness. Do not perform tasks such as driving a car or operating machinery without consulting your Pharmacist. If you feel you need a refill of pain medication, your condition will need re-evaluation. Please do not call for a refill of any medication. ABOUT YOUR SIGNATURE: Signature of this document acknowledges to followin. Understanding that you received emergency treatment and that you may be released before al medical problems are known or treated. Please be certain the ED has a correct phone number & address where you can be reached. 2. Acknowledgement that you will arrange for follow-up care as recommended. 3. Authorization for the Emergency Physician to provide information to your follow-up Physician in order to maximize your care. AT ANY TIME, IF YOUR SYMPTOMS CHANGE SIGNIFICANTLY OR WORSEN OR YOU DEVELOP NEW SYMPTOMS, RETURN TO THE EMERGENCY DEPARTMENT IMMEDIATELY FOR RE-EVALUATION. OUR GOAL IS TO PROVIDE EXCELLENT MEDICAL CARE! WE HOPE THAT WE HAVE MET YOUR EXPECTATIONS DURING YOUR EMERGENCY DEPARTMENT VISIT AND THAT YOU FEEL YOU HAVE RECEIVED EXCELLENT CARE! Referrals: MARIA M THORNTON PA-C [COMMUNITY BASED STAFF] - Follow up tomorrow I personally performed the services described in the documentation, reviewed and edited the documentation which was dictated to the scribe in my presence, and it accurately records my words and actions.
[2019-07-24 21:01] VITALS: BP 89/63
== END 2019-07-24 21:03 | disposition home or self-care (01) ==
LOC: ER 17:37
DX: R40.4 Transient alteration of awareness (principal); R42 Dizziness and giddiness; R41.0 Disorientation, unspecified; F17.210 Nicotine dependence, cigarettes, uncomplicated; Z88.0 Allergy status to penicillin; Z99.81 Dependence on supplemental oxygen; Z98.84 Bariatric surgery status; Z90.49 Acquired absence of other specified parts of digestive tract
CPT/HCPCS: 93005; 99285; 96360; 36415; 82553; 82550; 85025; 85610; 85730; 80053; 84484; 82803; 71045; 70450; 93010; J7030

== ENCOUNTER 2019-12-04 18:30 | Emergency (ER) | payer MEDICARE ==
[2019-12-04] MEDS ORDERED: ONDANSETRON HCL INJ/PF 4 MG/2 ML SDV IV ONE (18:49)
[2019-12-04] MEDS ORDERED: MORPHINE SULFATE 10 MG/ML INJ IV ONE (18:49)
[2019-12-04] MEDS ORDERED: NORMAL SALINE 1000 ML 1,000 ML IV ONE (18:49)
--- NOTE | 2019-12-04 18:52 | ER Document Report ---
ED Medical Screen (RME) - General Chief Complaint: Abdominal Cramping Stated Complaint: ABDOMINAL PAIN Time Seen by Provider: 12/04/19 18:43 Notes: She is a 54-year-old female who presents to the emergency department with a chief complaint of abdominal pain. Patient states that her pain started about 2 days ago. Patient states that she also has been vomiting. Patient has history of gastric bypass surgery and Crohn's disease. Patient states this feels similar to her Crohn's flare. States her pain is in her mid lower abdomen. Exam: Tender mid lower abdomen. I have greeted and performed a rapid initial assessment of this patient. A comprehensive ED assessment and evaluation of the patient, analysis of test results and completion of medical decision making process will be conducted by an additional ED providers. TRAVEL OUTSIDE OF THE [place] IN LAST 30 DAYS: No - Related Data Allergies/Adverse Reactions: Penicillins Allergy (Verified 12/04/19 18:43) VOMITING Past Medical History - Social History Chew tobacco use (# tins/day): No Frequency of alcohol use: None Drug Abuse: None - Past Medical History Cardiac Medical History: Denies: Hx Coronary Artery Disease, Hx Hypertension Pulmonary Medical History: Reports: Hx COPD, Hx Pneumonia, Hx Respiratory Failure Neurological Medical History: Denies: Hx Seizures Endocrine Medical History: Denies: Hx Diabetes Mellitus Type 1, Hx Diabetes Mellitus Type 2, Hx Hyperthyroidism, Hx Hypothyroidism GI Medical History: Reports: Hx Crohn's Disease, Hx Colonoscopy, Hx Endoscopy. Denies: Hx Cirrhosis, Hx Hepatitis, Hx Ulcerative Colitis Musculoskeltal Medical History: Denies Hx Arthritis, Denies Hx Gout Skin Medical History: Denies Hx Eczema, Denies Hx Psoriasis Psychiatric Medical History: Denies: Hx Depression Infectious Medical History: Denies: Hx Hepatitis Past Surgical History: Reports: Hx Abdominal Surgery - gastric by-pass, Hx Bowel Surgery, Hx Cholecystectomy, Hx Gastric Bypass Surgery, Hx Herniorrhaphy - Multiple ventral hernia repairs, Hx Orthopedic Surgery - Cervical spine surgery (discectomies), Other - Colonoscopy, bowel perforation repair - Immunizations Immunizations up to date: Yes Hx Diphtheria, Pertussis, Tetanus Vaccination: Yes - 06/09/2019 Physical Exam - Vital signs Vitals: Temp Pulse Resp BP Pulse Ox 98.2 F 101 H 16 127/102 H 96 12/04/19 18:36 12/04/19 18:36 12/04/19 18:36 12/04/19 18:36 12/04/19 18:36 Course - Vital Signs Vital signs: Temp Pulse Resp BP Pulse Ox 98.2 F 101 H 16 127/102 H 96 12/04/19 18:43 12/04/19 18:36 12/04/19 18:36 12/04/19 18:36 12/04/19 18:36
[2019-12-04 20:45] LABS: ABSOLUTE EOSINOPHILS # (AUTO) 0.1 10^3/uL (0.0-0.6); ABSOLUTE LYMPHOCYTES (AUTO) 1.4 10^3/uL (0.5-4.7); ABSOLUTE MONOCYTES (AUTO) 0.7 10^3/uL (0.1-1.4); ABSOLUTE NEUT (AUTO) 7.1 10^3/uL (1.7-8.2); BASOPHILS % (AUTO) 0.3 % (0-2); EOSINOPHILS % (AUTO) 0.6 % (0-6); HEMATOCRIT 42.1 % (36.0-47.0); HEMOGLOBIN 14.4 g/dL (12.0-15.5); LYMPHOCYTES % (AUTO) 14.9 % (13-45); MEAN CORPUSCULAR HEMOGLOBIN 30.6 pg (27.0-33.4); MEAN CORPUSCULAR HGB CONC 34.3 g/dL (32.0-36.0); MEAN CORPUSCULAR VOLUME 89 fl (80-97); MONOCYTES % (AUTO) 7.7 % (3-13); PLATELET COUNT 184 10^3/uL (150-450); RED BLOOD COUNT 4.72 10^6/uL (3.72-5.28); RED CELL DISTRIBUTION WIDTH 14.7 % (11.5-14.0); SEGMENTED NEUTROPHILS % (AUTO) 76.5 % (42-78); TOTAL CELLS COUNTED % (AUTO) 100 %; WHITE BLOOD COUNT 9.3 10^3/uL (4.0-10.5)
[2019-12-04 21:02] LABS: ALBUMIN 3.1 g/dL (3.5-5.0); ALKALINE PHOSPHATASE 51 U/L (38-126); ASPARTATE AMINO TRANSFERASE 24 U/L (14-36); BILIRUBIN,TOTAL 0.5 mg/dL (0.2-1.3); BLOOD UREA NITROGEN 13 mg/dL (7-20); CALCIUM 8.3 mg/dL (8.4-10.2); CARBON DIOXIDE 21 mmol/L (22-30); CHLORIDE 110 mmol/L (98-107); GLUCOSE 110 mg/dL (75-110); POTASSIUM 3.6 mmol/L (3.6-5.0); TOTAL PROTEIN 5.8 g/dL (6.3-8.2)
[2019-12-04 21:17] LABS: ANION GAP 5 (5-19)
[2019-12-04 22:26] LABS: APPEARANCE,URINE CLEAR; BILIRUBIN,URINE NEGATIVE (NEGATIVE); COLOR,URINE YELLOW; GLUCOSE, URINE NEGATIVE (NEGATIVE); KETONES,URINE NEGATIVE (NEGATIVE); LEUKOCYTE ESTERASE,URINE NEGATIVE (NEGATIVE); NITRITE,URINE NEGATIVE (NEGATIVE); PROTEIN,URINE NEGATIVE (NEGATIVE); URINE SPECIFIC GRAVITY 1.003; UROBILINOGEN,URINE NEGATIVE mg/dL (<2.0)
--- NOTE | 2019-12-04 23:07 | RADIOLOGY REPORT (SQ) ---
CT abdomen and pelvis with contrast on 12/04/2019 at 10:00 PM CLINICAL INDICATION: Generalized abdominal pain, history of Crohn's disease TECHNIQUE: Multiple axial images are obtained throughout the abdomen and pelvis following the administration of IV contrast, 62 mL of Omnipaque 350contrast was administered intravenously without complication. This exam was performed according to our departmental dose-optimization program, which includes automated exposure control, adjustment of the mA and/or kV according to patient size and/or use of iterative reconstruction technique. Total DLP is 475.21 mGy*cm. COMPARISON: CT chest and upper abdomen from 05/23/2019 FINDINGS: Abdomen: The lung bases are clear. The patient is status post cholecystectomy. The patient is status post gastric bypass surgery. The solid abdominal organs are otherwise unremarkable. There is no abdominal adenopathy. Vascular calcifications are noted. There is no free fluid or free air within the abdomen. No definite internal hernia or obstruction is noted. The abdominal portion of the GI tract is otherwise unremarkable. Pelvis: No free fluid is noted in the pelvis. There is no pelvic adenopathy. Pelvic portion of the GI tract is unremarkable. Degenerative changes are noted in the spine. IMPRESSION: No acute abnormality.
--- NOTE | 2019-12-04 23:20 | ER Document Report ---
Entered by MINNIE GUILLAUME SCRIBE 12/04/191950 Acting as scribe for:ABBIE YUN DO ED GI/ - General Chief Complaint: Abdominal Cramping Stated Complaint: ABDOMINAL PAIN Time Seen by Provider: 12/04/19 18:43 Information source: Patient Notes: This 54 year old female patient presents to the emergency department today with complaints of abdominal pain the past x2 days. Patient states she has been nauseous, and vomiting what she eats or drinks. Patient states her last bowel movement was yesterday and it was normal, with no blood or diarrhea. Patient states she has a history of Crohn's disease, chronic pain, and chronic abdominal pain. Patient states she has not been able to keep down her medicines these past x2 days because of vomiting. TRAVEL OUTSIDE OF THE [place] IN LAST 30 DAYS: No - Related Data Allergies/Adverse Reactions: Penicillins Allergy (Verified 12/04/19 18:43) VOMITING Past Medical History - General Information source: Patient - Social History Smoking Status: Never Smoker Cigarette use (# per day): No Chew tobacco use (# tins/day): No Frequency of alcohol use: None Drug Abuse: None Lives with: Other - Ex- Family History: Reviewed & Not Pertinent, CAD - Mother and brother, COPD - Father, DM - Father Patient has homicidal ideation: No Pulmonary Medical History: Reports: Hx COPD, Hx Pneumonia, Hx Respiratory Failure GI Medical History: Reports: Hx Crohn's Disease, Hx Colonoscopy, Hx Endoscopy, Other - Chronic abdominal pain Musculoskeletal Medical History: Reports Other - Chronic pain Past Surgical History: Reports: Hx Abdominal Surgery - gastric by-pass, Hx Bowel Surgery, Hx Cholecystectomy, Hx Gastric Bypass Surgery, Hx Herniorrhaphy - Multiple ventral hernia repairs, Hx Orthopedic Surgery - Cervical spine surgery (discectomies), Other - Colonoscopy, bowel perforation repair - Immunizations Immunizations up to date: Yes Hx Diphtheria, Pertussis, Tetanus Vaccination: Yes - 06/09/2019 Review of Systems - Review of Systems Constitutional: No symptoms reported EENT: No symptoms reported Cardiovascular: No symptoms reported Respiratory: No symptoms reported Gastrointestinal: See HPI, Abdominal pain, Nausea, Last bowel movement - yesterday - normal. denies: Diarrhea, Vomiting Genitourinary: No symptoms reported Female Genitourinary: No symptoms reported Musculoskeletal: No symptoms reported Skin: No symptoms reported Hematologic/Lymphatic: No symptoms reported Neurological/Psychological: No symptoms reported -: Yes All other systems reviewed and negative Physical Exam - Vital signs Vitals: Temp Pulse Resp BP Pulse Ox 98.2 F 101 H 16 127/102 H 96 12/04/19 18:36 12/04/19 18:36 12/04/19 18:36 12/04/19 18:36 12/04/19 18:36 - General General appearance: Alert, Other - Appears ill - HEENT Head: Normocephalic, Atraumatic Eyes: Normal Pupils: PERRL - Respiratory Respiratory status: No respiratory distress Chest status: Nontender Breath sounds: Normal Chest palpation: Normal - Cardiovascular Rhythm: Regular Heart sounds: Normal auscultation Murmur: No - Abdominal Inspection: Normal Distension: No distension Bowel sounds: Normal Tenderness: Other - Diffuse mild tenderness with palpation to the abdomen. - Extremities General upper extremity: Normal inspection. No: Edema General lower extremity: Normal inspection. No: Edema - Neurological Neuro grossly intact: Yes Cognition: Normal Orientation: AAOx4 - Psychological Associated symptoms: Normal affect, Normal mood - Skin Skin Temperature: Warm Skin Moisture: Dry Skin Color: Normal Course - Re-evaluation Re-evalutation: 12/04/19 23:13 MDM 54 year old female arrives with diffuse abdominal pain and multiple comorbidites. She has a chrons history and chronic back pain. Also has copd history. She has been unable to tolerate her po medicines. She does feel better here after treatment and her workup here is reassuring. I discussed diet modification and follow up and she expressed understanding. - Vital Signs Vital signs: Temp Pulse Resp BP Pulse Ox 98.2 F 101 H 16 127/102 H 96 12/04/19 18:43 12/04/19 18:36 12/04/19 18:36 12/04/19 18:36 12/04/19 18:36 - Laboratory Result Diagrams: 12/04/19 20:30 12/04/19 20:30 Laboratory results interpreted by me: 12/04/19 12/04/19 20:30 20:30 RDW 14.7 H Sodium 135.1 L Chloride 110 H Carbon Dioxide 21 L Creatinine 0.32 L Calcium 8.3 L Total Protein 5.8 L Albumin 3.1 L - Diagnostic Test Radiology reviewed: Reports reviewed Discharge - Discharge Clinical Impression: COPD (chronic obstructive pulmonary disease) Qualifiers: COPD type: unspecified COPD Qualified Code(s): J44.9 - Chronic obstructive pulmonary disease, unspecified Nausea and vomiting Qualifiers: Vomiting type: unspecified Vomiting Intractability: non-intractable Qualified Code(s): R11.2 - Nausea with vomiting, unspecified Crohn's disease Qualifiers: Gastrointestinal tract location: unspecified location Digestive disease complication type: unspecified complication Qualified Code(s): K50.919 - Crohn's disease, unspecified, with unspecified complications Condition: Stable Disposition: HOME, SELF-CARE Instructions: Antinausea Medication ([facility]), Clear Liquid Diet ([facility]), Family Physicians / Practices, Intravenous (IV) Fluids ([facility]), Vomiting ([facility]) Additional Instructions: See your doctor and your pain management doctor in follow up. Rest. Clear liquids for 24 hours. Please return here for any problems or any concerns including but not limited to persistent vomiting. Prescriptions: Promethazine HCl 12.5 mg RC TID #6 supp.rect Forms: Smoking Cessation Education I personally performed the services described in the documentation, reviewed and edited the documentation which was dictated to the scribe in my presence, and it accurately records my words and actions.
[2019-12-04 23:56] VITALS: BP 115/92
== END 2019-12-04 23:57 | disposition home or self-care (01) ==
LOC: ER 18:30
DX: K50.919 Crohn's disease, unspecified, with unspecified complications (principal); J44.9 Chronic obstructive pulmonary disease, unspecified; R11.2 Nausea with vomiting, unspecified; R10.9 Unspecified abdominal pain; M54.9 Dorsalgia, unspecified; G89.29 Other chronic pain; Z88.0 Allergy status to penicillin
CPT/HCPCS: 99284; 96361; 96374; 96375; 36415; 83605; 83690; 83735; 84703; 85025; 80053; 81001; 74177; J2270; J2405; J7030

== ENCOUNTER 2019-12-09 12:57 | Outpatient (CLI) | payer MEDICARE ==
[~2019-12-09 12:57] MED LIST: FERUMOXYTOL (NON-ESRD) 510 MG/NS 100 ML IV PRN; NORMAL SALINE 250 ML IV PRN
[2019-12-09 14:22] VITALS: BP 88/69
== END 2019-12-09 14:15 | disposition home or self-care (01) ==
LOC: II 12:57 → 5TH 13:00 → II 14:15
PROVIDERS: ATTEND Internal Medicine
DX: D50.9 Iron deficiency anemia, unspecified (principal); K90.9 Intestinal malabsorption, unspecified
CPT/HCPCS: 96365; Q0138; J7050

== ENCOUNTER 2019-12-16 12:54 | Outpatient (CLI) | payer MEDICARE ==
[~2019-12-16 12:54] MED LIST changes: +FERUMOXYTOL (ESRD) 510 MG/NS 100 ML IV PRN; -FERUMOXYTOL (NON-ESRD) 510 MG/NS 100 ML IV PRN
[2019-12-16 13:07] VITALS: BP 116/98
== END 2019-12-16 14:00 | disposition home or self-care (01) ==
LOC: II 12:54 → 5TH 12:56 → II 14:00
PROVIDERS: ATTEND Internal Medicine
DX: D50.9 Iron deficiency anemia, unspecified (principal); K90.9 Intestinal malabsorption, unspecified
CPT/HCPCS: 96365; Q0139; J7050

== ENCOUNTER → 2020-01-17 | Outpatient (CLI) | payer MEDICARE ==
--- NOTE | 2020-01-18 13:41 | RADIOLOGY REPORT (SQ) ---
EXAM DESCRIPTION: MRI CERVICAL SPINE WITHOUT IMAGES COMPLETED DATE/TIME: 01/17/2020 7:50 pm REASON FOR STUDY: M47.812 SPONDYLOSIS W/O MYELOPATHY OR RADICULOPATHY, CERVICAL REGION M47.812 SPON DYLOSIS W/O MYELOPATHY OR RADICULOPATHY, CERVICA COMPARISON: CT 04/16/2019 TECHNIQUE: Sagittal and Axial imaging includes T1, T2, STIR and gradient echo sequences. LIMITATIONS: None. FINDINGS: ALIGNMENT: Normal. VERTEBRAE: Intact. BONE MARROW: Normal. No marrow replacement or reactive changes. DISCS: Normal. No significant abnormal signal or loss of height. HARDWARE: ACDF C5-C7. CORD AND BASE OF BRAIN: Normal in size and signal intensity. SOFT TISSUES: No soft tissue masses. C1-C2: No significant spinal stenosis. C2-C3: No significant spinal stenosis or exit foraminal stenosis. C3-C4: No significant spinal stenosis or exit foraminal stenosis. C4-C5: No significant spinal stenosis or exit foraminal stenosis. C5-C6: Uncovertebral osteophytes slightly narrow the neural foramina. C6-C7: Uncovertebral osteophyte on the right slightly narrows the neural foramen. C7-T1: No significant spinal stenosis or exit foraminal stenosis. UPPER THORACIC: Incompletely imaged. No significant spinal stenosis or exit foraminal stenosis. OTHER: No other significant finding. IMPRESSION: Uncovertebral osteophytes at C5-6 and C6-7 slightly narrow neural foramina as described. Prior ACDF. TECHNICAL DOCUMENTATION: JOB ID: [id number] 2010 [employer]- All Rights Reserved Reading location - IP/workstation name: [email or web address]
== END ==
LOC: RAD 19:01
PROVIDERS: ATTEND Pain Medicine Pain Medicine
DX: M47.812 Spondylosis without myelopathy or radiculopathy, cervical region (principal); M25.78 Osteophyte, vertebrae
CPT/HCPCS: 72141

== ENCOUNTER 2020-05-05 17:13 | Emergency (ER) | payer MEDICARE ==
[2020-05-05 17:18] VITALS: BP 130/89
--- NOTE | 2020-05-05 17:41 | ER Document Report ---
ED Medical Screen (RME) - General Chief Complaint: Shortness Of Breath Stated Complaint: COUGH Time Seen by Provider: 05/05/20 17:20 Primary Care Provider: LUCILLE FRANKS MD [Primary Care Provider] - Follow up as needed Mode of Arrival: Ambulatory Information source: Patient Notes: 55-year-old female presented ED for shortness of breath cough congestion. She states she does have COPD emphysema and is frequently short of breath. She states she has been short of breath for about 30 days and states she does not go around people. Patient is alert and oriented lungs are clear to auscultation. I have ordered flu test chest x-ray and Covid test. I have greeted and performed a rapid initial assessment of this patient. A comprehensive ED assessment and evaluation of the patient, analysis of test results and completion of medical decision making process will be conducted by an additional ED providers. TRAVEL OUTSIDE OF THE [place] IN LAST 30 DAYS: No - Related Data Allergies/Adverse Reactions: Penicillins Allergy (Verified 12/04/19 18:43) VOMITING Past Medical History - Social History Chew tobacco use (# tins/day): No Frequency of alcohol use: None Drug Abuse: None - Past Medical History Cardiac Medical History: Denies: Hx Coronary Artery Disease, Hx Hypertension Pulmonary Medical History: Reports: Hx COPD, Hx Pneumonia, Hx Respiratory Failure Neurological Medical History: Denies: Hx Seizures Endocrine Medical History: Denies: Hx Diabetes Mellitus Type 1, Hx Diabetes Mellitus Type 2, Hx Hyperthyroidism, Hx Hypothyroidism GI Medical History: Reports: Hx Crohn's Disease, Hx Colonoscopy, Hx Endoscopy. Denies: Hx Cirrhosis, Hx Hepatitis, Hx Ulcerative Colitis Musculoskeltal Medical History: Denies Hx Arthritis, Denies Hx Gout Skin Medical History: Denies Hx Eczema, Denies Hx Psoriasis Psychiatric Medical History: Denies: Hx Depression Infectious Medical History: Denies: Hx Hepatitis Past Surgical History: Reports: Hx Abdominal Surgery - gastric by-pass, Hx Bowel Surgery, Hx Cholecystectomy, Hx Gastric Bypass Surgery, Hx Herniorrhaphy - Multiple ventral hernia repairs, Hx Orthopedic Surgery - Cervical spine surgery (discectomies), Other - Colonoscopy, bowel perforation repair - Immunizations Immunizations up to date: Yes Hx Diphtheria, Pertussis, Tetanus Vaccination: Yes - 06/09/2019 Physical Exam - Vital signs Vitals: Temp 98.3 F 05/05/20 17:14 Course - Vital Signs Vital signs: Temp Pulse Resp BP Pulse Ox 98.3 F 78 18 130/89 H 96 05/05/20 17:18 05/05/20 17:18 05/05/20 17:18 05/05/20 17:18 05/05/20 17:18 Doctor's Discharge - Discharge Referrals: LUCILLE FRANKS MD [Primary Care Provider] - Follow up as needed
--- NOTE | 2020-05-05 18:43 | ER Document Report ---
ED General - General Chief Complaint: Shortness Of Breath Stated Complaint: COUGH Time Seen by Provider: 05/05/20 17:20 Primary Care Provider: LUCILLE FRANKS MD [Primary Care Provider] - Follow up as needed Mode of Arrival: Ambulatory Notes: Patient is a 55-year-old white female with a history of emphysema and Crohn's who presents to the emergency department the chief complaint of hoarseness, sore throat and shortness of breath for nearly a month. She states that the shortness of breath is typical of her emphysema. She states that the symptoms have waxed and waned over the past month. She states that she started to get better within the voice hoarseness returned. She quit smoking a year ago. She uses inhalers for emphysema and takes steroid medicines regularly between emphysema and Crohn's. She denies any recent travel or known sick contacts. Denies any fever. No nausea, vomiting or diarrhea. No chest pain. No abdominal pain. Patient adds that she felt she needed antibiotic therapy that her had a Z-Rishabh leftover and she started taking it about 3 to 4 days ag o. Has not had any improvement. TRAVEL OUTSIDE OF THE [place] IN LAST 30 DAYS: No - Related Data Allergies/Adverse Reactions: Penicillins Allergy (Verified 12/04/19 18:43) VOMITING Past Medical History - General Information source: Patient - Social History Smoking Status: Former Smoker Chew tobacco use (# tins/day): No Frequency of alcohol use: None Drug Abuse: None Family History: Reviewed & Not Pertinent, CAD - Mother and brother, COPD - Father, DM - Father Patient has homicidal ideation: No - Past Medical History Cardiac Medical History: Denies: Hx Coronary Artery Disease, Hx Hypertension Pulmonary Medical History: Reports: Hx COPD, Hx Pneumonia, Hx Respiratory Failure Neurological Medical History: Denies: Hx Seizures Endocrine Medical History: Denies: Hx Diabetes Mellitus Type 1, Hx Diabetes Mellitus Type 2, Hx Hyperthyroidism, Hx Hypothyroidism GI Medical History: Reports: Hx Crohn's Disease, Hx Colonoscopy, Hx Endoscopy. Denies: Hx Cirrhosis, Hx Hepatitis, Hx Ulcerative Colitis Musculoskeletal Medical History: Denies Hx Arthritis, Denies Hx Gout Skin Medical History: Denies Hx Eczema, Denies Hx Psoriasis Psychiatric Medical History: Denies: Hx Depression Infectious Medical History: Denies: Hx Hepatitis Past Surgical History: Reports: Hx Abdominal Surgery - gastric by-pass, Hx Bowel Surgery, Hx Cholecystectomy, Hx Gastric Bypass Surgery, Hx Herniorrhaphy - Multiple ventral hernia repairs, Hx Orthopedic Surgery - Cervical spine surgery (discectomies), Other - Colonoscopy, bowel perforation repair - Immunizations Immunizations up to date: Yes Hx Diphtheria, Pertussis, Tetanus Vaccination: Yes - 06/09/2019 Review of Systems - Review of Systems Constitutional: denies: Fever EENT: Other - Postnasal drainage Cardiovascular: denies: Lightheaded Respiratory: Short of breath Gastrointestinal: denies: Blood streaked bowels Genitourinary: denies: Hematuria Female Genitourinary: denies: Irregular period Musculoskeletal: denies: Deformity Skin: denies: Dryness Hematologic/Lymphatic: denies: Easy bruising Neurological/Psychological: denies: Paralysis Physical Exam - Vital signs Vitals: Temp 98.3 F 05/05/20 17:14 - General General appearance: Alert In distress: None Notes: Cachectic appearing. No acute distress. Nontoxic - HEENT Head: Normocephalic, Atraumatic Eyes: Normal Conjunctiva: Normal Extraocular movements intact: Yes Eyelashes: Normal Pupils: PERRL Ears: Normal External canal: Normal Tympanic membrane: Normal Nasal: Normal Mouth/Lips: Normal Mucous membranes: Normal Pharynx: Other - Posterior pharyngeal erythema with minimal exudate. No edema. No hypertrophy of the tonsils. Uvula is midline. Patent airway. Handling secretions well. No sublingual or submental swelling. No trismus. - Respiratory Respiratory status: No respiratory distress Chest status: Nontender Breath sounds: Other - Decreased breath sounds throughout Chest palpation: Normal - Cardiovascular Rhythm: Regular Heart sounds: Normal auscultation Murmur: No - Extremities General upper extremity: No: Edema General lower extremity: No: Edema - Neurological Neuro grossly intact: Yes Cognition: Normal Orientation: AAOx4 - Psychological Associated symptoms: Normal affect, Normal mood - Skin Skin Temperature: Warm Skin Moisture: Dry Skin Color: Normal Course - Re-evaluation Re-evalutation: 05/05/20 19:49 Chest x-ray negative for acute process per radiologist. Rapid strep negative. Pending throat culture. The patient's history and physical is consistent with oropharyngeal candidiasis. Should be treated with nystatin oral solution. Counseled her regarding the importance of outpatient follow-up. Patient mentions that she is on Trelegy which can cause thrush. She will discuss with her doctor. Advise she return here or any ER immediately with any new, pe rsistent or worsening symptoms. She verbalized understood and agreed. - Vital Signs Vital signs: Temp Pulse Resp BP Pulse Ox 98.3 F 78 18 130/89 H 96 05/05/20 17:18 05/05/20 17:18 05/05/20 17:18 05/05/20 17:18 05/05/20 17:18 - Laboratory Result Diagrams: 05/05/20 18:30 05/05/20 18:30 Laboratory results interpreted by me: 05/05/20 05/05/20 18:30 18:30 WBC 13.7 H Absolute Neuts (auto) 11.0 H Seg Neutrophils % 80.1 H Creatinine 0.41 L Glucose 204 H Discharge - Discharge Clinical Impression: Oral pharyngeal candidiasis Condition: Stable Disposition: HOME, SELF-CARE Instructions: COVID-19 Guidance for Persons Under Investigation, Oral Thrush ([facility]) Additional Instructions: You are pending a COVID-19 test. You are considered a patient under investigation. Please quarantine in your home until a negative result is found and you are alerted. We are getting results on average in 3 to 5 days. Follow- up with your regular doctor in 2 to 3 days for reevaluation. Return here or any ER immediately with any new, persistent or worsening symptoms. Prescriptions: Nystatin [Mycostatin 500,000 Unit/5 ml Susp Udcup] 500,000 unit PO QID #[id number] Referrals: LUCILLE FRANKS MD [Primary Care Provider] - Follow up as needed
--- NOTE | 2020-05-05 18:52 | RADIOLOGY REPORT (SQ) ---
EXAM DESCRIPTION: CHEST SINGLE VIEW IMAGES COMPLETED DATE/TIME: 05/05/2020 6:34 pm REASON FOR STUDY: cough congestion short of breath COMPARISON: 07/24/2019 NUMBER OF VIEWS: One view. TECHNIQUE: Single frontal radiographic view of the chest acquired. LIMITATIONS: None. FINDINGS: LUNGS AND PLEURA: No opacities, masses or pneumothorax. No pleural effusion. Attenuated bl ood vessels and flattened sue-diaphragms. MEDIASTINUM AND HILAR STRUCTURES: No masses. Contour normal. HEART AND VASCULAR STRUCTURES: Heart normal in size. Normal vasculature. BONES: No acute findings. HARDWARE: None in the chest. OTHER: No other significant finding. IMPRESSION: COPD. NO ACUTE RADIOGRAPHIC FINDING IN THE CHEST. TECHNICAL DOCUMENTATION: JOB ID: [id number] 2010 [employer]- All Rights Reserved Reading location - IP/workstation name: [email or web address]
[2020-05-05 19:02] LABS: ABSOLUTE LYMPHOCYTES (AUTO) 2.1 10^3/uL (0.5-4.7); ABSOLUTE MONOCYTES (AUTO) 0.6 10^3/uL (0.1-1.4); BASOPHILS % (AUTO) 0.2 % (0-2); EOSINOPHILS % (AUTO) 0.3 % (0-6); HEMATOCRIT 45.9 % (36.0-47.0); HEMOGLOBIN 15.5 g/dL (12.0-15.5); MEAN CORPUSCULAR HEMOGLOBIN 31.7 pg (27.0-33.4); MEAN CORPUSCULAR HGB CONC 33.8 g/dL (32.0-36.0); MEAN CORPUSCULAR VOLUME 94 fl (80-97); MONOCYTES % (AUTO) 4.4 % (3-13); PLATELET COUNT 236 10^3/uL (150-450); RED BLOOD COUNT 4.89 10^6/uL (3.72-5.28); SEGMENTED NEUTROPHILS % (AUTO) 80.1 % (42-78); TOTAL CELLS COUNTED % (AUTO) 100 %; WHITE BLOOD COUNT 13.7 10^3/uL (4.0-10.5)
[2020-05-05 19:25] LABS: ALKALINE PHOSPHATASE 69 U/L (38-126); ANION GAP 10 (5-19); ASPARTATE AMINO TRANSFERASE 29 U/L (14-36); BILIRUBIN,DIRECT 0.3 mg/dL (0.0-0.4); BILIRUBIN,TOTAL 0.3 mg/dL (0.2-1.3); BLOOD UREA NITROGEN 13 mg/dL (7-20); CALCIUM 9.4 mg/dL (8.4-10.2); CARBON DIOXIDE 24 mmol/L (22-30); CHLORIDE 103 mmol/L (98-107); GLUCOSE 204 mg/dL (75-110); POTASSIUM 4.2 mmol/L (3.6-5.0); TOTAL PROTEIN 6.7 g/dL (6.3-8.2)
[2020-05-05] MEDS ORDERED: NYSTATIN 500000 UNIT/5 ML UDCUP PO ONE (19:48)
== END 2020-05-05 20:01 | disposition home or self-care (01) ==
LOC: ER 17:13
DX: B37.0 Candidal stomatitis (principal); J43.9 Emphysema, unspecified; R49.0 Dysphonia; R09.82 Postnasal drip; J02.9 Acute pharyngitis, unspecified; K50.90 Crohn's disease, unspecified, without complications; Z79.899 Other long term (current) drug therapy; Z79.52 Long term (current) use of systemic steroids; Z87.891 Personal history of nicotine dependence; Z88.0 Allergy status to penicillin; Z20.828 Contact with and (suspected) exposure to other viral communicable diseases
CPT/HCPCS: 99284; 36415; 87070; 87880; 85025; 80053; 71045; U0003; A9270; C9803; 87635

== ENCOUNTER 2020-05-24 18:29 | Emergency (ER) | payer MEDICARE ==
[2020-05-24 20:42] LABS: ABSOLUTE BASOPHILS # (AUTO) 0.1 10^3/uL (0.0-0.2); ABSOLUTE EOSINOPHILS # (AUTO) 0.1 10^3/uL (0.0-0.6); ABSOLUTE LYMPHOCYTES (AUTO) 3.1 10^3/uL (0.5-4.7); ABSOLUTE MONOCYTES (AUTO) 0.8 10^3/uL (0.1-1.4); ABSOLUTE NEUT (AUTO) 5.7 10^3/uL (1.7-8.2); APPEARANCE,URINE SLIGHTLY-CLOUDY; BASOPHILS % (AUTO) 0.6 % (0-2); BILIRUBIN,URINE NEGATIVE (NEGATIVE); GLUCOSE, URINE NEGATIVE (NEGATIVE); HEMATOCRIT 46.7 % (36.0-47.0); HEMOGLOBIN 15.8 g/dL (12.0-15.5); KETONES,URINE TRACE mg/dL (NEGATIVE); LEUKOCYTE ESTERASE,URINE TRACE (NEGATIVE); LYMPHOCYTES % (AUTO) 31.5 % (13-45); MEAN CORPUSCULAR HEMOGLOBIN 32.1 pg (27.0-33.4); MEAN CORPUSCULAR HGB CONC 33.9 g/dL (32.0-36.0); MEAN CORPUSCULAR VOLUME 95 fl (80-97); NITRITE,URINE NEGATIVE (NEGATIVE); PLATELET COUNT 226 10^3/uL (150-450); PROTEIN,URINE NEGATIVE (NEGATIVE); RED BLOOD COUNT 4.93 10^6/uL (3.72-5.28); RED CELL DISTRIBUTION WIDTH 14.3 % (11.5-14.0); SEGMENTED NEUTROPHILS % (AUTO) 58.9 % (42-78); TOTAL CELLS COUNTED % (AUTO) 100 %; URINE SPECIFIC GRAVITY 1.021; WHITE BLOOD COUNT 9.7 10^3/uL (4.0-10.5)
[2020-05-24 20:43] LABS: COLOR,URINE YELLOW
[2020-05-24 20:45] LABS: INTERNATIONAL RATION (INR) 0.92; PROTHROMBIN TIME 12.6 SEC (11.4-15.4)
[2020-05-24 20:46] LABS: PARTIAL THROMBOPLASTIN TIME 28.6 SEC (23.5-35.8)
--- NOTE | 2020-05-24 20:47 | RADIOLOGY REPORT (SQ) ---
EXAM DESCRIPTION: XR CHEST 2 VIEWS COMPLETED DATE/TME: 05/24/2020 20:13 CLINICAL HISTORY: 55 years, Female, Altered mental status COMPARISON: Chest x-ray 05/05/2020 TECHNIQUE: PA and lateral views. FINDINGS: Cardiomediastinal silhouette is not enlarged. Lungs are moderately hyperinflated. Mild bronchial wall thickening. No definite infiltrate or pleural effusion. IMPRESSION: Suspected COPD/emphysema. No significant acute findings.
[2020-05-24 20:56] LABS: ALBUMIN 4.8 g/dL (3.5-5.0); ALKALINE PHOSPHATASE 59 U/L (38-126); ANION GAP 7 (5-19); ASPARTATE AMINO TRANSFERASE 33 U/L (14-36); BILIRUBIN,DIRECT 0.1 mg/dL (0.0-0.4); BILIRUBIN,TOTAL 0.4 mg/dL (0.2-1.3); BLOOD UREA NITROGEN 14 mg/dL (7-20); CALCIUM 10.2 mg/dL (8.4-10.2); CARBON DIOXIDE 35 mmol/L (22-30); CHLORIDE 97 mmol/L (98-107); GLUCOSE 105 mg/dL (75-110); POTASSIUM 4.4 mmol/L (3.6-5.0); TOTAL PROTEIN 7.9 g/dL (6.3-8.2)
--- NOTE | 2020-05-25 01:51 | ER Document Report ---
ED General - General Chief Complaint: Altered Mental Status Stated Complaint: POSSIBLE LOW O2/AMS Time Seen by Provider: 05/24/20 19:32 Primary Care Provider: LUCILLE FRANKS MD [Primary Care Provider] - Follow up as needed TRAVEL OUTSIDE OF THE [place] IN LAST 30 DAYS: No - HPI Notes: Patient is a 55-year-old female presents to the emergency department for evaluation of altered mental status and lightheadedness. Evidently it started yesterday. She has had this intermittently in the past. She was at Dr. Cerda's office today. Her pulse ox was reportedly low. The patient states she is on 2 L nasal cannula intermittently. She states she has been told in the past that her "CO2 is built up" and she suspects it might of happened today. She has had a cough, but she states is really not much worse than normal. No fevers or chills. No nausea or vomiting. She has chronic pain but states is no different than normal. She is drinking normally. - Related Data Allergies/Adverse Reactions: Penicillins Allergy (Verified 12/04/19 18:43) VOMITING Home Medications: +pristiq, phenergan, protonix, albuteral, oxycodone, xanax, zanaflex, nicotene patch Past Medical History - General Information source: Patient - Social History Smoking Status: Current Every Day Smoker Family History: Reviewed & Not Pertinent, CAD - Mother and brother, COPD - Father, DM - Father - Past Medical History Cardiac Medical History: Denies: Hx Coronary Artery Disease, Hx Hypertension Pulmonary Medical History: Reports: Hx COPD, Hx Pneumonia, Hx Respiratory Failure Neurological Medical History: Denies: Hx Seizures Endocrine Medical History: Denies: Hx Diabetes Mellitus Type 1, Hx Diabetes Mellitus Type 2, Hx Hyperthyroidism, Hx Hypothyroidism GI Medical History: Reports: Hx Crohn's Disease, Hx Colonoscopy, Hx Endoscopy. Denies: Hx Cirrhosis, Hx Hepatitis, Hx Ulcerative Colitis Musculoskeletal Medical History: Denies Hx Arthritis, Denies Hx Gout Skin Medical History: Denies Hx Eczema, Denies Hx Psoriasis Psychiatric Medical History: Reports: Hx Depression Infectious Medical History: Denies: Hx Hepatitis Past Surgical History: Reports: Hx Abdominal Surgery - gastric by-pass, Hx Bowel Surgery, Hx Cholecystectomy, Hx Gastric Bypass Surgery, Hx Herniorrhaphy - Multiple ventral hernia repairs, Hx Orthopedic Surgery - Cervical spine surgery (discectomies), Other - Colonoscopy, bowel perforation repair - Immunizations Immunizations up to date: Yes Hx Diphtheria, Pertussis, Tetanus Vaccination: Yes - 06/09/2019 Review of Systems - Review of Systems Constitutional: No symptoms reported EENT: No symptoms reported Cardiovascular: No symptoms reported Respiratory: See HPI Gastrointestinal: No symptoms reported Genitourinary: No symptoms reported Musculoskeletal: No symptoms reported Skin: No symptoms reported Neurological/Psychological: No symptoms reported -: Yes All other systems reviewed and negative Physical Exam - Vital signs Vitals: Temp Pulse Resp BP Pulse Ox 98.4 F 80 16 124/82 98 05/24/20 18:37 05/24/20 18:37 05/24/20 18:37 05/24/20 18:37 05/24/20 18:37 - Notes Notes: This is a frail-appearing 55-year-old female who appears older than her stated age, in no acute distress. Vital signs reviewed, please refer to chart. Head is normocephalic, atraumatic. Pupils equal round, reactive to light. Neck is supple without meningismus. Heart is regular rate and rhythm. Lungs reveal occasional rhonchi and diminished breath sounds throughout. Abdomen is soft, nontender, normoactive bowel sounds throughout. Extremities without cyanosis, clubbing. Posterior calves are nontender. Peripheral pulses are equal. Skin is warm and dry. Patient is awake, alert, oriented x3. Cranial nerves II - XII are grossly intact without focal neurological deficits. Strength is plus 5 out of 5 bilateral upper and lower extremities. Sensation is intact. Reflexes symmetrical. Intact [id number], rapid alternating movements, [id number]. Course - Re-evaluation Re-evalutation: 05/25/20 02:56 Patient presents to the emergency department for evaluation. She said dizziness for the last 2 days. 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 She laboratory vesication's and imaging is ordered through triage. ABG was not obtained into the patient was back in the room. ABG does show some mild hypercapnia, but her pH is normal. Her hypercapnia is comparable to where she was in the past. She remains awake, alert, oriented x3, with no focal neurological deficits, and states that she has no symptoms at this time. I will get an discharge to home. She is to follow-up with Dr. Cerda as well as primary care. She is encouraged to quit smoking. She is to return to the ED with worsening or new concerning symptoms of any sort. - Vital Signs Vital signs: Temp Pulse Resp BP Pulse Ox 98.4 F 80 14 124/82 98 05/24/20 18:37 05/24/20 18:37 05/25/20 01:30 05/24/20 18:37 05/25/20 01:30 - Laboratory Result Diagrams: 05/24/20 20:06 05/24/20 20:06 Laboratory results interpreted by me: 05/24/20 05/24/20 05/24/20 20:06 20:06 20:06 Hgb 15.8 H RDW 14.3 H Carbonic Acid ABG pCO2 ABG HCO3 ABG Total CO2 Chloride 97 L Carbon Dioxide 35 H Creatinine 0.51 L Urine Ketones TRACE H Urine Urobilinogen 4.0 H Ur Leukocyte Esterase TRACE H Urine Ascorbic Acid 20 H 05/25/20 02:20 Hgb RDW Carbonic Acid 1.72 H ABG pCO2 57.0 H ABG HCO3 31.7 H ABG Total CO2 33.4 H Chloride Carbon Dioxide Creatinine Urine Ketones Urine Urobilinogen Ur Leukocyte Esterase Urine Ascorbic Acid - Diagnostic Test Radiology reviewed: Reports reviewed Radiology results interpreted by me: 05/25/20 01:54 Chest X-Ray 05/24/20 19:34 IMPRESSION: Suspected COPD/emphysema. No significant acute findings. - EKG Interpretation by Me Additional EKG results interpreted by me: 05/25/20 02:57 Sinus mechanism with rate of 63 bpm. Normal axis and intervals. No acute ST changes concerning for ischemia or infarction. Discharge - Discharge Clinical Impression: Transient alteration of awareness, Hypercapnemia, Dizziness COPD (chronic obstructive pulmonary disease) Qualifiers: COPD type: unspecified COPD Qualified Code(s): J44.9 - Chronic obstructive pulmonary disease, unspecified Condition: Stable Disposition: HOME, SELF-CARE Instructions: Dizziness ([facility]) Additional Instructions: Your CO2 level is mildly elevated today, but it seems to be chronic. Please follow-up closely with Dr. Cerda, and see your primary care provider next week. Return to the emergency department if you develop worsening or new concerning symptoms of any sort. Referrals: LUCILLE FRANKS MD [Primary Care Provider] - Follow up as needed
[2020-05-25 02:45] LABS: ARTERIAL BLOOD BASE EXCESS 4.6 mmol/L; ARTERIAL BLOOD FIO2 2L; ARTERIAL BLOOD H2CO3 1.72 mmol/L (1.05-1.35); ARTERIAL BLOOD HCO3 31.7 mmol/L (20-24); ARTERIAL BLOOD O2 SATURATION 95.7 % (94-98); ARTERIAL BLOOD PH 7.36 (7.35-7.45); ARTERIAL BLOOD PO2 83.7 mmHg (80-100); ARTERIAL BLOOD TOTAL CO2 33.4 mmol/L (21-25)
[2020-05-25 03:36] VITALS: BP 102/82
--- NOTE | 2020-05-26 09:14 | EKG REPORT ---
SEVERITY:- NORMAL ECG - SINUS RHYTHM : Confirmed by: Tim Coburn 26-May-2020 09:14:18
--- OUTSIDE RECORDS SUMMARY | 2020-05-28 08:51 | XMS REPORT ---
:1965 Author Organization [facility] Address [address] [place] [address] Care Team Providers Name Role Phone Mimi Rosales Attending Clinician Unavailable Allergies, Adverse Reactions, Alerts Allergy Name Allergy Status Severity Reaction(s) Onset Inactive Treat ing Comments Type Date Date Clinician Penicillins Allergy Active to Drug (Finding) Medications Ordered Filled Start Stop Current Ordering Indication Dosage Frequency Signature Comments Components Medication Medication Date Date Medication? Clinician (SIG) Name Name Feraheme 2019- No 510mg 12-08 00:00: 00:00 00 :00 Sodium 2019-2019- No 250mL Chloride 12-08 00:00: 00:00 00 :00 Hydration 2019-2019- No 1000mL 1000mL NS 11-08 00:00: 00:00 00 :00 ALPRAZolam Yes 1 oxyCODONE Yes 1 HCl Pristiq Yes 2 Promethazin Yes 1 e HCl Protonix Yes 1 Trelegy Yes 1 Ellipta Ventolin Yes 2 HFA Problems Condition Condition Condition Status Onset Resolution Last Treatin g Comments Name Details Category Date Date Treatment Clinician Date Dehydration Dehydration Diagnosis active Intestinal Intestinal Diagnosis active malabsorpti malabsorpti on on Iron Iron Diagnosis active deficiency deficiency anemia anemia Procedures Procedure Date / Time Performed Performing Clinician Magdalene wilson Perforated Bowel Herniated Disc Gastric Bypass cholecystectomy hernia repair Results Test Description Test Time Test Comments Text Results Atomic Results Result Comments Creatinine 2020-02-20 13:30:00 Test Item Value Reference Range Comments Creatinine (test code = Creatinine) 0.4900 mg/dL 0.5700-1.000 0 Cr Clearance (Est) (test code = Cr Clearance 101.5900 75. 0000-115.0000 (Est)) Glucose (test code = Glucose) 123.0000 mg/dL 65.0000-99.0000 BUN (test code = BUN) 14.0000 mg/dL 6.0000-24.0000 eGFR Ycc-Rpnvyjv-Nufddfzd (test code = eGFR 109.0000 Qzg-Zzsgdrn-Lwgwdhej) eGFR -Beninese (test code = eGFR 125.0000 -Beninese) BUN/Creat Ratio (test code = BUN/Creat Ratio) 29.0000 9. 0000-23.0000 Sodium (test code = Sodium) 139.0000 mmol/L 134.0000-144.0000 Potassium (test code = Potassium) 4.3000 mmol/L 3.5000-5.2000 Chloride (test code = Chloride) 103.0000 mmol/L 96.0000-106.0000 CO2 (test code = CO2) 22.0000 mmol/L 20.0000-29.0000 Calcium (test code = Calcium) 9.0000 mg/dL 8.7000-10.2000 Protein, Total (test code = Protein, Total) 6.0000 g/dL 6.00 00-8.5000 Albumin (test code = Albumin) 4.0000 g/dL 3.8000-4.9000 Globulin (test code = Globulin) 2.0000 g/dL 1.5000-4.5000 A/G Ratio (test code = A/G Ratio) 2.0000 1.2000-2.2000 Bilirubin, Total (test code = Bilirubin, Total) 0.2000 mg/dL 0.0000-1.2000 Alkaline Phosphatase (test code = Alkaline 54.0000 39.00 00-117.0000 Phosphatase) AST (SGOT) (test code = AST (SGOT)) 19.0000 0.0000-40.00 00 ALT (SGPT) (test code = ALT (SGPT)) 11.0000 0.0000-32.00 00 Iron, Total (test code = Iron, Total) 68.0000 27.0000-15 9.0000 TIBC (test code = TIBC) 301.0000 250.0000-450.0000 UIBC (test code = UIBC) 233.0000 131.0000-425.0000 % Iron Saturation (test code = % Iron 23.0000 % 15.0000-55 .0000 Saturation) Vitamin B12 (test code = Vitamin B12) 709.0000 pg/mL 232.0000-1 245.0000 Ferritin (test code = Ferritin) 265.0000 ng/mL 15.0000-150.0000 [id number] 08:48:00 Test Item Value Reference Range Comments WBC (test code = WBC) 8.9000 4.0000-10.0000 Lymphocytes % (test code = Lymphocytes %) 27.1000 % 22.400 0-43.6000 MID% (test code = MID%) 7.1000 % 1.2000-11.2000 Neutrophils % (test code = Neutrophils %) 65.8000 % 48.900 0-69.9000 Lymphocytes (test code = Lymphocytes) 2.4000 1.2000-3.2 000 MID (test code = MID) 0.7000 0.1000-1.1000 Neutrophils (test code = Neutrophils) 5.8000 1.5000-6.7 000 RBC (test code = RBC) 4.9800 3.7000-4.9000 HGB (test code = HGB) 14.9000 g/dL 11.2000-18.0000 HCT (test code = HCT) 46.0000 % 34.0000-44.0000 MCV (test code = MCV) 92.3000 fL 80.0000-94.0000 MCH (test code = MCH) 29.9000 pg 27.0000-34.0000 MCHC (test code = MCHC) 32.4000 g/dL 31.5000-36.0000 RDW (test code = RDW) 15.6000 11.0000-18.0000 PLT (test code = PLT) 232.0000 140.0000-440.0000 MPV (test code = MPV) 8.7000 fL 6.8000-10.6000 [id number] 11:27:00 Test Item Value Reference Range Comments Creatinine (test code = Creatinine) 0.5500 mg/dL 0.5700-1.000 0 Glucose (test code = Glucose) 152.0000 mg/dL 65.0000-99.0000 BUN (test code = BUN) 10.0000 mg/dL 6.0000-24.0000 eGFR Bce-Pquwjjb-Seqemasa (test code = 105.0000 eGFR Inp-Hbtqmwg-Yrvexhhp) eGFR -Beninese (test code = eGFR 121.0000 -Beninese) BUN/Creat Ratio (test code = BUN/Creat 18.0000 9.0000-23 .0000 Ratio) Sodium (test code = Sodium) 140.0000 mmol/L 134.0000-144.0000 Potassium (test code = Potassium) 4.1000 mmol/L 3.5000-5.2000 Chloride (test code = Chloride) 103.0000 mmol/L 96.0000-106.0000 CO2 (test code = CO2) 22.0000 mmol/L 20.0000-29.0000 Calcium (test code = Calcium) 9.3000 mg/dL 8.7000-10.2000 Protein, Total (test code = Protein, 6.5000 g/dL 6.0000-8.50 00 Total) Albumin (test code = Albumin) 4.1000 g/dL 3.8000-4.9000 Globulin (test code = Globulin) 2.4000 g/dL 1.5000-4.5000 A/G Ratio (test code = A/G Ratio) 1.7000 1.2000-2.2000 Bilirubin, Total (test code = Bilirubin, 0.2000 mg/dL 0.0000- 1.2000 Total) Alkaline Phosphatase (test code = 59.0000 39.0000-117.00 00 Alkaline Phosphatase) AST (SGOT) (test code = AST (SGOT)) 18.0000 0.0000-40.00 00 ALT (SGPT) (test code = ALT (SGPT)) 16.0000 0.0000-32.00 00 Iron, Total (test code = Iron, Total) 31.0000 27.0000-15 9.0000 TIBC (test code = TIBC) 377.0000 250.0000-450.0000 UIBC (test code = UIBC) 346.0000 131.0000-425.0000 % Iron Saturation (test code = % Iron 8.0000 % 15.0000-55 .0000 Saturation) Vitamin B12 (test code = Vitamin B12) 932.0000 pg/mL 232.0000-1 245.0000 Ferritin (test code = Ferritin) 42.0000 ng/mL 15.0000-150.0000 [id number] 11:11:00 Test Item Value Reference Range Comments WBC (test code = WBC) 10.1999 4.0000-10.0000 Lymphocytes % (test code = Lymphocytes %) 31.9000 % 22.400 0-43.6000 MID% (test code = MID%) 7.1000 % 1.2000-11.2000 Neutrophils % (test code = Neutrophils %) 61.0000 % 48.900 0-69.9000 Lymphocytes (test code = Lymphocytes) 3.1999 1.2000-3.2 000 MID (test code = MID) 0.8000 0.1000-1.1000 Neutrophils (test code = Neutrophils) 6.2000 1.5000-6.7 000 RBC (test code = RBC) 5.3700 3.7000-4.9000 HGB (test code = HGB) 16.0000 g/dL 11.2000-18.0000 HCT (test code = HCT) 49.7000 % 34.0000-44.0000 MCV (test code = MCV) 92.4000 fL 80.0000-94.0000 MCH (test code = MCH) 29.8000 pg 27.0000-34.0000 MCHC (test code = MCHC) 32.2000 g/dL 31.5000-36.0000 RDW (test code = RDW) 15.6000 11.0000-18.0000 PLT (test code = PLT) 273.0000 140.0000-440.0000 MPV (test code = MPV) 8.1000 fL 6.8000-10.6000 Encounters Start End Encounter Admission Attending Care Care Encounter Date/Time Date/Time Type Type Clinicians Facility Department ID 2020-05-14 2020-05-14 Outpatient Hernando yeager [id number] 00:00:00 00:00:00 [facility] Oncology Oncology [facility] 2020-03-23 2020-03-23 Outpatient Hernando Le rn [id number] 00:00:00 00:00:00 [facility] Oncology Oncology [facility] 2020-03-20 2020-03-20 Outpatient Hernando Le rn [id number] 00:00:00 00:00:00 [facility] Oncology Oncology [facility] 2020-03-16 2020-03-16 Outpatient Hernando Le rn [id number] 00:00:00 00:00:00 [facility] Oncology Oncology [facility] 2020-03-12 2020-03-12 Outpatient Hernando Le rn [id number] 00:00:00 00:00:00 [facility] Oncology Oncology [facility] 2020-03-09 2020-03-09 Outpatient Hernando Le rn [id number] 00:00:00 00:00:00 [facility] Oncology Oncology [facility] 2020-03-08 2020-03-08 Outpatient Hernando Le rn [id number] 00:00:00 00:00:00 [facility] Oncology Oncology [facility] 2020-03-07 2020-03-07 Outpatient Hernando Le rn [id number] 00:00:00 00:00:00 [facility] [place] 2020-03-06 2020-03-06 Outpatient Dioer Dioer n [id number] 00:00:00 00:00:00 [facility] Oncology Oncology [facility] [place] 2020-02-22 2020-02-22 Outpatient Southeaster Dioer n [id number] 00:00:00 00:00:00 [facility] Oncology Oncology [facility] [place] 2020-02-21 2020-02-21 Outpatient Dioanahi Dioer n [id number] 00:00:00 00:00:00 [facility] Oncology [facility] [place] 2020-02-20 2020-02-20 JermaineCristophersivakumarHernando [facility] [id number] 00:00:00 00:00:00 Shanelle [facility] Oncology Oncology [facility] 2020-02-17 2020-02-17 Outpatient Hernando Whartoner n [id number] 00:00:00 00:00:00 [facility] Oncology Oncology [facility] 2020-02-01 2020-02-01 Outpatient Hernando Le rn [id number] 00:00:00 00:00:00 [facility] Oncology [facility]cology [facility] [place] 2020-01-25 2020-01-25 Outpatient Hernando Whartoner n [id number] 00:00:00 00:00:00 [facility] Oncology Oncology [facility] 2020-01-23 2020-01-23 Outpatient Hernando Whartoner n [id number] 00:00:00 00:00:00 [facility] Oncology Oncology [facility] [place] 2020-01-19 2020-01-19 Outpatient Dioanahi Dioer n [id number] 00:00:00 00:00:00 [facility] Oncology Oncology [facility] [place] 2020-01-04 2020-01-04 Outpatient Southeaster Dioer n [id number] 00:00:00 00:00:00 [facility] Oncology Oncology [facility] [place] 2019-12-16 2019-12-16 Outpatient Hernando Le rn [id number] 00:00:00 00:00:00 [facility] Oncology Oncology [facility] 2019-12-15 2019-12-15 Outpatient Southeastanahi Dioer n [id number] 00:00:00 00:00:00 [facility] Oncology Oncology [facility] 2019-12-09 2019-12-09 Outpatient Hernando Le rn [id number] 00:00:00 00:00:00 [facility] [place] 2019-12-08 2019-12-08 Outpatient Hernando Lee rn [id number] 00:00:00 00:00:00 [facility] Oncology Oncology [facility] [place] 2019-12-07 2019-12-07 Outpatient Hernando Whartoner n [id number] 00:00:00 00:00:00 [facility] Oncology Oncology [facility] 2019-11-24 2019-11-24 Outpatient VetoHernando deras Dioe rn [id number] 00:00:00 00:00:00 [facility] Oncology [facility]cology [facility] [place] 2019-11-23 2019-11-23 Outpatient VetoHernando derase rn [id number] 00:00:00 00:00:00 [facility] Oncology Oncology [facility] 2019-11-22 2019-11-22 Outpatient Hernando Villagomez n [id number] 00:00:00 00:00:00 [facility] Oncology Oncology [facility] 2019-11-09 2019-11-09 Outpatient CristopherHernando shaver Dioe rn [id number] 00:00:00 00:00:00 [facility] Oncology [facility]cology [facility] [place] 2019-11-08 2019-11-08 Outpatient Hernando Whartoner n [id number] 00:00:00 00:00:00 [facility] Oncology Oncology [facility] 2019-10-12 2019-10-12 Jermaine Hernando Le [facility] [id number] 00:00:00 00:00:00 Shanelle [facility] Oncology Oncology [facility] 2019-09-14 2019-09-14 Outpatient CristopherHernando shaver Dioe rn [id number] 00:00:00 00:00:00 [facility] Oncology [facility] [place] 2019-08-16 2019-08-16 Outpatient VetoHernando derase rn [id number] 00:00:00 00:00:00 [facility] Oncology Oncology [facility] 2019-06-29 2019-06-29 Outpatient Hernando Whartoner n [id number] 00:00:00 00:00:00 [facility] Oncology Oncology [facility] [place] 2019-06-28 2019-06-28 Outpatient Hernando Whartoner n [id number] 00:00:00 00:00:00 [facility] Oncology Oncology [facility] 2019-06-21 2019-06-21 Outpatient [facility] n [id number] 00:00:00 00:00:00 [facility] Oncology Oncology [facility] 2019-06-14 2019-06-14 Outpatient [facility] n [id number] 00:00:00 00:00:00 [facility] Social History Smoking Status Start Date Stop Date Yes - but quit (former) 2020-02-20 00:00:00 2020-02-20 00:00 :00 Social History Observation Description Sex Female Vital Signs Vital Name Observation Time Observation Value Comments BMI 2020-03-16 12:23:21 18.1100 BP gandhi 2020-03-16 12:23:21 82.0000 mm[Hg] Bdy height 2020-03-16 12:23:21 66.0000 [in_i] SaO2% BldA PulseOx 2020-03-16 12:23:21 97.0000 % Heart rate 2020-03-16 12:23:21 82.0000 /min Resp rate 2020-03-16 12:23:21 16.0000 /min BP sys 2020-03-16 12:23:21 111.0000 mm[Hg] Body temperature 2020-03-16 12:23:21 97.2000 [degF] Weight 2020-03-16 12:23:21 112.2000 [lb_av] Resp rate 2020-03-12 12:36:40 16.0000 /min BP sys 2020-03-12 12:36:40 133.0000 mm[Hg] Body temperature 2020-03-12 12:36:40 98.4000 [degF] Weight 2020-03-12 12:36:40 111.8000 [lb_av] BMI 2020-03-12 12:36:40 18.0500 BP gandhi 2020-03-12 12:36:40 76.0000 mm[Hg] Bdy height 2020-03-12 12:36:40 66.0000 [in_i] SaO2% BldA PulseOx 2020-03-12 12:36:40 97.0000 % Heart rate 2020-03-12 12:36:40 69.0000 /min BMI 2020-02-20 09:09:48 18.0800 BP gandhi 2020-02-20 09:09:48 57.0000 mm[Hg] Bdy height 2020-02-20 09:09:48 66.0000 [in_i] SaO2% BldA PulseOx 2020-02-20 09:09:48 97.0000 % Heart rate 2020-02-20 09:09:48 63.0000 /min Resp rate 2020-02-20 09:09:48 18.0000 /min BP sys 2020-02-20 09:09:48 98.0000 mm[Hg] Body temperature 2020-02-20 09:09:48 97.9000 [degF] Weight 2020-02-20 09:09:48 112.0000 [lb_av] Bdy height 2019-12-08 12:06:26 66.0000 [in_i] Heart rate 2019-12-08 12:06:26 97.0000 /min Resp rate 2019-12-08 12:06:26 14.0000 /min BP sys 2019-12-08 12:06:26 120.0000 mm[Hg] Body temperature 2019-12-08 12:06:26 98.6000 [degF] Weight 2019-12-08 12:06:26 118.8000 [lb_av] BMI 2019-12-08 12:06:26 19.1700 BP gandhi 2019-12-08 12:06:26 74.0000 mm[Hg] Body temperature 2019-11-23 10:59:54 98.1000 [degF] BP gandhi 2019-11-09 11:33:32 71.0000 mm[Hg] SaO2% BldA PulseOx 2019-11-09 11:33:32 96.0000 % Heart rate 2019-11-09 11:33:32 74.0000 /min Resp rate 2019-11-09 11:33:32 16.0000 /min BP sys 2019-11-09 11:33:32 111.0000 mm[Hg] Body temperature 2019-11-09 11:33:32 97.2000 [degF] Weight 2019-11-09 11:33:32 119.4000 [lb_av]
== END 2020-05-25 03:30 | disposition home or self-care (01) ==
LOC: ER 18:29
DX: R40.4 Transient alteration of awareness (principal); R06.89 Other abnormalities of breathing; R42 Dizziness and giddiness; J44.9 Chronic obstructive pulmonary disease, unspecified; F17.200 Nicotine dependence, unspecified, uncomplicated; Z88.0 Allergy status to penicillin; Z98.84 Bariatric surgery status
CPT/HCPCS: 36415; 71046; 80053; 81001; 82803; 83735; 84484; 85025; 85610; 85730; 93005; 93010; 99285

== ENCOUNTER → 2020-07-04 | Outpatient (CLI) | payer MEDICARE ==
--- NOTE | 2020-07-04 10:46 | RADIOLOGY REPORT (SQ) ---
EXAM DESCRIPTION: CHEST 2 VIEWS IMAGES COMPLETED DATE/TIME: 07/04/2020 10:39 am REASON FOR STUDY: (J96.11)CHRONIC RESPIRATORY FAILURE WITH HYPOXIA J96.11 CHRONIC RESPIRATORY FAILU RE WITH HYPOXIA COMPARISON: 05/24/2020 NUMBER OF VIEWS: Two view. TECHNIQUE: Frontal and lateral radiographic views of the chest acquired. LIMITATIONS: None. FINDINGS: LUNGS AND PLEURA: No opacities, masses or pneumothorax. No pleural effusion. Attenuated bl ood vessels and flattened sue-diaphragms. MEDIASTINUM AND HILAR STRUCTURES: No masses. No contour abnormalities. HEART AND VASCULAR STRUCTURES: Heart normal in size and contour. No evidence for failure. BONES: No acute findings. HARDWARE: None in the chest. OTHER: No other significant finding. IMPRESSION: COPD. NO ACUTE RADIOGRAPHIC FINDING IN THE CHEST. TECHNICAL DOCUMENTATION: JOB ID: [id number] 2010 [employer]- All Rights Reserved Reading location - IP/workstation name: [email or web address]
--- NOTE | 2020-07-04 11:57 | RADIOLOGY REPORT (SQ) ---
EXAM DESCRIPTION: NM LUNG PERFUSION SCAN IMAGES COMPLETED DATE/TIME: 07/04/2020 11:48 am REASON FOR STUDY: (J96.11)CHRONIC RESPIRATORY FAILURE WITH HYPOXIA J96.11 CHRONIC RESPIRATORY FAILU RE WITH HYPOXIA COMPARISON: Chest x-ray done earlier the same day. RADIONUCLIDE AND DOSE: 5.34 millicuries TC-99m MAA The route of agent administration: Intravenous TECHNIQUE: Eight views of the lungs acquired following injection of MAA. LIMITATIONS: None. FINDINGS: PERFUSION: Mild heterogeneous activity consistent with the lung findings of COPD. No sign ificant defects. OTHER: No other significant finding. IMPRESSION: NORMAL PERFUSION LUNG SCAN. TECHNICAL DOCUMENTATION: JOB ID: [id number] 2010 [employer]- All Rights Reserved Reading location - IP/workstation name: [email or web address]
== END ==
LOC: RAD 10:20
PROVIDERS: ATTEND Internal Medicine Pulmonary Disease
DX: J96.11 Chronic respiratory failure with hypoxia (principal)
CPT/HCPCS: 71046; 78580; A9540; Q9969